=== PATIENT | female | born 1985 | race Caucasian/White ===

== ENCOUNTER 2025-02-08 11:19 | Inpatient (IN) | payer OTHER, SELFPAY ==
--- NOTE | ~2025-02-08 | CT_ITS ---
EXAMINATION: CT ABDOMEN PELVIS WITH IV CONTRAST HISTORY: abdominal pain, nausea, vomiting COMPARISON: There are no prior studies for available comparison. TECHNIQUE: CT scan of the abdomen and pelvis was performed following administration of 85 mL Omnipaque 350 using standard departmental protocol. Coronal and sagittal reformatted images were generated and reviewed. Oral contrast material was not administered at the request of the referring physician. This CT exam was performed with one or more of the following dose reduction techniques: automated exposure control, adjustment of the mA and/or kV according to patient size, use of iterative reconstruction technique. DLP: 421 mGy-cm FINDINGS: LOWER CHEST: The visualized lung bases are clear. There is no pleural effusion. CARDIOVASCULATURE: The heart is normal in size. There is no pericardial effusion. LIVER: The liver is normal in size and contour. Numerous hepatic cysts are noted measuring up to 1.6 cm. The hepatic and portal veins are patent. GALLBLADDER / BILE DUCTS: The gallbladder is surgically absent. There is no intra or extrahepatic biliary ductal dilatation. SPLEEN: The spleen is normal in size. No focal splenic lesion is identified. PANCREAS: The pancreas is unremarkable in appearance. ADRENAL GLANDS: Within normal limits. KIDNEYS/RETROPERITONEUM: No renal calculi are identified. There is no hydronephrosis. Innumerable bilateral renal cysts are noted consistent with polycystic kidney disease. LYMPH NODES: No abdominal or pelvic lymphadenopathy. VASCULATURE: The abdominal aorta is normal in caliber. MESENTERY/PERITONEUM: There is trace free fluid in the cul-de-sac. No masses. There is no free intraperitoneal gas. STOMACH: There is wall thickening of the distal esophagus versus a small hiatal hernia. The remainder of the stomach is collapsed. SMALL BOWEL: The small bowel is normal in caliber. COLON: There is a large amount of stool throughout the colon. APPENDIX: The appendix is not seen, however no inflammatory changes are seen adjacent to the cecum. URINARY BLADDER/PELVIC ORGANS: The urinary bladder is collapsed, limiting evaluation. The uterus is unremarkable. There are multiple bilateral ovarian follicles. BONES / SOFT TISSUES: No suspicious bony or soft tissue abnormalities. CT/CT abdomen pelvis w IV con IMPRESSION: 1. Polycystic kidney disease. 2. Wall thickening of the distal esophagus versus a small hiatal hernia. This could be further evaluated with upper endoscopy or barium swallow. 3. Large amount of stool throughout the colon. Electronically signed by: Trevon Lee MD 02/08/2025 12:55 PM EDT RP
[2025-02-08 11:22] VITALS: BP 124/68; PULSE 109; RESP 26; TEMP 36.8; O2SAT 100; BMI 27.4
--- NOTE | 2025-02-08 11:22 | ED.GENADULT ---
HPI - General Adult General Chief complaint: Nausea/Vomiting/Diarrhea Stated complaint: Vomiting, SB, Chills, cant feel extremitys Time Seen by Provider: 02/08/25 11:47 Source: patient Mode of arrival: ambulatory Limitations: no limitations History of Present Illness ED Provider: Neeru Haro PA-C HPI narrative: Patient is a 39 year old assigned female at with a history of chronic nausea / vomiting and polycystic kidneys presenting to the emergency department today with nausea, vomiting, and epigastric pain. Patient states that she has been non stop vomiting since 02/05/2025. Patient states that she does not have her appendix. Patient states that she does not smoke or use marijuana. Patient denies any dizziness, lightheadedness, fever, chills, blurry vision, double vision, loss of vision, chest pain, difficulty breathing, shortness of breath, back pain, night sweats, pain with urination, increased urinary frequency, increased urinary urgency, blood in her urine or stool, syncope or a near syncopal episode, recent trauma or falls, bowel incontinence, bladder incontinence, or any other complaints at this time. Relieving factors: none Exacerbating factors: none Associated symptoms: nausea/vomiting Treatments prior to arrival: none Related Data Home Medications ?Medication ?Instructions ?Recorded ?Confirmed calcium carbonate (Tums) 300 mg PO TID PRN Indigestion 02/08/25 02/08/25 diphenhydramine 25 1 tab PO BEDTIME PRN Insomnia 02/08/25 02/08/25 mg-acetaminophen 500 mg tablet (Tylenol PM Extra Strength) Allergies Allergy/AdvReac Type Severity Reaction Status Date / Time No Known Allergies (No Known Allergy Verified 02/08/25 11:23 Allergies*) Review of Systems Constitutional: Constitutional: Reports no additional constitutional complaints, Denies chills, Denies fever(s) and Denies night sweats Eyes: Eyes: Reports no additional eye complaints, Denies blurry vision, Denies change in vision, Denies diplopia, Denies eye discharge, Denies loss of vision and Denies eye pain ENT: Denies dizziness Cardiovascular: Cardiovascular: Reports no additional cardiovascular complaints, Denies chest pain, Denies lightheadedness, Denies Loss of Consciousness and Denies dyspnea Respiratory: Respiratory: Reports no additional respiratory complaints and Denies dyspnea Gastrointestinal: Gastrointestinal: Reports no additional gastrointestinal complaints, Reports abdominal pain, Denies melena, Denies hematochezia, Denies change in bowel habits, Denies change in stool character, Reports nausea and Reports vomiting Genitourinary: Genitourinary: Denies hematuria, Denies urinary frequency, Denies dysuria, Denies urinary incontinence, Denies urinary hesitancy and Denies urinary urgency Musculoskeletal: Musculoskeletal: Reports no additional musculoskeletal complaints, Denies numbness and Denies tingling Neurologic: Denies dizziness, Denies loss of vision, Denies numbness and Denies tingling Psychiatric: Psychiatric: Reports no additional psychiatric complaints Endocrine: Endocrine: Reports no additional endocrine complaints Hematologic/Lymphatic: Hematologic/Lymphatic: Reports no additional hematologic/lymphatic complaints Allergic/Immunologic: Allergic/Immunologic: Reports no additional allergic/immunologic complaints PMFSH Past Medical History Attestation statement: The following information was validated with the patient. Source: old records reviewed and nursing notes reviewed Social History Social History Smoked in Last 30 Days: Yes Use of substances other than those prescribed or required for medical reasons: No Advance Directives: No Advance Directives Information Provided: Yes Do you have a plan to hurt others: No Plan Physical Exam ED Vital Signs: Vital Signs - 24 hr 02/08/25 11:22 02/08/25 12:52 Temperature 98.3 F 98.9 F Pulse Rate 109 H 74 Respiratory Rate 26 H 22 H Blood Pressure 124/68 159/94 H Pulse Oximetry 100 100 Oxygen Delivery Method Room Air Room Air BMI result Body Mass Index 27.4 Const General: cooperative, no acute distress, alert and awake Nutritional Appearance: well nourished Orientation/consciousness: patient oriented x3 HENMT Head: Yes normal to inspection and Yes atraumatic Ears: hearing grossly normal bilaterally and external ears normal General nose exam: Normal external nose present, no nasal discharge noted and no epistaxis Face and sinus: Yes normal facial exam, No abrasion and No laceration Mouth: Normal oral and palatal mucosa present, no drooling and no muffled voice Eyes General: appearance normal, both eyes and all related structures Periorbital: periorbital findings normal Eyelids: Yes eyelids normal Conjunctivae: conjunctivae normal Pupils: Equal, round and reactive pupils present EOM: EOMs intact bilaterally Neck Neck: Yes normal visual inspection, Yes full ROM and Yes no lymphadenopathy Resp Effort & Inspection: normal respiratory effort and able to speak in complete sentences Neuro General: patient oriented x3, moves all extremities and CN's II-XI intact bilaterally Cranial nerves: Yes Equal, round and reactive pupils present Cognition (Neuro): normal cognition Extrem General: Yes normal to inspection, Yes full ROM and Yes capillary refill normal Psych Appearance: grossly normal Mental Status: mental status grossly normal Affect: normal affect Attitude: cooperative Thought process: Normal thought process present Thought content: Normal thought content present Insight: Good insight present (Psych) Course Course Course Narrative: This is a rapid medical exam performed by Mely Li NP: Additional HPI, ROS, PE not included below will be deferred to primary provider. Patient is a 39-year-old female presenting to the ED with complaint of nausea, vomiting, chills since 3am Thursday. Complaining of tingling to bilateral forearms, hyperventilating in triage. Plan: viral panel, labs Medications Administered Generic Name Dose Route Start Last Admin Trade Name Freq PRN Reason Stop Dose Admin Lactated Ringer's 1,000 mls @ 150 mls/hr 02/08/25 14:15 02/08/25 14:22 Lr IVCONT 150 mls/hr .Q6H40M MARII Administration Discontinued Medications Generic Name Dose Route Start Last Admin Trade Name Freq PRN Reason Stop Dose Admin Al Hydroxide/Mg Hydroxide 15 ml 02/08/25 13:08 02/08/25 13:21 Magnesium Hydrox/Alum Hydrox 30 Ml Oral.Susp PO 02/08/25 13:09 15 ml ONCE ONE Administration Diazepam 2.5 mg 02/08/25 14:02 02/08/25 14:22 Diazepam 10 Mg/2 Ml Cartridge IVPUSH 02/08/25 14:03 2.5 mg STAT STA Administration Sodium Chloride 1,000 mls @ 999 mls/hr 02/08/25 12:00 02/08/25 14:05 Ns IV 02/08/25 13:00 Infused .Q1H1M MARII Infusion Magnesium Sulfate/Dextrose 1 gm in 100 mls @ 100 mls/hr 02/08/25 12:28 02/08/25 14:00 Magnesium Sulfate/D5w IV 02/08/25 13:27 Infused ONCE ONE Infusion Potassium Chloride 10 meq in 100 mls @ 100 mls/hr 02/08/25 12:30 02/08/25 14:25 Potassium Chloride/H20 IV 02/08/25 14:29 100 mls/hr Q1H MARII Administration Iohexol 85 ml 02/08/25 12:41 02/08/25 12:43 Iohexol 350 Mg/Ml 100 Ml Infus..Btl IV 02/08/25 12:42 85 ml ONCE ONE Administration Morphine Sulfate 4 mg 02/08/25 11:55 02/08/25 12:31 Morphine Sulfate 4 Mg/Ml Cartridge IVPUSH 02/08/25 11:56 4 mg ONCE ONE Administration Protocol Ondansetron HCl 4 mg 02/08/25 11:53 02/08/25 12:31 Ondansetron Hcl 4 Mg/2 Ml Vial IVPUSH 02/08/25 11:54 4 mg ONCE ONE Administration Ondansetron HCl 4 mg 02/08/25 11:55 02/08/25 12:37 Ondansetron Hcl 4 Mg/2 Ml Vial IVPUSH 02/08/25 11:56 Not Given ONCE ONE Pantoprazole Sodium 40 mg 02/08/25 13:08 02/08/25 13:21 Pantoprazole Sodium 40 Mg/10 Ml Vial IVPUSH 02/08/25 13:09 40 mg ONCE ONE Administration Medical Decision Making Medical Decision Making [facility] Narrative: Patient is a 39 year old assigned female at with a history of chronic nausea / vomiting and polycystic kidneys presenting to the emergency department today with nausea, vomiting, and epigastric pain. Patient's physical exam was as noted in the physical exam portion of this note. Patient's blood work showed WBC 20.8, potassium 3.1, anion gap 25, BUN 33, CR of 1.59, calcium 12.6, mag of 1.4, and lipase of 101. Patient's urine showed no acute process. Patient's CT abd/pelvis showed no acute process. Patient was given IV fluids, zofran, and morphine which she stated helped her symptoms some but did not resolve them. Patient still unable to tolerate PO. Patient was given magnesium and potassium. Patient's clinical presentation is not consistent with sepsis (@1400). I spoke with the hospitalist team who agreed to admission for continued electrolyte management and fluid hydration. I explained my physical exam findings as well as all test results to the patient. I answered all questions asked by the patient. Patient verbalized agreement and understanding with this treatment plan and admission. Differential Diagnosis Differential Diagnoses: The differential diagnosis associated with the presentation includes Epigastric pain Pancreatitis Gastritis Nausea and vomiting Intractable nausea and vomiting Hypomagnesemia Hypokalemia Admission/Observation Consideration of admission/observation: Escalation of care including admission/observation considered Patient admitted as noted in the MDM Rationale portion of this note. Consult Healthcare Provider Management of the patient was discussed with: Hospitalist (agreed to admission as noted in the MDM Rationale portion of this note. ) Lab Data [facility] Lab Attestation statement: I reviewed the patient's lab results. My interpretation of these results are in the MDM Rationale portion of this note. 02/08/25 11:55 02/08/25 11:55 Labs: Lab Results 02/08/25 02/08/25 Range/Units 11:51 11:55 WBC 20.8 H (4.8-10.8) X10*3/uL RBC 5.11 (4.20-5.50) X10*6/uL Hgb 16.8 H (12.0-16.0) g/dl Hct 47.1 H (37.0-47.0) % MCV 92.2 (80.0-98.0) fL MCH 32.9 (27.0-33.0) pg MCHC 35.7 H (31.0-35.0) g/dl RDW 12.0 (11.0-16.0) % Plt Count 360 (160-400) X10*3/uL MPV 9.9 (9.4-12.3) fL Immature Gran % (Auto) 0.5 H (0.0-0.4) % Neut % (Auto) 85.2 H (45-73) % Lymph % (Auto) 10.5 L (20-40) % Fisher % (Auto) 3.6 (2-11) % Eos % (Auto) 0.0 (0-4) % Baso % (Auto) 0.2 (0-2) % Lymph # (Auto) 2.2 (1.2-4.9) X10*3/uL Fisher # (Auto) 0.8 (0.1-1.2) X10*3/uL Eos # (Auto) 0.0 (0.0-0.4) X10*3/uL Baso # (Auto) 0.1 (0.0-0.2) X10*3/uL Abs Immat Gran (auto) 0.10 H (0.00-0.03) X10*3/uL Absolute Neuts (auto) 17.7 H (2.0-8.3) x10*3/uL Absolute Nucleated RBC 0.000 (0.0-0.012) X10*3/uL Nucleated RBC % (auto) 0.0 (0.0-0.2) /100WBC Sodium 137 (135-145) mmol/L Potassium 3.1 L (3.3-5.1) mmol/L Chloride 94 L (96-108) mmol/L Carbon Dioxide 21 L (22-29) mmol/L Anion Gap 25 H (12-20) BUN 33 H (9-16) mg/dL Creatinine 1.59 H (0.5-1.4) mg/dL Estim Creat Clear Calc 43.4 Estimated GFR 36 Random Glucose 110 (60-115) mg/dL Calcium 12.6 H* (8.4-10.2) mg/dL Phosphorus 1.6 L (2.7-4.5) mg/dL Magnesium 1.4 L* (1.6-2.6) mg/dL Total Bilirubin 1.3 H (0.0-1.0) mg/dL AST 30 (5-31) U/L ALT 14 (0-31) U/L Alkaline Phosphatase 92 (39-117) U/L Total Protein 7.7 (6.5-8.0) g/dL Albumin 5.0 (3.5-5.0) g/dL Lipase 101 H (8-78) U/L TSH 0.75 (0.32-4.0) uIU/mL Beta HCG, Quant < 2 mIU/mL Urine Color Yellow Urine Appearance Clear Urine pH 7.5 (5.0-9.0) Ur Specific [place] 1.020 (1.005-1.025) Urine Protein 30 (1+) H (Neg-Trace) mg/dL Urine Glucose (UA) Negative (Negative) mg/dL Urine Ketones >=160 (Negative) mg/dL Urine Blood Trace H (Negative) Urine Nitrite Negative (Negative) Ur Leukocyte Esterase Small (1+) H (Negative) Urine RBC 0-2 (0-2) /HPF Urine WBC 0-5 (0-5) /HPF Ur Squamous Epith Cells 3-5 (0-2) /HPF Urine Bacteria None Seen (None Seen) Hyaline Casts 0-2 (0-2) /LPF Influenza Type A (PCR) NEGATIVE (Negative) Influenza Type B (PCR) NEGATIVE (Negative) RSV RNA Qual (PCR) NEGATIVE (Negative) SARS-CoV-2 RNA (RT-PCR) NEGATIVE (Negative) Independent Interpretation I performed an independent interpretation of an: CT Scan Interpretation: My interpretation is in agreement with the radiologist's impression of this imaging study. Report Number: [id number]: Total DLP = 0.00 mGy-cm EXAMINATION: CT ABDOMEN PELVIS WITH IV CONTRAST HISTORY: abdominal pain, nausea, vomiting COMPARISON: There are no prior studies for available comparison. TECHNIQUE: CT scan of the abdomen and pelvis was performed following administration of 85 mL Omnipaque 350 using standard departmental protocol. Coronal and sagittal reformatted images were generated and reviewed. Oral contrast material was not administered at the request of the referring physician. This CT exam was performed with one or more of the following dose reduction techniques: automated exposure control, adjustment of the mA and/or kV according to patient size, use of iterative reconstruction technique. DLP: 421 mGy-cm FINDINGS: LOWER CHEST: The visualized lung bases are clear. There is no pleural effusion. CARDIOVASCULATURE: The heart is normal in size. There is no pericardial effusion. LIVER: The liver is normal in size and contour. Numerous hepatic cysts are noted measuring up to 1.6 cm. The hepatic and portal veins are patent. GALLBLADDER / BILE DUCTS: The gallbladder is surgically absent. There is no intra or extrahepatic biliary ductal dilatation. SPLEEN: The spleen is normal in size. No focal splenic lesion is identified. PANCREAS: The pancreas is unremarkable in appearance. ADRENAL GLANDS: Within normal limits. KIDNEYS/RETROPERITONEUM: No renal calculi are identified. There is no hydronephrosis. Innumerable bilateral renal cysts are noted consistent with polycystic kidney disease. LYMPH NODES: No abdominal or pelvic lymphadenopathy. VASCULATURE: The abdominal aorta is normal in caliber. MESENTERY/PERITONEUM: There is trace free fluid in the cul-de-sac. No masses. There is no free intraperitoneal gas. STOMACH: There is wall thickening of the distal esophagus versus a small hiatal hernia. The remainder of the stomach is collapsed. SMALL BOWEL: The small bowel is normal in caliber. COLON: There is a large amount of stool throughout the colon. APPENDIX: The appendix is not seen, however no inflammatory changes are seen adjacent to the cecum. URINARY BLADDER/PELVIC ORGANS: The urinary bladder is collapsed, limiting evaluation. The uterus is unremarkable. There are multiple bilateral ovarian follicles. BONES / SOFT TISSUES: No suspicious bony or soft tissue abnormalities. CT/CT abdomen pelvis w IV con IMPRESSION: 1. Polycystic kidney disease. 2. Wall thickening of the distal esophagus versus a small hiatal hernia. This could be further evaluated with upper endoscopy or barium swallow. 3. Large amount of stool throughout the colon. Electronically signed by: Trevon Lee MD 02/08/2025 12:55 PM EDT RP Dictated By: Trevon Lee MD Signed By: Electronically signed by Trevon Lee MD 02/08/25 1255 Radiology Impression Discussion of test interpretation with radiology: I have reviewed the radiologist's reading. Critical Care Time Critical Care Time Critical Care Time: Yes Total Critical Care Time: 37 Attestation: I spent 37 minutes of Critical Care Time with this patient. This does not include time spent on separately reported billable procedures. Discharge Plan Discharge Clinical Impression: Nausea & vomiting, Acute hypokalemia, Hypomagnesemia Patient Disposition: Admitted As Inpatient
[2025-02-08 12:01] LABS: MANUAL DIFF FLAG NO
[2025-02-08 12:02] LABS: Hematocrit 47.1 % (37.0-47.0); Hemoglobin 16.8 g/dl (12.0-16.0); Imm Gran Abs Auto 0.10 X10*3/uL (0.00-0.03); Imm Gran Pct Auto 0.5 % (0.0-0.4); Lymphocytes Absolute Auto 2.2 X10*3/uL (1.2-4.9); Mean Corpuscular HGB Conc 35.7 g/dl (31.0-35.0); Mean Corpuscular Hemoglobin 32.9 pg (27.0-33.0); Mean Corpuscular Volume 92.2 fL (80.0-98.0); NRBC Abs Auto 0.000 X10*3/uL (0.0-0.012); NRBC Pct Auto 0.0 /100WBC (0.0-0.2); Platelet Count 360 X10*3/uL (160-400); Red Blood Count 5.11 X10*6/uL (4.20-5.50); White Blood Count 20.8 X10*3/uL (4.8-10.8)
[2025-02-08 12:04] LABS: Appearance Urine Clear; Glucose Urine UA Negative (Negative); PH 7.5 (5.0-9.0); Specific Gravity - Urine 1.020 (1.005-1.025); UMIC TRIGGER UACC YES
[2025-02-08 12:11] LABS: UACC Culture Trigger YES
[2025-02-08 12:26] LABS: Alanine Aminotransferase 14 U/L (0-31); Albumin Level 5.0 g/dL (3.5-5.0); Alkaline Phosphatase 92 U/L (39-117); Anion Gap 25 (12-20); Aspartate Amino Transferase 30 U/L (5-31); Blood Urea Nitrogen 33 mg/dL (9-16); Calcium 12.6 mg/dL (8.4-10.2); Carbon Dioxide 21 mmol/L (22-29); Chloride 94 mmol/L (96-108); Creatinine Clr Calc Pharmacy 43.4; Estimated Glomerular Filt Rate 36; Lipase 101 U/L (8-78); Magnesium 1.4 mg/dL (1.6-2.6); Potassium 3.1 mmol/L (3.3-5.1); Sodium 137 mmol/L (135-145); Total Protein 7.7 g/dL (6.5-8.0)
--- OUTSIDE RECORDS SUMMARY | 2025-02-08 12:35 | XMS_ITS | Clinical Summary ---
Author Organization [facility], Address [address] [place] [address] [place] [address] Phone Care Team Providers Care Helpdesk Technician Name Role Phone Lucas Oliveira MD Primary Care Provider [phone] Allergies No known active allergies Medications topiramate (TOPAMAX) 25 MG tablet Take 25 mg by mouth 2 (two) times a day Active traZODone (DESYREL) 50 MG tablet Take 1 tablet (50 mg total) by mouth at bed time 30 tablet 5 01/28/2023 Active FLUoxetine (PROzac) 10 MG capsule Take 1 capsule (10 mg total) by mouth 1 (one) time each day 90 capsule 3 01/28/2023 Active topiramate (TOPAMAX) 50 MG tablet TAKE 1 TABLET BY MOUTH EVERY MORNING, AT NOON AND IN THE EVENING 90 tablet 5 07/27/2023 Active lisinopril-hydr oCHLOROthiazide (PRINZIDE,ZESTO RETIC) 10-12.5 MG per tablet Take 1 tablet by mouth 1 (one) time each day 90 tablet 3 08/31/2023 Active Active Problems Problem Noted Date Diagnosed Date Essential hypertension 01/15/2022 H/O: kidney disease 01/15/2022 Adult type polycystic kidney disease type 1 01/18 Social History Tobacco Use Types Packs/Day Years Used Date Smoking Tobacco: Every Day Cigarettes Smokeless Tobacco: Never Comments Unknown Sex and Gender Information Value Date Recorded Sex Assigned at Not on file Legal Sex Female 2:57 PM EDT Gender Identity Not on file Sexual Orientation Not on file Last Filed Vital Signs Vital Sign Reading Time Taken Comments Blood Pressure 132/74 01/21/2022 10:12 AM EDT Pulse - - Temperature - - Respiratory Rate - - Oxygen Saturation - - Inhaled Oxygen Concentration - - Weight - - Height - - Body Mass Index - - Plan of Treatment Health Maintenance Due Date Last Done Comments Hepatitis B Vaccine (1 of 3 - 19+ 3-dose series) 12/15 Pneumococcal Vaccine: Peds ( 0 to 5 Years) and At-Risk Patients (6 to 49 Years) (1 of 2 - PCV) 2005 Influenza Vaccine (#1) 2025 Insurance [facility] [employer] Care Teams Helpdesk Technician Relationship Specialty Start Date End Date Lucas Oliveira MD [address] [place] [address] PCP - General Family Medicine 01/29/21
--- OUTSIDE RECORDS SUMMARY | 2025-02-08 12:35 | XMS_ITS | Clinical Summary ---
Author Organization [facility] Address [address] [place] [address] Care Team Providers Care Eligibility Specialist Name Role Phone Unavailable Primary Care Provider Unavailabl e Social History Tobacco Use Types Packs/Day Years Used Date Smoking Tobacco: Never Assessed Sex and Gender Information Value Date Recorded Sex Assigned at Female 07/28/2020 10:39 AM EST Gender Identity Female 07/29/2020 1:46 PM EST Sexual Orientation Not on file Plan of Treatment Health Maintenance Due Date Last Done Comments Hepatitis B Vaccines (1 of 3 - 3-dose series) 1986 Hepatitis C Screening 1986 COVID-19 Vaccine (#1) 06/17/1987 Depression Screening 1998 Preventative Health Evaluation 2004 DTap / Tdap / Td (1 - Tdap) 2005 Cervical Cancer Screening (P ap Smear) 12/16/2007 Influenza Vaccine (#1) 2025 Pneumococcal Vaccine Aged Out No long er eligible based on patient's age to complete this topic RSV Ped < 20 months Aged Out No longe r eligible based on patient's age to complete this topic
--- OUTSIDE RECORDS SUMMARY | 2025-02-08 12:35 | XMS_ITS | Clinical Summary ---
Author Organization [facility] it Address [address] [place] [address] Care Team Providers Care Laboratory Tester Name Role Phone Ray Martinez MD Primary Care Provider Unava ilable Surgical History Surgery Date Site/Laterality Comments APPENDECTOMY 2002 PROCEDURE: HISTORICAL APPENDECTOMY SECTION 2005 PROCEDURE: HISTORICAL DELIVERY CHOLECYSTECTOMY PROCEDURE: HISTORICAL CHOLECYSTECTOMY Medical History Medical History Date Comments Anxiety DX:Anxiety Family History Medical History Relation Name Comments Crohn's disease Brother 1 Other: hypoplastic left heart Daughter 1 Other cancer Maternal Grandmother Liver c ancer, Thyroid Disease Other: Crohn's disease Mother Other: polycystic kidney disease Mother Relation Name Status Comments Brother 1 Brother 2 Alive Daughter 1 Daughter 2 Father Alive Maternal Grandmother Mother Alive polycystic kidn ey disease, crohns Sister 1 Alive crohns Sister 2 Alive poltcystic ovar y Sister 3 Alive Sister 4 Alive Social History Tobacco Use Types Packs/Day Years Used Date Smoking Tobacco: Every Day Cigarettes Smokeless Tobacco: Never Alcohol Use Standard Drinks/Week Comments No 0 (1 standard drink = 0.6 oz pur e alcohol) Comments Unknown Sex and Gender Information Value Date Recorded Sex Assigned at Not on file Legal Sex Female 6:04 PM EST Gender Identity Not on file Sexual Orientation Not on file Obstetrics History Plan of Treatment Health Maintenance Due Date Last Done Comments DTaP,Tdap,and Td Vaccines (1 - Tdap) 2005 Hepatitis B Vaccines (1 of 3 - 19+ 3-dose series) 2005 Cervical Cancer Screening: P ap Smear 12/16/2007 COVID-19 Vaccine (2023-2 5 season) 2024 Depression Screening 07/20/2024 Influenza Vaccine (#1) 2025 HIB Vaccines Aged Out No longer eligi ble based on patient's age to complete this topic HPV Vaccines Aged Out No longer eligi ble based on patient's age to complete this topic Hepatitis A Vaccines Aged Out No long er eligible based on patient's age to complete this topic IPV Vaccines Aged Out No longer eligi ble based on patient's age to complete this topic MMR Vaccines Aged Out No longer eligi ble based on patient's age to complete this topic Meningococcal ACWY Vaccine Aged Out N o longer eligible based on patient's age to complete this topic Meningococcal B Vaccine Aged Out No l onger eligible based on patient's age to complete this topic Pneumococcal Vaccine: Pediat rics (0 to 5 Years) and At-Risk Patients (6 to 49 Years) Aged Out No longer eligible b ased on patient's age to complete this topic RSV Immunization Patients Un michael 20 months Aged Out No longer eligible b ased on patient's age to complete this topic Varicella Vaccines Aged Out No longer eligible based on patient's age to complete this topic Care Teams Laboratory Tester Relationship Specialty Start Date End Date Ray Martinez MD PCP - General Internal Medicine 10/24/15
[2025-02-08] MEDS: iohexoL 350 MG/ML 100 ML INFUS..BTL 85 ML IV (12:43)
[2025-02-08 12:44] LABS: Resp Syncy Virus RNA Qual PCR NEGATIVE (Negative); SARS COV2 PCR INHOUSE NEGATIVE (Negative)
[2025-02-08 12:52] VITALS: BP 159/94; PULSE 74; RESP 22; TEMP 37.2; O2SAT 100
[2025-02-08] MEDS: Potassium Chloride/H20 10 MEQ/100 ML PIGGYBACK 100 MEQ IV ×2 (12:54→14:25)
[2025-02-08] MEDS: Magnesium Hydrox/Alum Hydrox 30 ML ORAL.SUSP 15 ML PO (13:21)
--- NOTE | 2025-02-08 14:18 | PHA.MEDREC ---
Pharmacy Consult ? Medication Reconciliation Pharmacy has completed the medication reconciliation. Spoke to patient at bedside, she says she only takes tums and tylenol pm as needed. She took both last night before bed.
[2025-02-08] MEDS: Lactated Ringers 1,000 ML 150 ML IVCONT (14:22)
[2025-02-08] MEDS: diazePAM 10 MG/2 ML CARTRIDGE 2.5 MG IVPUSH (14:22)
[2025-02-08 14:25] LABS: Thyroid Stimulating Hormone 0.75 uIU/mL (0.32-4.0)
--- NOTE | 2025-02-08 16:14 | P.HPHOSP_ITS ---
History of Present Illness Date of Service: 02/08/25 Attending physician on admission: Vince Neely Chief Complaint: Nausea and vomiting Deneen Hirsch is a 39 years old woman with past medical history significant for polycystic kidney disease presents to the emergency department complaining of multiple events of nausea nonbloody vomiting and generalized abdominal discomfort. Her symptoms started on Thursday morning. Denied diarrhea fever. She mentioned that she has been the same symptoms in the past and that has been experiencing heartburn for which she takes a lot of Tums tablets (she said sometimes 10 tablets daily). She also takes Tylenol PM at night as needed for insomnia. She has not sick for medical attention for these symptoms until today. She did not report any acute cardiopulmonary symptoms. She denied tobacco smoking, alcohol abuse or illicit drug use. Patient does not remember what is her creatinine at baseline but thinks that her GFR is between 30 and 40. In the ED, patient was found to have mild degree of tachycardia and tachypnea. There is no hypotension. Oxygen saturation is normal on room air. Blood workup was remarkable for leukocytosis of 20.8, elevated hemoglobin of 16.9. There are multiple electrolyte imbalances including hypokalemia, hypomagnesemia and hypercalcemia. BUN is 33 and creatinine 1.59. LFTs are normal. Lipase 101. Urinalysis not consistent with UTI. Viral testing is negative for COVID-19, RSV and influenza. Abdominal pelvis CT scan with IV contrast showed polycystic kidney disease, wall thickening of the distal esophagus versus small hiatal hernia and large amounts of stool throughout the colon. ED tx: NS 1 L bolus, Zofran 8 mg IV total, morphine 4 mg IV, Maalox 15 mg p.o., Protonix 40 mg IV, magnesium sulfate 1 g IV, KCl AP Review of Systems 2 Review of Systems: All 12 systems were reviewed and normal except as noted in HPI. [facility] Medical History (Updated 02/08/25 @ 16:48 by Vince Neely MD) Polycystic kidney disease Social History Smoked in Last 30 Days: Yes Use of substances other than those prescribed or required for medical reasons: No Advance Directives: No Advance Directives Information Provided: Yes Do you have a plan to hurt others: No Plan Meds Allergies Allergy/AdvReac Type Severity Reaction Status Date / Time No Known Allergies (No Known Allergy Verified 02/08/25 11:23 Allergies*) Active Medications: Current Medications Acetaminophen (Acetaminophen 325 Mg Tablet) 975 mg PO Q6H PRN PRN Reason: Pain, Mild 1-3,fever,headache Calcium Carbonate (Calcium Carbonate 750 Mg Tab.Chew) 750 mg PO Q4H PRN PRN Reason: Heartburn Heparin Sodium (Porcine) (Heparin Sodium,Porcine 5,000 Unit/Ml Vial) 5,000 unit SUBCUT Q12H [facility] Lactated Ringer's (Lr) 1,000 mls @ 150 mls/hr IVCONT .Q6H40M [facility] Last Admin: 02/08/25 14:22 Dose: 150 mls/hr Magnesium Hydroxide (Milk Of Magnesia 30 Ml Oral.Susp) 30 ml PO DAILY PRN PRN Reason: Constipation Melatonin (Melatonin 3 Mg Tablet) 6 mg PO BEDTIME PRN PRN Reason: Insomnia Pantoprazole Sodium (Pantoprazole Sodium 40 Mg/10 Ml Vial) 40 mg IVPUSH DAILY@0630 [facility] Sodium Chloride (0.9 % Sodium Chloride Flush 3 Ml Syringe) 3 ml IVFLUSH QSHIFT [facility] Last Admin: 02/08/25 16:04 Dose: Not Given Home Medications ?Medication ?Instructions ?Recorded ?Confirmed ?Last Taken ?Type calcium carbonate (Tums) 300 mg PO TID PRN Indigestio n 02/08/25 02/08/25 02/07/25 History diphenhydramine 25 1 tab PO BEDTIME PRN Insomni a 02/08/25 02/08/25 02/07/25 History mg-acetaminophen 500 mg tablet (Tylenol PM Extra Strength) Physical Exam 2 Vital Signs and Narrative: Vital Signs: Last Vital Signs Temp 98.9 F 02/08/25 12:52 Pulse 74 02/08/25 12:52 Resp 22 H 02/08/25 12:52 BP 159/94 H 02/08/25 12:52 Pulse Ox 100 02/08/25 12:52 O2 Del Method Room Air 02/08/25 12:52 BMI result Body Mass Index 27.4 Constitutional - Awake and Alert. She looks very anxious. HEENT - PER, EOMI. Normal sclerae. Dry mucosa. Heart - RRR, No murmurs Lungs - Normal lung expansion, Normal respiratory effort, No respiratory distress, CTA bilaterally Abdomen - Nondistended, diffuse tenderness to palpation. No guarding or rebound. Increased bowel sounds. Extremities - no calf tenderness bilaterally, no swelling Musculoskeletal - Normal inspection, normal ROM Skin - Warm/Dry Neurological - Alert & oriented x3. Moving all extremities spontaneously. Normal speech. Psychological - Appropriate affect Results Labs 02/08/25 11:55 02/08/25 11:55 Labs: Laboratory Results - last 24 hr 02/08/25 02/08/25 11:51 11:55 MCV 92.2 MCH 32.9 MCHC 35.7 H RDW 12.0 Plt Count 360 MPV 9.9 Immature Gran % (Auto) 0.5 H Neut % (Auto) 85.2 H Lymph % (Auto) 10.5 L [place] % (Auto) 3.6 Eos % (Auto) 0.0 Baso % (Auto) 0.2 Lymph # (Auto) 2.2 [place] # (Auto) 0.8 Eos # (Auto) 0.0 Baso # (Auto) 0.1 Abs Immat Gran (auto) 0.10 H Absolute Neuts (auto) 17.7 H Absolute Nucleated RBC 0.000 Nucleated RBC % (auto) 0.0 Anion Gap 25 H Estim Creat Clear Calc 43.4 Estimated GFR 36 Random Glucose 110 Calcium 12.6 H* Phosphorus 1.6 L Magnesium 1.4 L* Total Bilirubin 1.3 H AST 30 ALT 14 Alkaline Phosphatase 92 Total Protein 7.7 Albumin 5.0 Lipase 101 H TSH 0.75 Beta HCG, Quant < 2 Urine Color Yellow Urine Appearance Clear Urine pH 7.5 Ur Specific [place] 1.020 Urine Protein 30 (1+) H Urine Glucose (UA) Negative Urine Ketones >=160 Urine Blood Trace H Urine Nitrite Negative Ur Leukocyte Esterase Small (1+) H Urine RBC 0-2 Urine WBC 0-5 Ur Squamous Epith Cells 3-5 Urine Bacteria None Seen Hyaline Casts 0-2 Influenza Type A (PCR) NEGATIVE Influenza Type B (PCR) NEGATIVE RSV RNA Qual (PCR) NEGATIVE SARS-CoV-2 RNA (RT-PCR) NEGATIVE Imaging Radiologist's Impressions: Impressions Abdomen/Pelvis CT 02/08/25 11:35 IMPRESSION: 1. Polycystic kidney disease. 2. Wall thickening of the distal esophagus versus a small hiatal hernia. This could be further evaluated with upper endoscopy or barium swallow. 3. Large amount of stool throughout the colon. Electronically signed by: Trevon Lee MD 02/08/2025 12:55 PM EDT RP Assessment and Plan (1) Nausea & vomiting: Qualifiers: Vomiting type: unspecified Qualified Code(s): R11.2 - Nausea with vomiting, unspecified Status: Acute (2) Acute hypokalemia: Status: Acute (3) Hypomagnesemia: Status: Acute Plan Deneen Hirsch is a 39 y/o woman with a PMHx significant for polycystic kidney disease presents with: Nausea, vomiting and generalized abdominal pain. NPO except for meds and sips with water. Continue IV fluids. Symptomatic therapy with antiemetic and IV pain meds. GI consult - pt had has multiple events of GI symptoms. Hypercalcemia likely secondary to calcium tablets (Tums) -pt has been experiencing severe heartburn for a long time, abdomen and pelvis CT scan showed wall thickening of the distal esophagus versus small hiatal hernia. Discontinue Tums. ?Milk - Alkali syndrome - check pH, PTH, ionized calcium. pH and vitamin- D. Continue IV fluids. Continue to monitor calcium level. Hypomagnesemia, hypokalemia and hypophosphatemia. Telemetry. Likely secondary to above. Replete as needed. Continue to monitor. CKD, secondary to polycystic kidney disease, possible acute on chronic due to multiple events of vomiting. Per patient her GFR 30-40. Continue IV fluids. Avoid nephrotoxic agents. Continue to monitor renal function. Large amount of stool throughout the colon/constipation, likely secondary to Tums. Senokot and Dulcolax DVT prophylaxis: Heparin Code status: Full Patient will need hospitalization for at least 2 midnights for ongoing GI symptoms, renal insufficiency and multiple electrolyte imbalances treatment with IV fluids, antiemetic therapy and and electrolyte repletion as needed. Quality Stroke Does the patient have a stroke diagnosis?: No VTE Prior VTE?: No VTE Risk Level:: Medical - moderate - high VTE Device Contraindication: Treatment Not Indicated VTE Drug Contraindication: N/A - Med Ordered
[2025-02-08 16:19] VITALS: BP 170/86; PULSE 62; RESP 19; TEMP 37.4; O2SAT 100
[2025-02-08] MEDS: Lactated Ringers 1,000 ML 125 ML IVCONT (17:34)
[2025-02-08 18:18] VITALS: BP 144/81; PULSE 60; RESP 18; TEMP 37.3; O2SAT 100
[2025-02-08 19:04] LABS: MANUAL DIFF FLAG NO
[2025-02-08 19:08] LABS: Hematocrit 41.8 % (37.0-47.0); Hemoglobin 15.0 g/dl (12.0-16.0); Imm Gran Abs Auto 0.06 X10*3/uL (0.00-0.03); Imm Gran Pct Auto 0.4 % (0.0-0.4); Lymphocytes Absolute Auto 1.6 X10*3/uL (1.2-4.9); Mean Corpuscular HGB Conc 35.9 g/dl (31.0-35.0); Mean Corpuscular Hemoglobin 33.3 pg (27.0-33.0); Mean Corpuscular Volume 92.9 fL (80.0-98.0); NRBC Abs Auto 0.000 X10*3/uL (0.0-0.012); NRBC Pct Auto 0.0 /100WBC (0.0-0.2); Platelet Count 285 X10*3/uL (160-400); Red Blood Count 4.50 X10*6/uL (4.20-5.50); White Blood Count 14.7 X10*3/uL (4.8-10.8)
[2025-02-08 19:09] LABS: VBG HCO3 28 mmol/L (22-26); VBG O2 % Saturation 78.0 %
[2025-02-08 19:10] LABS: Venous Blood Gas Refer to POC result
[2025-02-08 19:24] LABS: Anion Gap 16 (12-20); Blood Urea Nitrogen 31 mg/dL (9-16); Calcium 11.0 mg/dL (8.4-10.2); Carbon Dioxide 25 mmol/L (22-29); Chloride 100 mmol/L (96-108); Creatinine Clr Calc Pharmacy 50.7; Estimated Glomerular Filt Rate 44; Magnesium 1.6 mg/dL (1.6-2.6); Potassium 3.5 mmol/L (3.3-5.1); Sodium 137 mmol/L (135-145)
[2025-02-08 19:35] LABS: Parathyroid Hormone Intact < 4.0 pg/mL (8.7-77.1)
[2025-02-08 20:31] VITALS: BP 156/86; PULSE 58; RESP 18; TEMP 36.9; O2SAT 96
[2025-02-08 21:37] VITALS: BMI 29.8
[2025-02-08 23:51] VITALS: BP 138/80; PULSE 57; RESP 16; TEMP 37.1; O2SAT 97
[2025-02-09] MEDS: Magnesium Hydrox/Alum Hydrox 30 ML ORAL.SUSP PO (01:31)
[2025-02-09] MEDS: 0.9 % Sodium Chloride Flush 3 ML SYRINGE IVFLUSH ×4 (01:31→20:49)
[2025-02-09 04:00] VITALS: BP 140/83; PULSE 55; RESP 16; TEMP 36.2; O2SAT 98
[2025-02-09 06:27] LABS: MANUAL DIFF FLAG NO
[2025-02-09 06:34] LABS: Hematocrit 43.2 % (37.0-47.0); Hemoglobin 15.5 g/dl (12.0-16.0); Imm Gran Abs Auto 0.06 X10*3/uL (0.00-0.03); Imm Gran Pct Auto 0.4 % (0.0-0.4); Lymphocytes Absolute Auto 2.0 X10*3/uL (1.2-4.9); Mean Corpuscular HGB Conc 35.9 g/dl (31.0-35.0); Mean Corpuscular Hemoglobin 33.4 pg (27.0-33.0); Mean Corpuscular Volume 93.1 fL (80.0-98.0); NRBC Abs Auto 0.000 X10*3/uL (0.0-0.012); NRBC Pct Auto 0.0 /100WBC (0.0-0.2); Platelet Count 291 X10*3/uL (160-400); Red Blood Count 4.64 X10*6/uL (4.20-5.50); White Blood Count 15.0 X10*3/uL (4.8-10.8)
[2025-02-09 06:50] LABS: Anion Gap 17 (12-20); Blood Urea Nitrogen 30 mg/dL (9-16); Calcium 9.7 mg/dL (8.4-10.2); Carbon Dioxide 25 mmol/L (22-29); Chloride 99 mmol/L (96-108); Creatinine Clr Calc Pharmacy 50.9; Estimated Glomerular Filt Rate 42; Magnesium 1.9 mg/dL (1.6-2.6); Potassium 3.4 mmol/L (3.3-5.1); Sodium 138 mmol/L (135-145)
[2025-02-09 07:12] VITALS: BP 144/84; PULSE 67; RESP 18; TEMP 37.2; O2SAT 95
--- NOTE | 2025-02-09 08:31 | MHC.CM.PN ---
CM met with Patient at bedside. 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 Home/self care is the goal and CM has initiated and will follow for dc planning. Patient has no PCP, PCP pamphlet to be provided.Patient's will transport to home at time of dc.
--- NOTE | 2025-02-09 09:21 | CONS_ITS ---
DATE OF SERVICE: 02/09/2025 REFERRING PHYSICIAN: Dr. Real Neely REASON FOR CONSULTATION: Nausea, vomiting, and abdominal pain. HISTORY OF PRESENT ILLNESS: The patient is a pleasant 39-year-old woman who was admitted to the hospital after presenting to the emergency room with complaints of nausea, vomiting, and abdominal discomfort. This started 3 days prior to admission. There was no hematemesis or melena. She has a history of gastroesophageal reflux disease and uses approximately 10 calcium carbonate tablets on a daily basis. She denies tobacco, alcohol, or drug use. She does have a history of polycystic kidney disease and is followed by Dr. Porter. Since admission, she has been treated with supportive medications including antiemetics and a proton pump inhibitor with some improvement in her symptoms. She last vomited this morning at 6 o'clock. She also reports some change in her bowel movements with the stools, which were nonbloody, but small in volume with some associated lower abdominal discomfort. She has never undergone endoscopy or colonoscopy. As part of her evaluation, she underwent imaging with CT scanning, which is reviewed. This is interpreted as showing wall thickening of distal esophagus versus a small hiatal hernia, for which further evaluation with upper endoscopy was suggested. There was a large amount of stool throughout the colon. Her mother does have a history of Crohn disease, polycystic kidney disease was also noted, we reviewed this today. Laboratory studies showed elevation of her white blood cell count at 20.8. Chemistries were remarkable for elevations of her BUN and creatinine and hypercalcemia consistent with milk-alkali syndrome. PAST MEDICAL HISTORY: Polycystic kidney disease. She denies other medical illnesses. PAST SURGICAL HISTORY: Includes cholecystectomy, appendectomy, and section. CURRENT MEDICATIONS: She has been on lisinopril in the past, but is not currently taking this. Tums are used excessively as above. ALLERGIES: THERE ARE NONE REPORTED. FAMILY HISTORY: This is reviewed with the patient and is positive for Crohn disease in her mother. SOCIAL HISTORY: She formally smoked, but does not currently. She denies drug and alcohol use. REVIEW OF SYSTEMS: SKIN: No pruritus. HEENT: Negative. CARDIOPULMONARY: No shortness of breath or chest pain. GASTROINTESTINAL: As above. GENITOURINARY: Negative. NEUROPSYCHIATRIC: Negative. PHYSICAL EXAMINATION: GENERAL: Shows a pleasant female, lying comfortably in bed. VITAL SIGNS: Reviewed in the electronic medical record and are stable. SKIN: Anicteric. HEENT: Shows no scleral icterus. NECK: Without lymphadenopathy or thyromegaly. LUNGS: Clear. HEART: Shows regular rate and rhythm. S1, S2. No murmur. ABDOMEN: Soft without focal masses or tenderness. Bowel sounds are present. There is some mild discomfort to palpation over the lower abdomen. EXTREMITIES: Without edema. LABORATORY DATA AND IMAGING STUDIES: Reviewed. IMPRESSION: 1. Nausea and vomiting. 2. Abdominal pain. 3. Change in bowel movements. I have recommended that she undergo further evaluation with upper endoscopy and colonoscopy because of her upper and lower GI symptoms and this can be arranged as an outpatient after her current hospitalization for her symptoms as she would not tolerate a bowel prep at this time. I agree with treating her symptomatically with IV fluids, antiemetics, and proton pump inhibitor. She was aware of risks and benefits of endoscopy and colonoscopy and agrees to proceed after her discharge. She will be contacted to schedule those. Thanks for asking me to see her. I will follow her in the hospital with you. MD EMILY Moeller/DEVEN / [phone]
[2025-02-09 10:59] VITALS: BP 130/72; PULSE 59; RESP 20; TEMP 36.8; O2SAT 97
--- NOTE | 2025-02-09 11:01 | P.CONNP_ITS ---
History of Present Illness Reason for Consult Consult date: 02/09/25 Chief Complaint Chief complaint: Hypomagnesemia, hypercalcemia History of Present Illness Narrative: 39 y/o female with a history of polycystic kidney disease- states her kidney doctor is Dr Porter. Presented 02/08 with nausea, vomiting and generalized abdominal discomfort x4 days. Had previous episode like this after heartburn and taking up to 10 tablets of tums daily. Nephrology consulted for multiple electrolyte abnormalities and low PTH 02/08 K 3.1, serum bicarb 21, AG 25, VBG pH 7.49, cacium 12.6, magnesium 1.4, phosphorous 1.6, PTH <4.0. Creatinine 1.59 on 02.08, 02/09 is 1.41. Patient is unsure what her baseline is, though per hospitalists notes, she had thought GFR between 30-40 which it is currently. She denies alcohol/drug use. States she takes a lot of tums and was doing so prior to hospitalization. Her electrolytes have since normalized today holding calcium supplements. CT scan showed polycystic kidney disease, wall thickening of the esophagus vs small hiatal hernia, large stool burden in colon. - imaging with IV contrast. Pt states she continues to have nausea and abdominal pain, otherwise no concerns. Review of Systems Review of Systems Yes all other systems are reviewed and are negative PMFSH Past Medical History Medical History (Updated 02/09/25 @ 11:15 by Alice Gamble, UNIQUE, COATER OPERATOR-) Polycystic kidney disease Social History Social History Household Members: Spouse Housing: House Patient Tobacco Use Status: Current someday Tobacco user Cigarettes Per Day: 10 service: No Meds Allergies Allergy/AdvReac Type Severity Reaction Status Date / Time No Known Allergies (No Known Allergy Verified 02/08/25 11:23 Allergies*) Active Medications: Current Medications Acetaminophen (Acetaminophen 325 Mg Tablet) 975 mg PO Q6H PRN PRN Reason: Pain, Mild 1-3,fever,headache Last Admin: 02/09/25 00:27 Dose: 975 mg Bisacodyl (Bisacodyl 5 Mg Tablet.) 10 mg PO BEDTIME MARII Last Admin: 02/08/25 22:09 Dose: 10 mg Heparin Sodium (Porcine) (Heparin Sodium,Porcine 5,000 Unit/Ml Vial) 5,000 unit SUBCUT Q12H [facility] Last Admin: 02/09/25 08:25 Dose: 5,000 unit Hydromorphone HCl (Hydromorphone Hcl 0.5 Mg/0.5 Ml Syringe) 0.5 mg IVPUSH Q4H PRN; Protocol PRN Reason: Pain, Severe (Pain Scale 7-10) Last Admin: 02/09/25 08:26 Dose: 0.5 mg Magnesium Hydroxide (Milk Of Magnesia 30 Ml Oral.Susp) 30 ml PO DAILY PRN PRN Reason: Constipation Melatonin (Melatonin 3 Mg Tablet) 6 mg PO BEDTIME PRN PRN Reason: Insomnia Last Admin: 02/08/25 22:09 Dose: 6 mg Ondansetron HCl (Ondansetron Hcl 4 Mg/2 Ml Vial) 4 mg IVPUSH Q6H PRN PRN Reason: Nausea and Vomiting Last Admin: 02/09/25 08:26 Dose: 4 mg Pantoprazole Sodium (Pantoprazole Sodium 40 Mg/10 Ml Vial) 40 mg IVPUSH DAILY@0630 [facility] Last Admin: 02/09/25 05:50 Dose: 40 mg Senna (Sennosides 8.6 Mg Tablet) 8.6 mg PO BEDTIME PRN PRN Reason: Constipation Sodium Chloride (0.9 % Sodium Chloride Flush 3 Ml Syringe) 3 ml IVFLUSH QSHIFT [facility] Last Admin: 02/09/25 08:26 Dose: 3 ml Home Medications ?Medication ?Instructions ?Recorded ?Confirmed ?Last Taken ?Type calcium carbonate (Tums) 300 mg PO TID PRN Indigestio n 02/08/25 02/08/25 02/07/25 History diphenhydramine 25 1 tab PO BEDTIME PRN Insomni a 02/08/25 02/08/25 02/07/25 History mg-acetaminophen 500 mg tablet (Tylenol PM Extra Strength) Physical Exam Vital Signs: Last Vital Signs Temp 98.2 F 02/09/25 10:59 Pulse 59 02/09/25 10:59 Resp 20 02/09/25 10:59 BP 130/72 02/09/25 10:59 Pulse Ox 97 02/09/25 10:59 O2 Del Method Room Air 02/09/25 10:59 BMI result Body Mass Index 29.8 Const General: no acute distress, alert and awake Resp Effort & Inspection: normal respiratory effort and able to speak in complete sentences Auscultation: clear to auscultation bilaterally Cardio Rate: regular rate Rhythm: regular rhythm Heart sounds: S1 normal heart sound present and S2 normal heart sound present GI Palpation (GI): Soft to palpation and Tenderness to palpation present (GI) General: Yes no CVA tenderness Back/Spine/Pelvis Back: no CVA tenderness Skin Rashes: no rashes Extrem General: No edema Results Lab Results 02/09/25 06:19 02/09/25 06:19 Lab results: Chemistry 02/08/25 02/08/25 02/09/25 11:55 18:57 06:19 Sodium 137 137 138 Potassium 3.1 L 3.5 3.4 Carbon Dioxide 21 L 25 25 BUN 33 H 31 H 30 H Creatinine 1.59 H 1.36 1.41 H Calcium 12.6 H* 11.0 H D 9.7 D Phosphorus 1.6 L Hematology 02/08/25 02/08/25 02/09/25 11:55 18:57 06:19 WBC 20.8 H 14.7 H 15.0 H Hgb 16.8 H 15.0 15.5 Plt Count 360 285 291 Urinalysis 02/08/25 11:51 Urine Color Yellow Urine Appearance Clear Urine pH 7.5 Ur Specific [place] 1.020 Urine Protein 30 (1+) H Urine Glucose (UA) Negative Urine Ketones >=160 Urine Blood Trace H Urine Nitrite Negative Ur Leukocyte Esterase Small (1+) H Urine RBC 0-2 Urine WBC 0-5 Ur Squamous Epith Cells 3-5 Hyaline Casts 0-2 Assessment and Plan (1) Polycystic kidney disease: Status: Acute (2) Acute hypokalemia: Status: Acute (3) Hypomagnesemia: Status: Acute (4) Hypercalcemia: Status: Acute Plan Multiple electrolyte abnormalities and alkalosis have resolved with discontinuation of calcium supplementation. high serum calcium levels from high tums intake suppressing PTH levels. Hypokalemia likely secondary to metabolic alkalosis- resolved. recommend avoiding calcium supplementation in the future. recommend she continue to follow up with her kidney doctor for ongoing monitoring and management of PCKD. Procedures Date of Service Date of Service: 02/09/25
--- NOTE | 2025-02-09 14:53 | P.PNIM_ITS ---
Subjective Subjective Date of Service: 02/09/25 Interval History: Electrolytic Abnormalities Review of Systems Nausea and vomiting somewhat improving ,has some abdominal soreness Review of Systems: Yes all other systems are reviewed and are negative Physical Exam 2 Exam: Exam: Appearance: Alert.? Oriented X3. cvs: [id number], [id number] . res: clear to auscultation ,no rhonchii or wheezing abd: no rebound or guarding , mild abd soarness , bs present. ext pulses present , no cyanosis . neuro: axo3 , nonfocal. Vital Signs: Vital Signs: Last Vital Signs Temp 98.2 F 02/09/25 10:59 Pulse 59 02/09/25 10:59 Resp 20 02/09/25 10:59 BP 130/72 02/09/25 10:59 Pulse Ox 97 02/09/25 10:59 O2 Del Method Room Air 02/09/25 10:59 BMI result Body Mass Index 29.8 Objective Data Active Medications Acetaminophen (Acetaminophen 325 Mg Tablet) 975 mg PO Q6H PRN PRN Reason: Pain, Mild 1-3,fever,headache Last Admin: 02/09/25 00:27 Dose: 975 mg Documented By: BEBO Bisacodyl (Bisacodyl 5 Mg Tablet.Dr) 10 mg PO BEDTIME MARII Last Admin: 02/08/25 22:09 Dose: 10 mg Documented By: BEBO Heparin Sodium (Porcine) (Heparin Sodium,Porcine 5,000 Unit/Ml Vial) 5,000 unit SUBCUT Q12H [facility] Last Admin: 02/09/25 08:25 Dose: 5,000 unit Documented By: RONALD Hydromorphone HCl (Hydromorphone Hcl 0.5 Mg/0.5 Ml Syringe) 0.5 mg IVPUSH Q4H PRN; Protocol PRN Reason: Pain, Severe (Pain Scale 7-10) Last Admin: 02/09/25 13:56 Dose: 0.5 mg Documented By: RONALD Magnesium Hydroxide (Milk Of Magnesia 30 Ml Oral.Susp) 30 ml PO DAILY PRN PRN Reason: Constipation Melatonin (Melatonin 3 Mg Tablet) 6 mg PO BEDTIME PRN PRN Reason: Insomnia Last Admin: 02/08/25 22:09 Dose: 6 mg Documented By: BEBO Ondansetron HCl (Ondansetron Hcl 4 Mg/2 Ml Vial) 4 mg IVPUSH Q6H PRN PRN Reason: Nausea and Vomiting Last Admin: 02/09/25 08:26 Dose: 4 mg Documented By: RONALD Pantoprazole Sodium (Pantoprazole Sodium 40 Mg/10 Ml Vial) 40 mg IVPUSH DAILY@0630 [facility] Last Admin: 02/09/25 05:50 Dose: 40 mg Documented By: BEBO Senna (Sennosides 8.6 Mg Tablet) 8.6 mg PO BEDTIME PRN PRN Reason: Constipation Sodium Chloride (0.9 % Sodium Chloride Flush 3 Ml Syringe) 3 ml IVFLUSH QSHIFT [facility] Last Admin: 02/09/25 08:26 Dose: 3 ml Documented By: RONALD Labs 02/09/25 06:19 02/09/25 06:19 Labs: Laboratory Results - last 24 hr 02/08/25 02/08/25 02/09/25 18:57 19:05 06:19 MCV 92.9 93.1 MCH 33.3 H 33.4 H MCHC 35.9 H 35.9 H RDW 12.0 12.0 Plt Count 285 291 MPV 9.9 10.1 Immature Gran % (Auto) 0.4 0.4 Neut % (Auto) 83.8 H 80.5 H Lymph % (Auto) 10.7 L 13.5 L [place] % (Auto) 5.0 5.5 Eos % (Auto) 0.0 0.0 Baso % (Auto) 0.1 0.1 Lymph # (Auto) 1.6 2.0 [place] # (Auto) 0.7 0.8 Eos # (Auto) 0.0 0.0 Baso # (Auto) 0.0 0.0 Abs Immat Gran (auto) 0.06 H 0.06 H Absolute Neuts (auto) 12.3 H 12.1 H Absolute Nucleated RBC 0.000 0.000 Nucleated RBC % (auto) 0.0 0.0 VBG pH 7.49 H VBG pCO2 37 VBG pO2 48 VBG HCO3 28 H VBG O2 Saturation 78.0 VBG Base Excess 5.1 Anion Gap 16 17 Estim Creat Clear Calc 50.7 50.9 Estimated GFR 44 42 Random Glucose 91 87 Calcium 11.0 H D 9.7 D Magnesium 1.6 1.9 25-OH Vitamin D Total 47.4 PTH Intact < 4.0 L Microbiology Microbiology Results: Microbiology 02/08/25 Unknown Urine Culture - Final Urine clean catch - Clean Catch Midstream No growth. Assessment and Plan (1) Nausea & vomiting: Status: Acute Assessment and Plan: 39 y/o woman with a PMHx significant for polycystic kidney disease presents with: Nausea, vomiting and generalized abdominal pain. NPO except for meds and sips with water. Continue IV fluids. Symptomatic therapy with antiemetic and IV pain meds. GI seen patient -IV fluids, antiemetics, and proton pump inhibitor, outpatient egd/colo. Hypercalcemia likely secondary to calcium tablets (Tums) -pt has been experiencing severe heartburn for a long time, abdomen and pelvis CT scan showed wall thickening of the distal esophagus versus small hiatal hernia. Discontinue Tums: ph mild elevated , PTHlow , ionized calcium and vitamin-D leevls pending ,calcium levels improving. Continue IV fluids. nephro evalnoted: Multiple electrolytic abnormality resolved with discontinue his calcium supplement hypokalemia secondary to metabolic alkalosis resolving. Avoid calcium supplement for future.recommend she continue to follow up with her kidney doctor for ongoing monitoring and management of PCKD. Hypomagnesemia, hypokalemia and hypophosphatemia. Telemetry. Likely secondary to above. Replete as needed. Continue to monitor. CKD, secondary to polycystic kidney disease, possible acute on chronic due to multiple events of vomiting. Per patient her GFR 30-40. Continue IV fluids. Avoid nephrotoxic agents. Continue to monitor renal function. Large amount of stool throughout the colon/constipation, likely secondary to Tums. Senokot and Dulcolax DVT prophylaxis: Heparin Code status: Full ongoing need for ongoing GI symptoms, renal insufficiency and multiple electrolyte imbalances treatment with IV fluids, antiemetic therapy and and electrolyte repletion as needed. Quality Stroke Does the patient have a stroke diagnosis?: No VTE Prior VTE?: No VTE Risk Level:: Medical - moderate - high VTE Device Contraindication: Treatment Not Indicated VTE Drug Contraindication: N/A - Med Ordered
[2025-02-09 15:41] VITALS: BP 137/77; PULSE 63; RESP 18; TEMP 36.6; O2SAT 96
[2025-02-09 20:00] VITALS: BP 121/76; PULSE 63; RESP 20; TEMP 36.5; O2SAT 97
[2025-02-10] VITALS (7 sets, daily range): BP systolic 104–183; BP diastolic 67–93; PULSE 56–68; RESP 16–20; TEMP 36.1–37; O2SAT 95–98
[2025-02-10] MEDS: 0.9 % Sodium Chloride Flush 3 ML SYRINGE IVFLUSH ×2 (07:56→19:59)
[2025-02-10 09:27] LABS: Anion Gap 14 (12-20); Blood Urea Nitrogen 28 mg/dL (9-16); Calcium 9.1 mg/dL (8.4-10.2); Carbon Dioxide 23 mmol/L (22-29); Chloride 102 mmol/L (96-108); Creatinine Clr Calc Pharmacy 60.4; Estimated Glomerular Filt Rate 51; Magnesium 2.0 mg/dL (1.6-2.6); Potassium 3.3 mmol/L (3.3-5.1); Sodium 136 mmol/L (135-145)
[2025-02-10] MEDS: Milk of Magnesia 30 ML ORAL.SUSP PO (12:02)
--- NOTE | 2025-02-10 12:45 | MHC.CM.PN ---
PT MEDICALLY CLEARED FOR DC HOME SELF-CARE W/FAMILY FOR TRANSPORT
--- NOTE | 2025-02-10 13:34 | PM.DS ---
DS: Providers Provider Date of Service: 02/10/25 Date of admission: 02/08/25 13:21 Date of discharge: 02/10/25 Primary care physician: None Physician Consults: 02/08/25 16:16 Consult to Gastroenterology Routine Consulting Provider: Jonas Caldera Reason for consultation: Multiple events of N/V + abdominal pain Has provider been notified: No 02/09/25 08:17 Consult to Nephrology Routine Consulting Provider: [facility] Reason for consultation: multiple electrolytic abnoramlities ,low pth Has provider been notified: No Attending physician on discharge: Jeffrey Hi Discharging clinician: Jeffrey Hi DS: Diagnosis Discharge Diagnosis (1) Nausea & vomiting: Status: Acute DS: Summary Hospital Course Hospital Course: HPI:39 years old woman with past medical history significant for polycystic kidney disease presents to the emergency department complaining of multiple events of nausea nonbloody vomiting and generalized abdominal discomfort. Her symptoms started on Thursday morning. Denied diarrhea fever. She mentioned that she has been the same symptoms in the past and that has been experiencing heartburn for which she takes a lot of Tums tablets (she said sometimes 10 tablets daily). She also takes Tylenol PM at night as needed for insomnia. She has not sick for medical attention for these symptoms until today. She did not report any acute cardiopulmonary symptoms. She denied tobacco smoking, alcohol abuse or illicit drug use. Patient does not remember what is her creatinine at baseline but thinks that her GFR is between 30 and 40. In the ED, patient was found to have mild degree of tachycardia and tachypnea. There is no hypotension. Oxygen saturation is normal on room air. Blood workup was remarkable for leukocytosis of 20.8, elevated hemoglobin of 16.9. There are multiple electrolyte imbalances including hypokalemia, hypomagnesemia and hypercalcemia. BUN is 33 and creatinine 1.59. LFTs are normal. Lipase 101. Urinalysis not consistent with UTI. Viral testing is negative for COVID-19, RSV and influenza. Abdominal pelvis CT scan with IV contrast showed polycystic kidney disease, wall thickening of the distal esophagus versus small hiatal hernia and large amounts of stool throughout the colon. ED tx: NS 1 L bolus, Zofran 8 mg IV total, morphine 4 mg IV, Maalox 15 mg p.o., Protonix 40 mg IV, magnesium sulfate 1 g IV, KCl AP. Hospital course: 39 y/o woman with a PMHx significant for polycystic kidney disease presents with: Patient admitted for nausea vomiting and abdominal pain: Given hydration, antiemetic and PPI: CT abdomen showed atrial hernia and distal esophageal thickening: Seen by GI-with the above supportive care patient seems to be improved. Will send patient home with p.o. PPI, encouraged for hydration, added laxative for constipation. Electrolytic abnormalities including hypokalemia, hypercalcemia, hypophosphatemia: Seem improved with the hydration and stopping calcium supplements. ckd :moniter renal function/electrolytes. Leukocytosis seems reactive patient is asymptomatic currently-denies any urinary or abdominal or respiratory complaints. Constipation: Patient is passing bowels, added p.o. laxatives. plan: Multiple electrolyte abnormalities and alkalosis have resolved with discontinuation of calcium supplementation. high serum calcium levels from high tums intake suppressing PTH levels. Hypercalcemia resolved. Hypokalemia likely secondary to metabolic alkalosis- resolved. recommend avoiding calcium supplementation in the future. recommend she continue to follow up with her kidney doctor for ongoing monitoring and management of PCKD. Patient in addition is to follow up with GI for EGD and colonoscopy outpatient. Limited K-Phos supplement given. moniter cbc and bmp outpatient. Above management discussed with the patient in detail length she understand and in agreement with the above plan, time spent 40 minute, all question answered. Staff was present during conversation. Time Attestation Total time managing care of this patient today: 40 mintues. Discharge Coordination Time (in mins): 40 min Quality: Safe Use of Opioids Does Pt have an Active Cancer Diagnosis on the Problem List?: No Quality: Stroke Does the patient have a stroke diagnosis?: No Physical Exam Exam: Exam: Appearance: Alert.? Oriented X3. cvs: rrr, [id number] . res: clear to auscultation ,no rhonchii or wheezing abd: no rebound or guarding , mild abd soarness , bs present. ext pulses present , no cyanosis . neuro: axo3 , nonfocal. Vital Signs: Vital Signs: Last Vital Signs Temp 97.6 F 02/10/25 11:12 Pulse 63 02/10/25 11:12 Resp 18 02/10/25 11:12 BP 133/85 02/10/25 11:12 Pulse Ox 98 02/10/25 11:12 O2 Del Method Room Air 02/10/25 11:12 BMI result Body Mass Index 29.8 DS: Data Data Completed and Pending Labs on day of discharge: Laboratory Results - last 24 hr 02/10/25 08:45 Sodium 136 Potassium 3.3 Chloride 102 Carbon Dioxide 23 Anion Gap 14 BUN 28 H Creatinine 1.19 Estim Creat Clear Calc 60.4 Estimated GFR 51 Random Glucose 69 Calcium 9.1 D Phosphorus 2.2 L Magnesium 2.0 Imaging Chest x-ray: Radiologist's impression: ITS Impressions Abdomen/Pelvis CT 02/08/25 11:35 IMPRESSION: 1. Polycystic kidney disease. 2. Wall thickening of the distal esophagus versus a small hiatal hernia. This could be further evaluated with upper endoscopy or barium swallow. 3. Large amount of stool throughout the colon. Discharge Plan Discharge Anticipated Discharge Date/Time: 02/10/25 11:46 Patient Disposition: Home, Self-Care Discharge Diagnosis: milk alkali ,constipation ,esophagitis/gasrtitis Referrals: Physician,None [Primary Care Provider, Medical] - 1 Week Discharge Medications: New potassium, sodium phosphates [Phos-NaK] 280-160-250 mg powder in packet 1 packet PO QID Qty: 12 0RF omeprazole 20 mg capsule,delayed release(DR/EC) 20 mg PO DAILY Qty: 30 0RF sennosides [Senna Lax] 8.6 mg Tablet 8.6 mg PO BEDTIME PRN (Reason: Constipation) Qty: 60 0RF docusate sodium [Colace] 100 mg capsule 100 mg PO DAILY PRN (Reason: constipation) Qty: 30 0RF Continued diphenhydramine-acetaminophen [Tylenol PM Extra Strength] 25-500 mg Tablet 1 tab PO BEDTIME PRN (Reason: Insomnia) Discontinued Tums 300 mg (750 mg) Tablet,Chewable 300 mg PO TID PRN (Reason: Indigestion) Discharge Orders: Discharge Order (Routine); Ordered 02/10/25 Ordered By: Jeffrey Hi Diet: Advance to usual diet Activity on Discharge: As tolerated Stand Alone Forms: Patient Portal Discharge page Print Language: Eritrean Care Plan Goals: as below. Health Concerns: continue po ppi. moniter bmp,phos levels outpatient,cbc outpatient. stop calcium supplements. follow up with Dr. Porter office. follow up with pcp. Plan of Treatment: as above. Assessment: as above.
--- NOTE | 2025-02-10 14:10 | P.CDIM_ITS ---
PROVIDER RESPONSE TEXT: To clarify, the appropriate diagnosis supported by the clinical indicators: Other (explain): simone on ckd QUERY TEXT: PHYSICIAN'S DOCUMENTATION REQUEST Date of Query: 02/10/2025 10:10 AM EDT Patient Name: Deneen Hirsch Admit Date: 02/08/2025 Dear Jeffrey Hi MD, A review of the medical record indicates additional documentation may be needed. Please review below and update the documentation accordingly. Clinical Indicators: CKD noted in progress note 02/09/25 vomiting GFR 30-40 IVF Please clarify which of the following accurately represents the patient's renal status: Acute renal failure Acute renal failure with suspected ATN Acute renal failure with other pathology (medullary, papillary, or cortical necrosis) Acute renal failure (with type, appropriate) on Chronic Kidney Disease (CKD), please specify stage Acute kidney injury (non-traumatic) CKD, please provide stage ESRD - CKD V now requiring permanent dialysis and/or transplant Other (explain) Clinically unable to determine (explain) Thank you, Carole Boudreaux RN Use of terms such as suspected, likely, concern for, or probable (associated with a specific diagnosis that is being evaluated, monitored, or treated as if it exists) are acceptable and can be coded in the inpatient setting, when documented at the time of discharge. Please use your independent medical judgment in providing your response. THIS QUERY IS PART OF THE PERMANENT MEDICAL RECORD
[2025-02-10 15:38] LABS: Calcium, Ionized 5.9 mg/dL (4.7-5.5)
[2025-02-10 16:33] LABS: Anion Gap 16 (12-20); Blood Urea Nitrogen 28 mg/dL (9-16); Calcium 8.8 mg/dL (8.4-10.2); Carbon Dioxide 24 mmol/L (22-29); Chloride 99 mmol/L (96-108); Creatinine Clr Calc Pharmacy 64.7; Estimated Glomerular Filt Rate 55; Potassium 3.2 mmol/L (3.3-5.1); Sodium 136 mmol/L (135-145)
--- NOTE | 2025-02-10 17:36 | P.PNIM_ITS ---
Subjective Subjective Date of Service: 02/10/25 Interval History: Patient was feeling better this morning but then she is still started having nausea vomiting Also feels somewhat tired Review of Systems As above. Review of Systems: Yes all other systems are reviewed and are negative Physical Exam 2 Exam: Exam: Appearance: Alert.? Oriented X3. cvs: [id number], [id number] . res: clear to auscultation ,no rhonchii or wheezing abd: no rebound or guarding , mild abd soarness , bs present. ext pulses present , no cyanosis . neuro: axo3 , nonfocal. Vital Signs: Vital Signs: Last Vital Signs Temp 98.0 F 02/10/25 16:00 Pulse 56 02/10/25 16:00 Resp 18 02/10/25 16:00 BP 150/84 H 02/10/25 16:00 Pulse Ox 98 02/10/25 16:00 O2 Del Method Room Air 02/10/25 16:00 BMI result Body Mass Index 29.8 Objective Data Active Medications Acetaminophen (Acetaminophen 325 Mg Tablet) 975 mg PO Q6H PRN PRN Reason: Pain, Mild 1-3,fever,headache Last Admin: 02/09/25 20:59 Dose: 975 mg Documented By: BEBO Bisacodyl (Bisacodyl 5 Mg Tablet.) 10 mg PO BEDTIME [facility] Last Admin: 02/09/25 20:49 Dose: 10 mg Documented By: BEBO Heparin Sodium (Porcine) (Heparin Sodium,Porcine 5,000 Unit/Ml Vial) 5,000 unit SUBCUT Q12H [facility] Last Admin: 02/10/25 07:55 Dose: 5,000 unit Documented By: JAYLYN Hydromorphone HCl (Hydromorphone Hcl 0.5 Mg/0.5 Ml Syringe) 0.5 mg IVPUSH Q4H PRN; Protocol PRN Reason: Pain, Severe (Pain Scale 7-10) Last Admin: 02/10/25 07:56 Dose: 0.5 mg Documented By: JAYLYN Magnesium Hydroxide (Milk Of Magnesia 30 Ml Oral.Susp) 30 ml PO DAILY PRN PRN Reason: Constipation Last Admin: 02/10/25 12:02 Dose: 30 ml Documented By: JAYLYN Melatonin (Melatonin 3 Mg Tablet) 6 mg PO BEDTIME PRN PRN Reason: Insomnia Last Admin: 02/08/25 22:09 Dose: 6 mg Documented By: BEBO Ondansetron HCl (Ondansetron Hcl 4 Mg/2 Ml Vial) 4 mg IVPUSH Q6H PRN PRN Reason: Nausea and Vomiting Last Admin: 02/10/25 15:02 Dose: 4 mg Documented By: JAYLYN Pantoprazole Sodium (Pantoprazole Sodium 40 Mg/10 Ml Vial) 40 mg IVPUSH DAILY@0630 [facility] Last Admin: 02/10/25 06:07 Dose: 40 mg Documented By: BEBO Senna (Sennosides 8.6 Mg Tablet) 8.6 mg PO BEDTIME PRN PRN Reason: Constipation Sodium Chloride (0.9 % Sodium Chloride Flush 3 Ml Syringe) 3 ml IVFLUSH QSHIFT [facility] Last Admin: 02/10/25 15:58 Dose: Not Given Documented By: JAYLYN Non-Admin Reason: Previously Administered Zolpidem Tartrate (Zolpidem Tartrate 5 Mg Tablet) 5 mg PO BEDTIME PRN PRN Reason: Insomnia Last Admin: 02/09/25 23:01 Dose: 5 mg Documented By: SHTYBAI Labs 02/09/25 06:19 02/10/25 16:16 Labs: Laboratory Results - last 24 hr 02/08/25 02/10/25 02/10/25 18:57 08:45 16:16 Anion Gap 14 16 Estim Creat Clear Calc 60.4 64.7 Estimated GFR 51 55 Random Glucose 69 80 Calcium 9.1 D 8.8 Ionized Calcium 5.9 H Phosphorus 2.2 L Magnesium 2.0 Assessment and Plan (1) Nausea & vomiting: Status: Acute Assessment and Plan: 39 y/o woman with a PMHx significant for polycystic kidney disease presents with: Nausea, vomiting and generalized abdominal pain. NPO except for meds and sips with water. Continue IV fluids. Symptomatic therapy with antiemetic and IV pain meds. GI seen patient -continue antiemetics, and proton pump inhibitor, outpatient egd/colo. Hypercalcemia likely secondary to calcium tablets (Tums) -pt has been experiencing severe heartburn for a long time, abdomen and pelvis CT scan showed wall thickening of the distal esophagus versus small hiatal hernia. Discontinue Tums: ph mild elevated , PTHlow , ionized calcium and vitamin-D leevls pending ,calcium levels improving. Continue IV fluids. nephro evalnoted: Multiple electrolytic abnormality resolved with discontinue his calcium supplement hypokalemia secondary to metabolic alkalosis resolving. Avoid calcium supplement for future.recommend she continue to follow up with her kidney doctor for ongoing monitoring and management of PCKD. Hypomagnesemia, hypokalemia and hypophosphatemia. Telemetry. Likely secondary to above. Replete as needed. Continue to monitor. CKD, secondary to polycystic kidney disease, possible acute on chronic due to multiple events of vomiting. Per patient her GFR 30-40. Continue IV fluids. Avoid nephrotoxic agents. Continue to monitor renal function. Large amount of stool throughout the colon/constipation, likely secondary to Tums. Senokot and Dulcolax DVT prophylaxis: Heparin Code status: Full ongoing need for ongoing GI symptoms, renal insufficiency and multiple electrolyte imbalances treatment with IV fluids, antiemetic therapy and and electrolyte repletion as needed. Quality Stroke Does the patient have a stroke diagnosis?: No VTE Prior VTE?: No VTE Risk Level:: Medical - moderate - high VTE Device Contraindication: Treatment Not Indicated VTE Drug Contraindication: N/A - Med Ordered
[2025-02-10] MEDS: Potassium Chloride ER 20 MEQ TAB.ER.PRT 40 MEQ PO (18:01)
[2025-02-10] MEDS: Lidocaine HCl Viscous 2 % 15 ML SOLUTION MUCOUS MEM (22:19)
[2025-02-10] MEDS: Magnesium Hydrox/Alum Hydrox 30 ML ORAL.SUSP PO (22:19)
[2025-02-11 03:43] VITALS: BP 121/76; PULSE 71; RESP 16; TEMP 36.7; O2SAT 98
[2025-02-11 07:28] VITALS: BP 111/70; PULSE 61; RESP 16; TEMP 36.3; O2SAT 97
[2025-02-11 07:58] LABS: Blood Urea Nitrogen 23 mg/dL (9-16); Calcium 8.6 mg/dL (8.4-10.2); Creatinine Clr Calc Pharmacy 61.4; Estimated Glomerular Filt Rate 52
[2025-02-11 09:15] LABS: Anion Gap 16 (12-20); Carbon Dioxide 21 mmol/L (22-29); Chloride 103 mmol/L (96-108); Potassium 3.9 mmol/L (3.3-5.1); Sodium 136 mmol/L (135-145)
[2025-02-11] MEDS: 0.9 % Sodium Chloride Flush 3 ML SYRINGE IVFLUSH (09:34)
[2025-02-11 11:39] VITALS: BP 106/68; PULSE 65; RESP 16; TEMP 36.2; O2SAT 96
--- NOTE | 2025-02-11 14:10 | HO.PM.IMPN ---
Subjective Subjective Date of Service: 02/11/25 Interval History: still feels nauseated ,po intake not adequate . Review of Systems Review of Systems: Yes all other systems are reviewed and are negative Physical Exam Exam: Exam: Appearance: Alert.? Oriented X3. cvs: rrr, [id number] . res: clear to auscultation ,no rhonchii or wheezing abd: no rebound or guarding , mild abd soarness , bs present. ext pulses present , no cyanosis . neuro: axo3 , nonfocal. Vital Signs: Vital Signs: Last Vital Signs Temp 97.1 F 02/11/25 11:39 Pulse 65 02/11/25 11:39 Resp 16 02/11/25 11:39 BP 106/68 02/11/25 11:39 Pulse Ox 96 02/11/25 11:39 O2 Del Method Room Air 02/11/25 11:39 BMI result Body Mass Index 29.8 Objective Data Active Medications Acetaminophen (Acetaminophen 325 Mg Tablet) 975 mg PO Q6H PRN PRN Reason: Pain, Mild 1-3,fever,headache Last Admin: 02/09/25 20:59 Dose: 975 mg Documented By: BEBO Bisacodyl (Bisacodyl 5 Mg Tablet.) 10 mg PO BEDTIME MARII Last Admin: 02/10/25 19:56 Dose: 10 mg Documented By: SHELLEY Heparin Sodium (Porcine) (Heparin Sodium,Porcine 5,000 Unit/Ml Vial) 5,000 unit SUBCUT Q12H [facility] Last Admin: 02/11/25 09:35 Dose: 5,000 unit Documented By: JAYLYN Hydromorphone HCl (Hydromorphone Hcl 0.5 Mg/0.5 Ml Syringe) 0.5 mg IVPUSH Q4H PRN; Protocol PRN Reason: Pain, Severe (Pain Scale 7-10) Last Admin: 02/11/25 09:34 Dose: 0.5 mg Documented By: JAYLYN Magnesium Hydroxide (Milk Of Magnesia 30 Ml Oral.Susp) 30 ml PO DAILY PRN PRN Reason: Constipation Last Admin: 02/10/25 12:02 Dose: 30 ml Documented By: JAYLYN Melatonin (Melatonin 3 Mg Tablet) 6 mg PO BEDTIME PRN PRN Reason: Insomnia Last Admin: 02/08/25 22:09 Dose: 6 mg Documented By: BEBO Ondansetron HCl (Ondansetron Hcl 4 Mg/2 Ml Vial) 4 mg IVPUSH Q6H PRN PRN Reason: Nausea and Vomiting Last Admin: 02/11/25 05:17 Dose: 4 mg Documented By: SHELLEY Pantoprazole Sodium (Pantoprazole Sodium 40 Mg/10 Ml Vial) 40 mg IVPUSH DAILY@0630 [facility] Last Admin: 02/11/25 05:17 Dose: 40 mg Documented By: SHELLEY Senna (Sennosides 8.6 Mg Tablet) 8.6 mg PO BEDTIME PRN PRN Reason: Constipation Sodium Chloride (0.9 % Sodium Chloride Flush 3 Ml Syringe) 3 ml IVFLUSH QSHIFT [facility] Last Admin: 02/11/25 09:34 Dose: 3 ml Documented By: FIGDIDORITA Zolpidem Tartrate (Zolpidem Tartrate 5 Mg Tablet) 5 mg PO BEDTIME PRN PRN Reason: Insomnia Last Admin: 02/10/25 22:21 Dose: 5 mg Documented By: SHELLEY Labs 02/09/25 06:19 02/11/25 06:50 Labs: Laboratory Results - last 24 hr 02/08/25 02/10/25 02/11/25 18:57 16:16 06:50 Hold Purple Top SEE NOTE Anion Gap 16 16 Estim Creat Clear Calc 64.7 61.4 Estimated GFR 55 52 Random Glucose 80 79 Calcium 8.8 8.6 Ionized Calcium 5.9 H Assessment and Plan (1) Nausea & vomiting: Status: Acute Assessment and Plan: 39 y/o woman with a PMHx significant for polycystic kidney disease presents with: Nausea, vomiting and generalized abdominal pain. no vomiting ,abd pain improving still very nauseated /dec po intake. Symptomatic therapy with antiemetic and IV pain meds. GI seen patient -continue antiemetics, and proton pump inhibitor, outpatient egd/colo. Hypercalcemia likely secondary to calcium tablets (Tums) -pt has been experiencing severe heartburn for a long time, abdomen and pelvis CT scan showed wall thickening of the distal esophagus versus small hiatal hernia. Discontinue Tums: ph mild elevated , PTHlow , ionized calcium and vitamin-D leevls pending ,calcium levels improving. Continue IV fluids. nephro evalnoted: Multiple electrolytic abnormality resolved with discontinue his calcium supplement hypokalemia secondary to metabolic alkalosis resolving. Avoid calcium supplement for future.recommend she continue to follow up with her kidney doctor for ongoing monitoring and management of PCKD. Hypomagnesemia, hypokalemia and hypophosphatemia. Telemetry. Likely secondary to above. Replete as needed. Continue to monitor. CKD, secondary to polycystic kidney disease, possible acute on chronic due to multiple events of vomiting. Per patient her GFR 30-40. Continue IV fluids. Avoid nephrotoxic agents. Continue to monitor renal function. Large amount of stool throughout the colon/constipation, likely secondary to Tums. Senokot and Dulcolax DVT prophylaxis: Heparin Code status: Full ongoing need for ongoing GI symptoms, renal insufficiency and multiple electrolyte imbalances treatment with IV fluids, antiemetic therapy and and electrolyte repletion as needed. Quality Stroke Does the patient have a stroke diagnosis?: No VTE Prior VTE?: No VTE Risk Level:: Medical - moderate - high VTE Device Contraindication: Treatment Not Indicated VTE Drug Contraindication: N/A - Med Ordered
[2025-02-11 14:57] VITALS: BP 125/85; PULSE 64; RESP 18; TEMP 36.6; O2SAT 99
== END 2025-02-11 16:00 | disposition home or self-care (01) | DRG 641 ==
LOC: HO.ED 13:13 → HO.EDOVER 13:36 → HO.IMC 19:13
PROVIDERS: Registered Nurse Emergency; Admitting Provider Internal Medicine; Emergency Provider Emergency Medicine; Visit Provider Internal Medicine
DX: E83.52 Hypercalcemia (principal); Q61.3 Polycystic kidney, unspecified; E87.3 Alkalosis; N17.9 Acute kidney failure, unspecified; N18.9 Chronic kidney disease, unspecified; F17.210 Nicotine dependence, cigarettes, uncomplicated; Z71.6 Tobacco abuse counseling; T47.1X5A Adverse effect of other antacids and anti-gastric-secretion drugs, initial encounter; K29.70 Gastritis, unspecified, without bleeding; K20.90 Esophagitis, unspecified without bleeding; E83.39 Other disorders of phosphorus metabolism; E87.6 Hypokalemia; E83.42 Hypomagnesemia; K59.03 Drug induced constipation; Z20.822 Contact with and (suspected) exposure to COVID-19; Z79.899 Other long term (current) drug therapy
CPT/HCPCS: 36415; 74177; 80048; 80053; 81001; 81003; 82306; 82330; 82803; 83690; 83735; 83970; 84100; 84443; 84702; 85025; 87086; 87637; 99285; J1171; J1644; J2270; J2405; J2470; J2765; J3360; J3475; J3480; J7120; Q9967

== ENCOUNTER → 2025-02-08 11:55 | Outpatient (BNV) | payer OTHER, SELFPAY | PROVIDERS: Visit Provider Radiology Diagnostic Radiology | DX: R11.10 Vomiting, unspecified (principal) | CPT/HCPCS: 74177 ==

== ENCOUNTER → 2025-02-08 13:21 | Outpatient (BNV) | payer OTHER, SELFPAY | PROVIDERS: Admitting Provider Internal Medicine; Emergency Provider Emergency Medicine; Visit Provider Internal Medicine | DX: R11.2 Nausea with vomiting, unspecified (principal); E87.6 Hypokalemia; E83.42 Hypomagnesemia | CPT/HCPCS: 99223; 99231; 99239 ==

== ENCOUNTER → 2025-02-08 13:21 | Outpatient (BNV) | payer OTHER, SELFPAY | PROVIDERS: Admitting Provider Internal Medicine; Emergency Provider Emergency Medicine; Visit Provider Nurse Practitioner Family | DX: Q61.3 Polycystic kidney, unspecified (principal); E87.6 Hypokalemia; E83.42 Hypomagnesemia; E83.52 Hypercalcemia | CPT/HCPCS: 99222 ==

== ENCOUNTER 2025-02-23 10:11 | Outpatient (REF) | payer OTHER, SELFPAY ==
--- OUTSIDE RECORDS SUMMARY | 2025-02-23 10:40 | XMS_ITS | Clinical Summary ---
Author Organization [facility] Address [address] [place] [address] Care Team Providers Care Medical Malpractice Paralegal Name Role Phone Unavailable Primary Care Provider [...]
--- OUTSIDE RECORDS SUMMARY | 2025-02-23 10:40 | XMS_ITS | Clinical Summary ---
Author Organization [facility], Address [address] [place] [address] Phone Care Team Providers Care Process Mold Technician Name Role Phone Unavailable Primary Care Provider Unavailabl e Allergies No known active allergies Medications topiramate [...] type polycystic kidney disease type 1 01/18 Encounters Date Type Department Care Team Description 02/22/2025 Documentation Only [facility] [address] [address] [place] Pleitez [place] 02/21/2025 3:00 PM EDT Office Visit [facility] [address] [place] [address] Fidencio Porter MD Adult type polycystic kidney disease type 1 (Primary Dx) from Last 3 Months Social History Tobacco Use Types Packs/Day Years [...] Office Visit [facility] [address] [place] [phone] Fidencio Porter MD [address] [place] [address] [place] [phone] 05/30/2025 3:20 PM EST Office [facility] [address] [place] [phone] Fidencio Porter MD [address] [place] [address] [place] [phone] Health Maintenance Due Date Last Done Comments Hepatitis B Vaccine (1 of 3 - 19+ 3-dose series) 12/15 Pneumococcal Vaccine: Peds ( 0 to 5 Years) and At-Risk Patients (6 to 49 Years) (1 of 2 - PCV) 2005 Influenza Vaccine (#1) 2025 Insurance [employer]
--- OUTSIDE RECORDS SUMMARY | 2025-02-23 10:41 | XMS_ITS | Clinical Summary ---
Author Organization [facility] it Address [address] [place] [address] Care Team Providers Care Barrel Raiser Name Role Phone Ray Martinez MD Primary [...] age to complete this topic Care Teams Barrel Raiser Relationship Specialty Start Date End Date Ray Martinez MD PCP - General Internal Medicine 10/24/15
[2025-02-23 11:31] LABS: Anion Gap 12 (12-20); Blood Urea Nitrogen 15 mg/dL (9-16); Calcium 9.3 mg/dL (8.4-10.2); Carbon Dioxide 25 mmol/L (22-29); Chloride 106 mmol/L (96-108); Estimated Glomerular Filt Rate 48; Potassium 4.7 mmol/L (3.3-5.1); Sodium 138 mmol/L (135-145)
[2025-02-23 12:13] LABS: Microalbum/Creatinine Ratio Ur 12.4 ug/mg cr (<30)
== END 2025-02-23 10:12 | disposition home or self-care (01) ==
LOC: HO.LAB 10:11
PROVIDERS: Visit Provider Internal Medicine Nephrology
DX: Q61.2 Polycystic kidney, adult type (principal)
CPT/HCPCS: 36415; 80048; 82043; 82570

== ENCOUNTER 2025-02-28 10:30 | Day surgery (SDC) | payer OTHER, SELFPAY ==
--- OUTSIDE RECORDS SUMMARY | 2025-02-16 11:09 | XMS_ITS | Clinical Summary ---
Author Organization [facility], Address [address] [place] [address] [place] [address] Phone Care Team Providers Care Rotational Moulding Operator Name Role Phone Lucas Oliveira MD Primary Care Provider [phone] Allergies No known active allergies Medications topiramate [...] Mass Index - - Plan of Treatment Upcoming Encounters Date Type Department Care Team (Late st Contact Info) Description 03/02/2025 10:40 AM EDT Office Visit [facility] [address] [place] [phone] Fidencio Porter MD [address] [place] [address] Health Maintenance Due Date Last Done Comments Hepatitis B Vaccine (1 of 3 - 19+ 3-dose series) 12/15 Pneumococcal Vaccine: Peds ( 0 to 5 Years) and At-Risk Patients (6 to 49 Years) (1 of 2 - PCV) 2005 Influenza Vaccine (#1) [address] [place] [address] [employer] Care Teams Rotational Moulding Operator Relationship Specialty Start Date End Date Lucas Oliveira MD [address] [place] [address] PCP - General Family Medicine 01/29/21
--- OUTSIDE RECORDS SUMMARY | 2025-02-16 11:09 | XMS_ITS | Clinical Summary ---
Author Organization [facility] Address [address] [place] [address] Care Team Providers Care Electrotherapist Name Role Phone Unavailable Primary Care Provider [...]
--- OUTSIDE RECORDS SUMMARY | 2025-02-16 11:09 | XMS_ITS | Clinical Summary ---
Author Organization [facility] it Address [address] [place] [address] Care Team Providers Care Wastewater Design Engineer Name Role Phone Ray Martinez MD Primary [...] age to complete this topic Care Teams Wastewater Design Engineer Relationship Specialty Start Date End Date Ray Martinez MD PCP - General Internal Medicine 10/24/15
[2025-02-24 14:25] VITALS: BMI 27.4
--- NOTE | 2025-02-27 13:08 | P.CONAN_ITS ---
Documented by User: Candis Moncada NP 02/27/25 13:09 HPI - Anesthesia Eval Consult details Narrative: 39yo F for Upper Endoscopy and Colonoscopy PMFSH Active Problems Active Problems: All Active Problems Hypercalcemia (Acute) Milk-alkali syndrome (Acute) Hypomagnesemia (Acute) Acute hypokalemia (Acute) Nausea & vomiting (Acute) Polycystic kidney disease (Acute) Past Medical History Medical History Abdominal pain Hx of nausea and vomiting Polycystic kidney disease Surgical History Surgical History History of reversal of tubal ligation Hx of tubal ligation History of Hx of appendectomy Hx of cholecystectomy Social History Social History Household Members: Spouse Housing: House Are you a primary infant childcare provider to a significant other at home: No Do you presently have visiting nurse or other home services: No Patient Tobacco Use Status: Current everyday Tobacco user Tobacco use type: Cigarette Cigarettes Per Day: 6 Smoked in Last 30 Days: Yes Use of substances other than those prescribed or required for medical reasons: No Have you been hit, kicked, punched, or otherwise hurt by someone within the past year? If so, by whom?: No Are you DNR?: No Advance Directives: No Advance Directives Information Provided: Yes Advance Directives on File: No Patient : No FDLMP: 01/12/2025 : No Poor oral hygiene: No service: No Meds Allergies Allergy/AdvReac Type Severity Reaction Status Date / Time No Known Allergies (No Known Allergy Verified 02/28/25 10:41 Allergies*) Home Medications ?Medication ?Instructions ?Recorded ?Confirmed ?Last Taken ?Type diphenhydramine 25 1 tab PO BEDTIME PRN Insomni a 02/08/25 02/24/25 02/07/25 History mg-acetaminophen 500 mg tablet (Tylenol PM Extra Strength) Exam Height,Weight and Vital Signs: Height 5 ft 2 in Weight 68.039 kg Pertinent Lab Results Pertinent Lab Results: Laboratory Tests 02/09/25 02/23/25 06:19 10:32 WBC 15.0 H Hgb 15.5 Hct 43.2 Plt Count 291 Sodium 138 Potassium 4.7 D Chloride 106 Carbon Dioxide 25 BUN 15 Creatinine 1.26 Assessment and Plan Assessment Anesthesia Assessment: Chart Reviewed Documented by User: Dayana Pearson MD 02/28/25 11:17 [facility] Past Medical History Medical History Abdominal pain Hx of nausea and vomiting Polycystic kidney disease Family History Family history of problems with anesthesia: No Surgical History Surgical History History of reversal of tubal ligation Hx of tubal ligation History of Hx of appendectomy Hx of cholecystectomy History of Problems with Anesthesia: No Social History Social History Household Members: Spouse Housing: House Are you a primary infant childcare provider to a significant other at home: No Do you presently have visiting nurse or other home services: No Patient Tobacco Use Status: Current everyday Tobacco user Tobacco use type: Cigarette Cigarettes Per Day: 6 Smoked in Last 30 Days: Yes Use of substances other than those prescribed or required for medical reasons: No Have you been hit, kicked, punched, or otherwise hurt by someone within the past year? If so, by whom?: No Are you DNR?: No Advance Directives: No Advance Directives Information Provided: Yes Advance Directives on File: No Patient : No FDLMP: 01/12/2025 : No Poor oral hygiene: No service: No Meds Allergies Allergy/AdvReac Type Severity Reaction Status Date / Time No Known Allergies (No Known Allergy Verified 02/28/25 10:41 Allergies*) Home Medications ?Medication ?Instructions ?Recorded ?Confirmed ?Last Taken ?Type diphenhydramine 25 1 tab PO BEDTIME PRN Insomni a 02/08/25 02/24/25 02/07/25 History mg-acetaminophen 500 mg tablet (Tylenol PM Extra Strength) Exam Airway Mallampati Class: II TM Dist: >3cm Neck ROM: Full Heart: rrr Lungs: cta Assessment and Plan Assessment Anesthesia Assessment: Anesthesia Plan Discussed Final Anesthetic Review Family History of Problems with Anesthesia: No History of Problems with Anesthesia: No NPO: Yes ASA Class: II Final Preanesthetic Review: No Changes in Pt Med Stat, Meds/Allgs Chart Reviewed, Consent Obtained/Reviewed and Anes Risks/Benef Reviewed Patient Risk: Low Procedure Risk: Low Anesthetic Plan Anesthetic Plan: MAC: and Agree w/ Assess. and Plan Disposition: Standard PACU
[2025-02-28 10:49] LABS: UPreg QC Valid YES
[2025-02-28 10:54] VITALS: BP 131/86; PULSE 57; RESP 15; TEMP 36.9; O2SAT 97
[2025-02-28] MEDS: Lactated Ringers 1,000 ML 100 ML IVCONT (11:10)
[2025-02-28 11:11] VITALS: BMI 28.1
--- NOTE | 2025-02-28 11:37 | MHC.SHP ---
Pre-Procedural Eval Section A - 24 Hr Update-Section A only Date of Service: 02/28/25 Section B - Complete if H&P > 30 days Chief Complaint: Generalized abdominal pain,nausea and vomiting Details of Present Illness: see H&P no changes Relevant Family History (Specify if Yes): No Relevant Social History: None Present Medications: see Short Stay Collaborative assessment History of Previous Operations: No relevant previous surgery Allergies: Allergies Allergy/AdvReac Type Severity Reaction Status Date / Time No Known Allergies (No Known Allergy Verified 02/28/25 10:41 Allergies*) Review of Systems Sugical H&P ROS: Negative: Constitution, Cardiovascular, Respiratory, Neurological, Psychiatric, Hem-Onc, Allergic/Immunologic, Gastrointestinal, Genitourinary, Musculoskeletal, Integumentary, Endocrine and Eyes/Ears/Nose/Throat Exam Surgical H&P Exam: Normal: HEENT, Normal: Heart, Normal: Lungs, Normal: Extremities, Normal: Abdomen, Normal: Skin and Normal: Neurological Plan Diagnosis/Plan: Unchanged I have reviewed the history and physical and performed a pertinent physical examination on my patient. No changes have occurred unless specified. Time Spent With Patient Time: Total time managing care of this patient today ____ minutes.
[2025-02-28 12:00] VITALS: BP 113/72; PULSE 86; RESP 20; TEMP 36.1; O2SAT 93
[2025-02-28 12:12] VITALS: BP 124/83; PULSE 68; RESP 12; TEMP 36.6; O2SAT 98
--- NOTE | 2025-02-28 21:55 | OP_ITS ---
DATE OF SERVICE: 02/28/2025 SURGEON: Jonas Caldera MD INDICATIONS: Abdominal pain and nausea and vomiting. PREOPERATIVE DIAGNOSIS: POSTOPERATIVE DIAGNOSIS: PROCEDURE PERFORMED: Upper endoscopy with biopsy. ESTIMATED BLOOD LOSS: COMPLICATIONS: ANESTHESIA: Monitored anesthesia care. ASSISTANTS: SPECIMENS: DESCRIPTION OF PROCEDURE: A history and physical was performed. The risks and benefits of the procedure were explained to the patient. Informed consent was obtained. The patient was placed in the left lateral decubitus position. The Olympus video gastroscope was introduced into the esophagus, stomach, and duodenum. Examination was performed. The scope was removed. She tolerated the procedure well and was returned to the recovery area in stable condition. FINDINGS: Esophagus: The esophagus showed an irregular EG junction. There was a small hiatal hernia. Biopsies were obtained from the EG junction. There was no esophagitis. Stomach: The stomach showed no evidence of masses, ulcers, or polyps. Antral biopsies were obtained. Duodenum: The bulb and 2nd portion were normal. Biopsies were obtained from the 2nd portion. IMPRESSION: Hiatal hernia. RECOMMENDATION: Follow up the biopsy results. MD EMILY Moeller/DEVEN / [id number]
== END 2025-02-28 12:42 | disposition home or self-care (01) ==
PROVIDERS: Nurse Practitioner; Visit Provider Internal Medicine Gastroenterology
PROC: (CPT 43239; principal; 2025-02-28 12:00)
DX: R11.2 Nausea with vomiting, unspecified (principal); K22.9 Disease of esophagus, unspecified; K44.9 Diaphragmatic hernia without obstruction or gangrene; K31.89 Other diseases of stomach and duodenum; K21.9 Gastro-esophageal reflux disease without esophagitis; R10.84 Generalized abdominal pain; Z90.49 Acquired absence of other specified parts of digestive tract
CPT/HCPCS: 43239; 81025; 88305; 88342; J2003; J2704

== ENCOUNTER 2025-04-14 17:25 | Inpatient (IN) | payer OTHER, SELFPAY ==
--- OUTSIDE RECORDS SUMMARY | 2025-02-28 08:00 | XMS_ITS ---
Author Organization [facility] Address [address] [facility] [address] [place] [phone] Care Team Providers Care Prep Cook Name Role Phone NONE, NONE Primary Care Provider Juan C Caldera JrJonas Unavailable [phone] REASON FOR VISIT abdominal pain,nausea,vomiting, change in bowel movements Encounters Encounter Location Date Provider Diagnosis [facility] [address] [place] [phone] 02/28/2025 Jonas Caldera Jr Plan Of Treatment Next Appt Details Provider Name:Jonas escalante Jr, 03/08/2026 03:15:00 PM, [address] [facility], [address] [facility], [place], [address], Progress Notes * CHADWICK RAMOSDOB: [birth year] (39 yo F)Acc No.[id number]:02/28/2025 EGD and COL/MAC Patient: HARRIET SOECCA Provider: Talib Caldera MD :1985 A ge:39 Y S ex:Female Date:02/28/2025 Address:[address] [place], [place] [id number] Subjective: * Chief Complaints: * 1 . Abdominal pain,nausea,vomiting, change in bowel movements. * Medical History: Objective: * Vitals: Assessment: Plan: * Treatment: * * The named appointment provid er may or may not be the originator of this progress note, and it is not deemed complete until electronically signed by the appointment provider. Sign off status: Pending * Provider: Talib Caldera MD Date: 02/28/2025 Generated for Printi ng/Faxing/eTransmitting on: 04/14/2025 06:19 PM EDT
--- NOTE | ~2025-04-14 | CT_ITS ---
CLINICAL HISTORY: left flank pain CT abdomen and pelvis without contrast Comparison: CT/SR - CT ABDOMEN PELVIS WITH IV CONTRAST - 02/08/25 12:35 EDT Findings: There is new ill-defined consolidation of the left lung base, nonspecific. Polycystic kidneys again noted. 6 mm right renal calcification noted. Reference coronal images 47-59, there is new asymmetric perinephric stranding on the left. No obstructive uropathy bilaterally. Several hepatic cysts are also noted. Several low-density lesions are too small to characterize. The gallbladder is absent. The adrenal glands, spleen and pancreas appear unremarkable. Fecal retention throughout the colon. No small bowel obstruction, free air or abscess. The cervix appears mildly edematous and surrounded by gas, nonspecific. No acute osseous finding. The bladder is unremarkable. Impression: There is new mild stranding about the left kidney, nonspecific given absence of hydronephrosis or definite calculus. Questioned edema about the cervix with surrounding gas, nonspecific. Correlation with discomfort in this region. Fecal retention throughout the colon. New faint left basilar consolidation, possibly atelectatic. Early infiltrate not excluded. This document has been electronically signed by: Gustavo Salmno MD on 04/15/2025 09:23:13
[2025-04-14 17:34] VITALS: BP 128/79; PULSE 103; RESP 18; TEMP 38.3; O2SAT 94; BMI 29.1
--- NOTE | 2025-04-14 17:34 | ED.GENADULT ---
HPI - General Adult General Chief complaint: Abdominal Pain Stated complaint: Flank pain Time Seen by Provider: 04/14/25 20:35 Source: patient Mode of arrival: ambulatory Limitations: no limitations History of Present Illness ED Provider: Dr. Doreen Allison HPI narrative: Patient comes to the emergency room complaining of left-sided flank pain for more than 24 hours. Patient denies hematuria or dysuria, complaining of fever and chills. Patient denies vomiting or diarrhea, complaining of nausea. Denies URI symptoms or chest pain Related Data Home Medications ?Medication ?Instructions ?Recorded ?Confirmed diphenhydramine 25 1 tab PO BEDTIME PRN Insomnia 02/08/25 02/24/25 mg-acetaminophen 500 mg tablet (Tylenol PM Extra Strength) Previous Rx's ?Medication ?Instructions ?Recorded docusate sodium 100 mg capsule 100 mg PO DAILY PRN constipation 02/10/25 (Colace) #30 caps omeprazole 20 mg capsule,delayed 20 mg PO DAILY #30 caps 02/10/25 release potassium, sodium phosphates 280 1 packet PO QID #12 ea 02/10/25 mg-160 mg-250 mg oral powder packet (Phos-NaK) sennosides 8.6 mg tablet (Senna 8.6 mg PO BEDTIME PRN Constipation 02/10/25 Lax) #60 tabs Allergies Allergy/AdvReac Type Severity Reaction Status Date / Time No Known Allergies (No Known Allergy Verified 04/14/25 17:36 Allergies*) Review of Systems Review of Systems: Constitutional : No Weight loss, No Fever, No Chills, No Night Sweats, No Fatigue, No Malaise ENT/Mouth : No Hearing loss, No Ear Pain, No Nasal Congestion, No Sinus Pain, No Hoarseness, No sore throat, No Rhinorrhea, No Swallowing Difficulty Eyes: No Eye Pain, No Swelling, No Redness, No Foreign Body, No Discharge, No Vision Changes Cardiovascular : No Chest Pain, No SOB, No Dyspnea on Exertion, No Orthopnea, No Edema, No Palpitations Respiratory : No Cough, No Sputum, No Wheezing, No Smoke Exposure, No Dyspnea Gastrointestinal : No Nausea, No Vomiting, No Diarrhea, No Constipation, No abdominal Pain, No Hematochezia, No Melena Genitourinary : Denies dysuria No Urinary Frequency, No Hematuria, No Urinary Incontinence, No Urgency, complaining of left-sided Flank Pain, No Urinary Flow Changes, No Hesitancy Musculoskeletal : No joint pain, No Myalgias, No Joint Swelling Skin : No Skin Lesions, No rash Neuro : No Weakness, No Numbness, No Paresthesias, No Loss of Consciousness, No Dizziness, No Headache Psych : No Anxiety/Panic, No Depression, No SI/HI/AH/VH, No Social Issues, Heme/Lymph: No Bruising, No Bleeding,No Lymphadenopathy Endocrine : No Polyuria, No Polydipsia, No Temperature Intolerance PMFSH Past Medical History Medical History Abdominal pain Hx of nausea and vomiting Polycystic kidney disease Surgical History History of reversal of tubal ligation Hx of tubal ligation History of Hx of appendectomy Hx of cholecystectomy Social History Social History Household Members: Spouse Housing: House Are you a primary resident care manager rn to a significant other at home: No Do you presently have visiting nurse or other home services: No Alcohol intake: former Patient Tobacco Use Status: Current everyday Tobacco user Tobacco use type: Cigarette Cigarettes Per Day: 6 Smoked in Last 30 Days: Yes Use of substances other than those prescribed or required for medical reasons: No Advance Directives: No Advance Directives Information Provided: No Patient : No service: No Physical Exam ED Exam Exam: Appearance: Alert. Oriented X3. Looks uncomfortable Eyes: Pupils equal, round and reactive to light. ENT: Pharynx normal. Neck: Normal inspection. Neck supple. No lymph nodes noted. No crepitus CVS: Normal heart rate and rhythm. Pulses normal. Normal S1 and S2 Respiratory: No respiratory distress. Breath sounds normal. No Wheezing. No rales Abdomen: Soft and nontender. No rigidity. No distention. Positive CVA tenderness in the left Skin: Warm to touch and dry. Normal skin color. Normal skin turgor. Extremities: No lower extremity edema. No Lacerations. No Rash Neuro: Oriented X 3. No motor deficit. No sensory deficit. Moving all extremities. No slurred speech. CN 2 through 12 grossly intact Psych: calm, cooperative, normal affect Vital Signs: Vital Signs - 24 hr 04/14/25 17:34 04/14/25 18:55 04/14/25 19:32 Temperature 100.9 F H 102.1 F H 102.1 F H Pulse Rate 103 H 93 Respiratory Rate 18 16 Blood Pressure 128/79 113/69 Pulse Oximetry 94 96 Oxygen Delivery Method Room Air Room Air 04/14/25 20:54 Temperature 99.5 F Pulse Rate 81 Respiratory Rate 12 Blood Pressure 111/72 Pulse Oximetry 95 Oxygen Delivery Method Room Air BMI result Body Mass Index 29.1 Course Course Course Narrative: RME, this is a rapid medical exam performed by Juan Caballero please refer to primary provider for complete H&P- 39 year old female presents for evaluation of flank pain. She reports left flank pain for the last 24 hours. She reports a history of polycystic kidney disease. Plan for labs, urinalysis and a test. Medications Administered Discontinued Medications Generic Name Dose Route Start Last Admin Trade Name Freq PRN Reason Stop Dose Admin Acetaminophen 975 mg 04/14/25 17:38 04/14/25 18:26 Acetaminophen 325 Mg Tablet PO 04/14/25 17:39 975 mg ONCE ONE Administration Medical Decision Making Medical Decision Making [facility] Narrative: My interpretation of labs: Patient's white blood cell count 22.2, lactic acid 1.0, chemistry does not show any significant acute abnormality, LFTs normal, hCG negative. Urinalysis positive for UTI Patient's blood pressure is stable, no tachycardia at this time, patient already received p.o. meds for fever of 102.1 Patient has pyelonephritis. Initially we attempted to order do ofloxacin. However, due to a national shortage, system would not allow us to order levofloxacin. Go ahead and start ceftriaxone. I discussed the above-mentioned with Dr. Arevalo from the Medicine team, patient being admitted Differential Diagnosis Differential Diagnoses: The differential diagnosis associated with the presentation includes (UTI, pyelonephritis, kidney stones) Admission/Observation Consideration of admission/observation: Escalation of care including admission/observation considered Consult Healthcare Provider Management of the patient was discussed with: Hospitalist Lab Data [facility] Lab Attestation statement: I reviewed the patient's lab results. 04/14/25 18:08 04/14/25 18:08 Labs: Lab Results 04/14/25 04/14/25 Range/Units 18:07 18:08 WBC 22.2 H (4.8-10.8) X10*3/uL RBC 4.33 (4.20-5.50) X10*6/uL Hgb 14.2 (12.0-16.0) g/dl Hct 41.1 (37.0-47.0) % MCV 94.9 (80.0-98.0) fL MCH 32.8 (27.0-33.0) pg MCHC 34.5 (31.0-35.0) g/dl RDW 12.1 (11.0-16.0) % Plt Count 298 (160-400) X10*3/uL MPV 9.6 (9.4-12.3) fL Immature Gran % (Auto) 0.8 H (0.0-0.4) % Neut % (Auto) 88.2 H (45-73) % Lymph % (Auto) 4.5 L (20-40) % [place] % (Auto) 6.3 (2-11) % Eos % (Auto) 0.0 (0-4) % Baso % (Auto) 0.2 (0-2) % Lymph # (Auto) 1.0 L (1.2-4.9) X10*3/uL [place] # (Auto) 1.4 H (0.1-1.2) X10*3/uL Eos # (Auto) 0.0 (0.0-0.4) X10*3/uL Baso # (Auto) 0.0 (0.0-0.2) X10*3/uL Abs Immat Gran (auto) 0.17 H (0.00-0.03) X10*3/uL Absolute Neuts (auto) 19.6 H (2.0-8.3) x10*3/uL Absolute Nucleated RBC 0.000 (0.0-0.012) X10*3/uL Nucleated RBC % (auto) 0.0 (0.0-0.2) /100WBC Sodium 133 L (135-145) mmol/L Potassium 4.0 (3.3-5.1) mmol/L Chloride 101 (96-108) mmol/L Carbon Dioxide 24 (22-29) mmol/L Anion Gap 12 (12-20) BUN 17 H (9-16) mg/dL Creatinine 1.20 (0.5-1.4) mg/dL Estim Creat Clear Calc 59.1 Estimated GFR 50 Random Glucose 142 H (60-115) mg/dL Lactic Acid 1.0 (0.5-2.0) mmol/L Calcium 9.9 D (8.4-10.2) mg/dL Total Bilirubin 0.7 (0.0-1.0) mg/dL Direct Bilirubin 0.3 (0.0-0.5) mg/dL AST 18 (5-31) U/L ALT 14 (0-31) U/L Alkaline Phosphatase 119 H (39-117) U/L Total Protein 7.1 (6.5-8.0) g/dL Albumin 4.4 (3.5-5.0) g/dL Beta HCG, Quant < 2 mIU/mL Urine Color Yellow Urine Appearance Cloudy Urine pH 7.5 (5.0-9.0) Ur Specific [place] 1.015 (1.005-1.025) Urine Protein 100 (2+) H (Neg-Trace) mg/dL Urine Glucose (UA) Negative (Negative) mg/dL Urine Ketones 15 (Negative) mg/dL Urine Blood Small (1+) H (Negative) Urine Nitrite Negative (Negative) Ur Leukocyte Esterase Small (1+) H (Negative) Urine RBC 0-2 (0-2) /HPF Urine WBC 21-50 H (0-5) /HPF Ur Squamous Epith Cells >20 (0-2) /HPF Urine Bacteria 4+ (None Seen) Hyaline Casts 0-2 (0-2) /LPF Independent Historian Clinical information obtained from an independent historian. History obtained from or confirmed by: Spouse External Record Review External record reviewed: Inpatient record Discharged in January from the Medicine floor for nausea, vomiting and hypokalemia Tests considered The following testing was considered but not selected: Considered a CT scan. However, there is 1 of the abdomen/pelvis from January 2025, no history or suspicion for kidney stones at this time Prescription Management I considered prescription management with: Other (Morphine, but feeling better with Tylenol and ketorolac) Chronic Conditions Patient?s care impacted by: Other (Polycystic kidney disease) Critical Care Time Critical Care Time Critical Care Time: Yes Total Critical Care Time: 60 Attestation: I have personally provided critical care time. Time includes review of lab data, radiology results, discussion with consultants, and monitoring for potential decompensation. Intervention performed as documented. Discharge Plan Discharge Clinical Impression: Pyelonephritis Patient Disposition: Admitted As Inpatient Print Language: Polish
[2025-04-14 18:14] LABS: MANUAL DIFF FLAG NO
[2025-04-14 18:17] LABS: Appearance Urine Cloudy; Glucose Urine UA Negative (Negative); PH 7.5 (5.0-9.0); Specific Gravity - Urine 1.015 (1.005-1.025); UMIC TRIGGER UACC YES
--- OUTSIDE RECORDS SUMMARY | 2025-04-14 18:19 | XMS_ITS | Clinical Summary ---
Author Organization [facility] it Address [address] [place] [address] Care Team Providers Care Care Asst Name Role Phone Ray Martinez MD Primary [...] Cervical Cancer Screening: P ap Smear 12/16/2007 Depression Screening 07/20/2024 COVID-19 Vaccine ( - 2023-2 5 season) 2025 Influenza Vaccine (#1) 2025 HIB Vaccines Aged [...] age to complete this topic Care Teams Care Asst Relationship Specialty Start Date End Date Ray Martinez MD PCP - General Internal Medicine 10/24/15
--- OUTSIDE RECORDS SUMMARY | 2025-04-14 18:19 | XMS_ITS | Clinical Summary ---
Author Organization [facility] Address [address] [place] [address] Care Team Providers Care Daub Color Mixer Name Role Phone Unavailable Primary Care Provider [...]
--- OUTSIDE RECORDS SUMMARY | 2025-04-14 18:19 | XMS_ITS | Patient Health Record ---
Author Organization [facility] Address [address] [facility] [address] [place] [id number] Care Team Providers Care Software Reverse Engineer Name Role Phone NONE, NONE Primary Care Provider Juan C Caldera JrJonas Unavailable Results Component Value Reference Range Notes Ur Preg Test Reviewed date:02/28/2025 04:13:10 PM Interpretation: Performing Lab:[facility], [address] [place] [phone] Notes/Report: Urine NEGATIVE NEGATIVE This test was developed to detect early . False negative results may occur after the 5th - 7th week of when using this test method. If clinically indicated, consider a serum hCG. Pathology Reviewed date:03/08/2025 08:05:40 AM Interpretation: Performing Lab:[facility], [address] [place] [phone] Notes/Report: Reason For Referral No Information Encounters Encounter Location Date Provider Diagnosis [facility] [facility] [address] [place] [id number] 02/28/2025 Jonas Caldera Jr [facility] [address] [place] [address] [place] [phone] 02/15/2025 Jonas Caldera Jr [facility] [address] [facility] [address] [place] [phone] 03/08/2025 Jonas Caldera Jr Plan Of Treatment Next Appt Details Provider Name:Jonas escalante Jr, 03/08/2026 03:15:00 PM, [address] [facility], [address], [place], [address], Insurance Providers Payer Name Payer Address Payer Phone Subscriber Number Group Number Insured Name Patient Relationship to Insured Coverage Start Date Coverage End Date [employer] [address] [place] [id number] CHADWICK RAMOS Self - patient is the insured
[2025-04-14 18:24] LABS: Hematocrit 41.1 % (37.0-47.0); Hemoglobin 14.2 g/dl (12.0-16.0); Imm Gran Abs Auto 0.17 X10*3/uL (0.00-0.03); Imm Gran Pct Auto 0.8 % (0.0-0.4); Lymphocytes Absolute Auto 1.0 X10*3/uL (1.2-4.9); Mean Corpuscular HGB Conc 34.5 g/dl (31.0-35.0); Mean Corpuscular Hemoglobin 32.8 pg (27.0-33.0); Mean Corpuscular Volume 94.9 fL (80.0-98.0); NRBC Abs Auto 0.000 X10*3/uL (0.0-0.012); NRBC Pct Auto 0.0 /100WBC (0.0-0.2); Platelet Count 298 X10*3/uL (160-400); Red Blood Count 4.33 X10*6/uL (4.20-5.50); White Blood Count 22.2 X10*3/uL (4.8-10.8)
[2025-04-14 18:36] LABS: Alanine Aminotransferase 14 U/L (0-31); Albumin Level 4.4 g/dL (3.5-5.0); Alkaline Phosphatase 119 U/L (39-117); Anion Gap 12 (12-20); Aspartate Amino Transferase 18 U/L (5-31); Blood Urea Nitrogen 17 mg/dL (9-16); Calcium 9.9 mg/dL (8.4-10.2); Carbon Dioxide 24 mmol/L (22-29); Chloride 101 mmol/L (96-108); Creatinine Clr Calc Pharmacy 59.1; Estimated Glomerular Filt Rate 50; Potassium 4.0 mmol/L (3.3-5.1); Sodium 133 mmol/L (135-145); Total Protein 7.1 g/dL (6.5-8.0)
[2025-04-14 18:36] LABS: UACC Culture Trigger YES
[2025-04-14 18:55] VITALS: BP 113/69; PULSE 93; RESP 16; TEMP 38.9; O2SAT 96
[2025-04-14 19:32] VITALS: TEMP 38.9
--- NOTE | 2025-04-14 20:52 | PC.NURSE ---
Assume care of pt,present with left side flank pain x1 day, states that the pain radiates down her back into her legs, 04/28 pain [id number]
[2025-04-14 20:54] VITALS: BP 111/72; PULSE 81; RESP 12; TEMP 37.5; O2SAT 95
[2025-04-14] MEDS: 0.9 % Sodium Chloride 2,500 ML 999 ML IVCONT (21:25)
--- NOTE | 2025-04-14 21:29 | P.HPHOSP_ITS ---
History of Present Illness Date of Service: 04/14/25 Chief Complaint: flANK PAIN 39-year-old female with a past medical history of polycystic kidney disease presented to the hospital with a chief complaint of left flank pain. Patient mentions since yesterday she has been having left flank pain today she had associated nausea and vomiting and also fevers; denies any dysuria or hematuria. Presented to the ER for further evaluation. Patient denies any chest pain or palpitations. Reports he still feels swollen her left leg. Reports he has a history of polycystic kidney disease. Denies any prior history of kidney stones. Denies any toxic habits. Review of all other systems is negative except mentioned above ER course: Per ER team, patient had developed flank tenderness; urinalysis abnormal consistent with UTI. Lactate was within normal limits. Patient was febrile to 102 F; noted have left CVA tenderness concerning for pyelonephritis. CT scan showed polycystic kidney disease. Also noted to have small hiatal hernia.. [facility] Medical History Abdominal pain Hx of nausea and vomiting Polycystic kidney disease Surgical History History of reversal of tubal ligation Hx of tubal ligation History of Hx of appendectomy Hx of cholecystectomy Social History Household Members: Spouse Housing: House Are you a primary healthcare economics consultant to a significant other at home: No Do you presently have visiting nurse or other home services: No Alcohol intake: former Patient Tobacco Use Status: Current everyday Tobacco user Tobacco use type: Cigarette Cigarettes Per Day: 6 Smoked in Last 30 Days: Yes Use of substances other than those prescribed or required for medical reasons: No Advance Directives: No Advance Directives Information Provided: No Patient : No service: No Meds Allergies Allergy/AdvReac Type Severity Reaction Status Date / Time No Known Allergies (No Known Allergy Verified 04/14/25 17:36 Allergies*) Active Medications: Current Medications Acetaminophen (Acetaminophen 325 Mg Tablet) 650 mg PO Q6H PRN PRN Reason: Pain, Mild 1-3,fever,headache Calcium Carbonate (Calcium Carbonate 750 Mg Tab.Chew) 750 mg PO Q4H PRN PRN Reason: Heartburn Enoxaparin Sodium (Enoxaparin Sodium 40 Mg/0.4 Ml Syringe) 40 mg SUBCUT Q24H [facility] Hydromorphone HCl (Hydromorphone Hcl 0.5 Mg/0.5 Ml Syringe) 0.5 mg IVPUSH Q4H PRN; Protocol PRN Reason: Pain, Severe (Pain Scale 7-10) Sodium Chloride (Ns) 2,500 mls @ 999 mls/hr IVCONT .Q2H31M ONE Stop: 04/14/25 23:37 Last Admin: 04/14/25 21:25 Dose: 999 mls/hr Lactated Ringer's (Lr) 1,000 mls @ 100 mls/hr IVCONT .Q10H [facility] Piperacillin Sod/Tazobactam (Sod 3.375 gm/ Sodium Chloride) 50 mls @ 100 mls/hr IV Q6H [facility] Magnesium Hydroxide (Milk Of Magnesia 30 Ml Oral.Susp) 30 ml PO DAILY PRN PRN Reason: Constipation Melatonin (Melatonin 3 Mg Tablet) 6 mg PO BEDTIME PRN PRN Reason: Insomnia Senna (Sennosides 8.6 Mg Tablet) 17.2 mg PO BEDTIME [facility] Sodium Chloride (0.9 % Sodium Chloride Flush 3 Ml Syringe) 3 ml IVFLUSH QSHIFT [facility] Home Medications ?Medication ?Instructions ?Recorded ?Confirmed ?Last Taken ?Type diphenhydramine 25 1 tab PO BEDTIME PRN Insomni a 02/08/25 02/24/25 02/07/25 History mg-acetaminophen 500 mg tablet (Tylenol PM Extra Strength) Physical Exam 2 Vital Signs and Narrative: Vital Signs: Last Vital Signs Temp 99.5 F 04/14/25 20:54 Pulse 81 04/14/25 20:54 Resp 12 04/14/25 20:54 BP 111/72 04/14/25 20:54 Pulse Ox 95 04/14/25 20:54 O2 Del Method Room Air 04/14/25 20:54 BMI result Body Mass Index 29.1 Gen: Appears be in no acute distress HEENT: NCAT, Moist mucosa. Pulmonary: Vesicular breath sounds, fair air entry CVS: Normal S1-S2 Abdomen: BS+, Soft, tender in the left flank; left CVA tenderness positive. Extremities: Warm well perfused Neuro: Alert and awake. Results Labs 04/14/25 18:08 04/14/25 18:08 Labs: Laboratory Results - last 24 hr 04/14/25 04/14/25 18:07 18:08 MCV 94.9 MCH 32.8 MCHC 34.5 RDW 12.1 Plt Count 298 MPV 9.6 Immature Gran % (Auto) 0.8 H Neut % (Auto) 88.2 H Lymph % (Auto) 4.5 L [place] % (Auto) 6.3 Eos % (Auto) 0.0 Baso % (Auto) 0.2 Lymph # (Auto) 1.0 L [place] # (Auto) 1.4 H Eos # (Auto) 0.0 Baso # (Auto) 0.0 Abs Immat Gran (auto) 0.17 H Absolute Neuts (auto) 19.6 H Absolute Nucleated RBC 0.000 Nucleated RBC % (auto) 0.0 Anion Gap 12 Estim Creat Clear Calc 59.1 Estimated GFR 50 Random Glucose 142 H Lactic Acid 1.0 Calcium 9.9 D Total Bilirubin 0.7 Direct Bilirubin 0.3 AST 18 ALT 14 Alkaline Phosphatase 119 H Total Protein 7.1 Albumin 4.4 Beta HCG, Quant < 2 Urine Color Yellow Urine Appearance Cloudy Urine pH 7.5 Ur Specific [place] 1.015 Urine Protein 100 (2+) H Urine Glucose (UA) Negative Urine Ketones 15 Urine Blood Small (1+) H Urine Nitrite Negative Ur Leukocyte Esterase Small (1+) H Urine RBC 0-2 Urine WBC 21-50 H Ur Squamous Epith Cells >20 Urine Bacteria 4+ Hyaline Casts 0-2 Assessment and Plan (1) Pyelonephritis: Status: Acute Plan 39-year-old female with a past medical history of polycystic kidney disease presented to the hospital with a chief complaint of left flank pain. Admitted for following Acute pyelonephritis: Continue Zosyn Follow-up cultures Pain control Gentle IV fluids Hiatal hernia: Patient denies any dysphagia or odynophagia. I recommended GI follow-up. PPI. DVT prophylaxis: Lovenox Code status: Full code Quality Stroke Does the patient have a stroke diagnosis?: No VTE Prior VTE?: No VTE Risk Level:: Medical - moderate - high VTE Device Contraindication: Treatment Not Indicated VTE Drug Contraindication: N/A - Med Ordered
--- NOTE | 2025-04-14 21:43 | PHA.MEDREC ---
Addendum entered by Carolee Kasper RPh 04/14/25 21:49: MED REC REVIEWED BY [facility] Original Note: Pharmacy Consult ? Medication Reconciliation Pharmacy has completed the medication reconciliation. Spoke with pt and she confirmed her medications. Pt taking OTC medications only at this time.
[2025-04-14] MEDS: Lactated Ringers 1,000 ML 100 ML IVCONT (22:15)
[2025-04-14 22:57] VITALS: BP 114/65; PULSE 82; RESP 11; O2SAT 96
[2025-04-15] VITALS (14 sets, daily range): BP systolic 100–118; BP diastolic 52–71; PULSE 72–84; RESP 14–22; TEMP 37.1–38.9; O2SAT 92–98
[2025-04-15 02:30] LABS: Hematocrit 33.5 % (37.0-47.0); Hemoglobin 11.6 g/dl (12.0-16.0); Imm Gran Abs Auto 0.16 X10*3/uL (0.00-0.03); Imm Gran Pct Auto 0.8 % (0.0-0.4); Lymphocytes Absolute Auto 1.1 X10*3/uL (1.2-4.9); Mean Corpuscular HGB Conc 34.6 g/dl (31.0-35.0); Mean Corpuscular Hemoglobin 32.9 pg (27.0-33.0); Mean Corpuscular Volume 94.9 fL (80.0-98.0); NRBC Abs Auto 0.000 X10*3/uL (0.0-0.012); NRBC Pct Auto 0.0 /100WBC (0.0-0.2); Platelet Count 198 X10*3/uL (160-400); Red Blood Count 3.53 X10*6/uL (4.20-5.50); SCAN SMEAR FLAG 1; White Blood Count 19.1 X10*3/uL (4.8-10.8)
[2025-04-15 02:34] LABS: MANUAL DIFF FLAG SCAN
[2025-04-15 02:58] LABS: Alanine Aminotransferase 8 U/L (0-31); Albumin Level 3.4 g/dL (3.5-5.0); Alkaline Phosphatase 90 U/L (39-117); Anion Gap 12 (12-20); Aspartate Amino Transferase 15 U/L (5-31); Blood Urea Nitrogen 15 mg/dL (9-16); Calcium 8.4 mg/dL (8.4-10.2); Carbon Dioxide 23 mmol/L (22-29); Chloride 107 mmol/L (96-108); Creatinine Clr Calc Pharmacy 60.6; Estimated Glomerular Filt Rate 52; Potassium 3.5 mmol/L (3.3-5.1); Sodium 138 mmol/L (135-145); Total Protein 5.5 g/dL (6.5-8.0)
[2025-04-15] MEDS: Lactated Ringers 1,000 ML 100 ML IVCONT ×2 (07:12→19:28)
[2025-04-15] MEDS: oxyCODONE HCl Immed Release 5 MG TABLET 10 MG PO (09:40)
--- NOTE | 2025-04-15 10:12 | HO.NURTONUR ---
Arrivel to ED yesterday with severe left flank pain, Hx polycystic Kidneys. (Has renal f/u in April). Temp 102. WBC was 22 down this am to 19. Lactic has been <2 consistently. Pain was diff to control overnight. New PRN meds (morphine and oxy) are effective. Pt is ambulatory, axox3. independent ADLs. CT unremarkable. NPO for now. Abx hanging currently and LR.
--- NOTE | 2025-04-15 14:30 | P.PNIM_ITS ---
Subjective Subjective Date of Service: 04/15/25 Interval History: No acute issues overnight. Pain control now adequate Review of Systems Denies chest pain Denies shortness of breath Denies nausea vomiting diarrhea Denies fever chills Physical Exam 2 Vital Signs: Vital Signs: Last Vital Signs Temp 99.2 F 04/15/25 09:40 Pulse 83 04/15/25 09:40 Resp 18 04/15/25 09:40 BP 108/64 04/15/25 09:40 Pulse Ox 96 04/15/25 08:57 O2 Del Method Room Air 04/15/25 08:57 BMI result Body Mass Index 29.1 Const: Other: Awake alert no acute distress Resp: Other: Clear to auscultation bilaterally no rales rhonchi or wheezes Cardio: Other: No S4; positive S1-S2; no S3 murmurs rubs or gallops GI: Other: Soft nontender nondistended normoactive bowel sounds Back/Spine/Pelvis: Other: Left CVA tenderness Extrem: Other: No acute issues overall Objective Data Active Medications Acetaminophen (Acetaminophen 325 Mg Tablet) 650 mg PO Q6H PRN PRN Reason: Pain, Mild 1-3,fever,headache Last Admin: 04/15/25 07:12 Dose: 650 mg Documented By: MEDARDO Calcium Carbonate (Calcium Carbonate 750 Mg Tab.Chew) 750 mg PO Q4H PRN PRN Reason: Heartburn Last Admin: 04/15/25 02:42 Dose: 750 mg Documented By: KENDALL Enoxaparin Sodium (Enoxaparin Sodium 40 Mg/0.4 Ml Syringe) 40 mg SUBCUT Q24H [facility] Last Admin: 04/14/25 22:11 Dose: 40 mg Documented By: KENDALL Lactated Ringer's (Lr) 1,000 mls @ 100 mls/hr IVCONT .Q10H [facility] Last Admin: 04/15/25 07:12 Dose: 100 mls/hr Documented By: MEDARDO Piperacillin Sod/Tazobactam (Sod 3.375 gm/ Sodium Chloride) 50 mls @ 100 mls/hr IV Q6H [facility] Last Infusion: 04/15/25 10:50 Dose: Infused Documented By: CHECO Magnesium Hydroxide (Milk Of Magnesia 30 Ml Oral.Susp) 30 ml PO DAILY PRN PRN Reason: Constipation Melatonin (Melatonin 3 Mg Tablet) 6 mg PO BEDTIME PRN PRN Reason: Insomnia Morphine Sulfate (Morphine Sulfate 4 Mg/Ml Cartridge) 4 mg IVPUSH Q4H PRN; Protocol PRN Reason: Pain, Severe (Pain Scale 7-10) Last Admin: 04/15/25 08:57 Dose: 4 mg Documented By: MEDARDO Oxycodone HCl (Oxycodone Hcl Immed Release 5 Mg Tablet) 10 mg PO Q4H PRN PRN Reason: Pain, Moderate(Pain Scale 4-6) Last Admin: 04/15/25 09:40 Dose: 10 mg Documented By: MEDARDO Pantoprazole Sodium (Pantoprazole Sodium 40 Mg/10 Ml Vial) 40 mg IVPUSH DAILY@0630 [facility] Last Admin: 04/15/25 06:47 Dose: 40 mg Documented By: BRANDON-MATTE Senna (Sennosides 8.6 Mg Tablet) 17.2 mg PO BEDTIME [facility] Sodium Chloride (0.9 % Sodium Chloride Flush 3 Ml Syringe) 3 ml IVFLUSH QSHIFT [facility] Last Admin: 04/15/25 07:13 Dose: Not Given Documented By: MEDARDO Non-Admin Reason: IV Running Labs 04/15/25 02:25 04/15/25 02:25 Labs: Laboratory Results - last 24 hr 04/14/25 04/14/25 04/15/25 18:07 18:08 02:25 MCV 94.9 94.9 MCH 32.8 32.9 MCHC 34.5 34.6 RDW 12.1 12.3 Plt Count 298 198 D MPV 9.6 9.3 L Immature Gran % (Auto) 0.8 H 0.8 H Neut % (Auto) 88.2 H 84.5 H Lymph % (Auto) 4.5 L 5.5 L [place] % (Auto) 6.3 8.9 Eos % (Auto) 0.0 0.1 Baso % (Auto) 0.2 0.2 Lymph # (Auto) 1.0 L 1.1 L [place] # (Auto) 1.4 H 1.7 H Eos # (Auto) 0.0 0.0 Baso # (Auto) 0.0 0.0 Abs Immat Gran (auto) 0.17 H 0.16 H Absolute Neuts (auto) 19.6 H 16.2 H Absolute Nucleated RBC 0.000 0.000 Nucleated RBC % (auto) 0.0 0.0 Smear Tech's Comments VERIFIED Anion Gap 12 12 Estim Creat Clear Calc 59.1 60.6 Estimated GFR 50 52 Random Glucose 142 H 146 H Lactic Acid 1.0 Calcium 9.9 D 8.4 D Total Bilirubin 0.7 0.4 Direct Bilirubin 0.3 AST 18 15 ALT 14 8 Alkaline Phosphatase 119 H 90 Total Protein 7.1 5.5 L Albumin 4.4 3.4 L Beta HCG, Quant < 2 Urine Color Yellow Urine Appearance Cloudy Urine pH 7.5 Ur Specific [place] 1.015 Urine Protein 100 (2+) H Urine Glucose (UA) Negative Urine Ketones 15 Urine Blood Small (1+) H Urine Nitrite Negative Ur Leukocyte Esterase Small (1+) H Urine RBC 0-2 Urine WBC 21-50 H Ur Squamous Epith Cells >20 Urine Bacteria 4+ Hyaline Casts 0-2 Microbiology Microbiology Results: Microbiology 04/14/25 Unknown Urine Culture - Preliminary Urine clean catch - Clean Catch Midstream Culture in progress. Assessment and Plan (1) Pyelonephritis: Status: Acute Plan 39-year-old female with a past medical history of polycystic kidney disease presented to the hospital with a chief complaint of left flank pain. Admitted for following 1.Acute pyelonephritis(confirmed by CTA) -Zosyn(2) -cultures pending -Pain control/Gentle IV fluids Lovenox Full code Quality Stroke Does the patient have a stroke diagnosis?: No VTE Prior VTE?: No VTE Risk Level:: Medical - moderate - high VTE Device Contraindication: Treatment Not Indicated VTE Drug Contraindication: N/A - Med Ordered
--- NOTE | 2025-04-15 15:53 | MHC.CM.PN ---
CM ATTEMPTED TO MEET WITH PT, SPECIAL SERVICE OFFICER IN PROGRESS. CM TO RETURN
[2025-04-15] MEDS: 0.9 % Sodium Chloride Flush 3 ML SYRINGE IVFLUSH (16:36)
[2025-04-16] MEDS: oxyCODONE HCl Immed Release 5 MG TABLET 10 MG PO ×3 (00:20→16:10)
[2025-04-16 03:25] VITALS: BP 124/68; PULSE 84; RESP 20; TEMP 36.8; O2SAT 96
[2025-04-16] MEDS: Lactated Ringers 1,000 ML 100 ML IVCONT (05:36)
[2025-04-16 07:45] VITALS: BP 115/67; PULSE 77; RESP 16; TEMP 36.9; O2SAT 96
[2025-04-16 08:45] LABS: Hematocrit 35.3 % (37.0-47.0); Hemoglobin 11.8 g/dl (12.0-16.0); Imm Gran Abs Auto 0.27 X10*3/uL (0.00-0.03); Imm Gran Pct Auto 1.3 % (0.0-0.4); Lymphocytes Absolute Auto 1.5 X10*3/uL (1.2-4.9); MANUAL DIFF FLAG SCAN; Mean Corpuscular HGB Conc 33.4 g/dl (31.0-35.0); Mean Corpuscular Hemoglobin 32.3 pg (27.0-33.0); Mean Corpuscular Volume 96.7 fL (80.0-98.0); NRBC Abs Auto 0.000 X10*3/uL (0.0-0.012); NRBC Pct Auto 0.0 /100WBC (0.0-0.2); Platelet Count 191 X10*3/uL (160-400); Red Blood Count 3.65 X10*6/uL (4.20-5.50); SCAN SMEAR FLAG 1; White Blood Count 20.8 X10*3/uL (4.8-10.8)
--- NOTE | 2025-04-16 12:04 | HO.PM.IMPN ---
Subjective Subjective Date of Service: 04/16/25 Interval History: T-max remains elevated at 102. States feels no different than admission Review of Systems Denies chest pain Denies shortness of breath Denies nausea vomiting diarrhea Admits fever chills Physical Exam Vital Signs: Vital Signs: Last Vital Signs Temp 98.4 F 04/16/25 07:45 Pulse 77 04/16/25 07:45 Resp 16 04/16/25 07:45 BP 115/67 04/16/25 07:45 Pulse Ox 96 04/16/25 07:45 O2 Del Method Room Air 04/16/25 07:45 BMI result Body Mass Index 30.0 Const: Other: Awake alert ill-appearing Resp: Other: Clear to auscultation bilaterally no rales rhonchi or wheezes Cardio: Other: No S4; positive S1-S2; no S3 murmurs rubs or gallops GI: Other: Soft nontender nondistended normoactive bowel sounds Back/Spine/Pelvis: Other: Left CVA tenderness Extrem: Other: No acute issues overall Objective Data Active Medications Acetaminophen (Acetaminophen 325 Mg Tablet) 650 mg PO Q6H PRN PRN Reason: Pain, Mild 1-3,fever,headache Last Admin: 04/15/25 17:40 Dose: 325 mg Documented By: MARIANO Calcium Carbonate (Calcium Carbonate 750 Mg Tab.Chew) 750 mg PO Q4H PRN PRN Reason: Heartburn Last Admin: 04/16/25 00:20 Dose: 750 mg Documented By: MIKE Enoxaparin Sodium (Enoxaparin Sodium 40 Mg/0.4 Ml Syringe) 40 mg SUBCUT Q24H [facility] Last Admin: 04/15/25 21:46 Dose: 40 mg Documented By: MIKE Lactated Ringer's (Lr) 1,000 mls @ 100 mls/hr IVCONT .Q10H [facility] Last Infusion: 04/16/25 11:34 Dose: 0 mls/hr Documented By: GERALD Piperacillin Sod/Tazobactam (Sod 3.375 gm/ Sodium Chloride) 50 mls @ 100 mls/hr IV Q6H [facility] Last Infusion: 04/16/25 10:25 Dose: Infused Documented By: GERALD Magnesium Hydroxide (Milk Of Magnesia 30 Ml Oral.Susp) 30 ml PO DAILY PRN PRN Reason: Constipation Melatonin (Melatonin 3 Mg Tablet) 6 mg PO BEDTIME PRN PRN Reason: Insomnia Morphine Sulfate (Morphine Sulfate 4 Mg/Ml Cartridge) 4 mg IVPUSH Q4H PRN; Protocol PRN Reason: Pain, Severe (Pain Scale 7-10) Last Admin: 04/16/25 09:47 Dose: 4 mg Documented By: GERALD Oxycodone HCl (Oxycodone Hcl Immed Release 5 Mg Tablet) 10 mg PO Q4H PRN PRN Reason: Pain, Moderate(Pain Scale 4-6) Last Admin: 04/16/25 10:28 Dose: 10 mg Documented By: GERALD Pantoprazole Sodium (Pantoprazole Sodium 40 Mg/10 Ml Vial) 40 mg IVPUSH DAILY@0630 [facility] Last Admin: 04/16/25 05:32 Dose: 40 mg Documented By: MIKE Senna (Sennosides 8.6 Mg Tablet) 17.2 mg PO BEDTIME [facility] Last Admin: 04/15/25 21:45 Dose: 17.2 mg Documented By: MIKE Sodium Chloride (0.9 % Sodium Chloride Flush 3 Ml Syringe) 3 ml IVFLUSH QSHIFT [facility] Last Admin: 04/16/25 07:33 Dose: Not Given Documented By: GERALD Non-Admin Reason: IV Running Labs 04/16/25 08:27 04/15/25 02:25 Labs: Laboratory Results - last 24 hr 04/16/25 08:27 MCV 96.7 MCH 32.3 MCHC 33.4 RDW 12.3 Plt Count 191 MPV 10.2 Immature Gran % (Auto) 1.3 H Neut % (Auto) 83.3 H Lymph % (Auto) 7.3 L [place] % (Auto) 7.8 Eos % (Auto) 0.1 Baso % (Auto) 0.2 Lymph # (Auto) 1.5 [place] # (Auto) 1.6 H Eos # (Auto) 0.0 Baso # (Auto) 0.1 Abs Immat Gran (auto) 0.27 H Absolute Neuts (auto) 17.3 H Absolute Nucleated RBC 0.000 Nucleated RBC % (auto) 0.0 Smear Tech's Comments VERIFIED Microbiology Microbiology Results: Microbiology 04/14/25 Unknown Urine Culture - Preliminary Urine clean catch - Clean Catch Midstream Gram negative sam 04/14/25 19:01 Blood Culture - Preliminary Blood - Venous No growth after 24 hours. 04/14/25 18:08 Blood Culture - Preliminary Blood - Venous No growth after 24 hours. Assessment and Plan (1) Pyelonephritis: Status: Acute Plan 39-year-old female with a past medical history of polycystic kidney disease presented to the hospital with a chief complaint of left flank pain. Admitted for following 1.Acute pyelonephritis(confirmed by CT) -Zosyn(3) -cultures pending ... Preliminary urine Gram-negative rods. Await formal ID -Pain control/Gentle IV fluids Lovenox Full code Quality Stroke Does the patient have a stroke diagnosis?: No VTE Prior VTE?: No VTE Risk Level:: Medical - moderate - high VTE Device Contraindication: Treatment Not Indicated VTE Drug Contraindication: N/A - Med Ordered
[2025-04-16 14:52] VITALS: BP 124/78; PULSE 72; RESP 16; TEMP 36.8; O2SAT 95
--- NOTE | 2025-04-16 16:20 | MHC.CM.PN ---
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
--- NOTE | 2025-04-16 16:40 | PM.DS ---
DS: Providers Provider Date of Service: 04/16/25 Date of admission: 04/14/25 21:27 Date of discharge: 04/16/25 Primary care physician: None Physician DS: Diagnosis Discharge Diagnosis (1) Pyelonephritis: Status: Acute DS: Summary Hospital Course Hospital Course: 31-year-old female with a past medical history of polycystic kidney disease presents with a chief complaint of fevers and left flank pain. She states left flank pain has been worsening over several days prior to admission and day of admission was accompanied by nausea and vomiting. In the emergency room she was found to have a fever while CTA demonstrated changes with acute pyelonephritis. She was started on Zosyn. T-max over the next 48 hours was 102. Initial urine culture Gram-negative sam blood cultures negative times 24 hours. Called to patient's room; patient states due to work commitments she wanted to sign out AMA. Spent greater than 30 minutes discussing risks of signing out AMA including severe sepsis which could result in ; also explained that she has been using morphine every 4 hours and Oxy every 4 hours; essentially was taking pain meds every 2 hours. She goes home this will only be oral and will only be every 4 hours. She is able to repeat to me the risks up to and including sepsis fever and . Despite these warning she still wishes to sign out AMA. She will give be given a script for Oxy 10 mg number and Augmentin 875 b.i.d. for 10 days. She is strongly advised to come back for any fevers shaking chills persistent vomiting. She is again adamant about leaving despite warnings. She will sign AMA Time Attestation Discharge Coordination Time (in mins): 35 Quality: Safe Use of Opioids Does Pt have an Active Cancer Diagnosis on the Problem List?: No Quality: Stroke Does the patient have a stroke diagnosis?: No Physical Exam Vital Signs: Vital Signs: Last Vital Signs Temp 98.3 F 04/16/25 14:52 Pulse 72 04/16/25 14:52 Resp 16 04/16/25 14:52 BP 124/78 04/16/25 14:52 Pulse Ox 95 04/16/25 14:52 O2 Del Method Room Air 04/16/25 14:52 BMI result Body Mass Index 30.0 DS: Data Data Completed and Pending Labs on day of discharge: Laboratory Results - last 24 hr 04/16/25 08:27 WBC 20.8 H RBC 3.65 L Hgb 11.8 L Hct 35.3 L MCV 96.7 MCH 32.3 MCHC 33.4 RDW 12.3 Plt Count 191 MPV 10.2 Immature Gran % (Auto) 1.3 H Neut % (Auto) 83.3 H Lymph % (Auto) 7.3 L [place] % (Auto) 7.8 Eos % (Auto) 0.1 Baso % (Auto) 0.2 Lymph # (Auto) 1.5 [place] # (Auto) 1.6 H Eos # (Auto) 0.0 Baso # (Auto) 0.1 Abs Immat Gran (auto) 0.27 H Absolute Neuts (auto) 17.3 H Absolute Nucleated RBC 0.000 Nucleated RBC % (auto) 0.0 Smear Tech's Comments VERIFIED Preliminary micro results at discharge 04/14/25 Unknown Urine Culture - Preliminary Urine clean catch - Clean Catch Midstream Gram negative sam 04/14/25 19:01 Blood Culture - Preliminary Blood - Venous No growth after 24 hours. 04/14/25 18:08 Blood Culture - Preliminary Blood - Venous No growth after 24 hours. Discharge Plan Discharge Anticipated Discharge Date/Time: 04/16/25 16:33 Patient Disposition: Left Against Medical Advice Discharge Diagnosis: Pyelonephritis Referrals: Physician,None [Primary Care Provider, Medical] - 1 Week Discharge Medications: New oxycodone 10 mg tablet 10 mg PO Q4H PRN (Reason: pain) Qty: 20 0RF Rx Instructions: Partial Fill upon patient request. amoxicillin-pot clavulanate 875-125 mg tablet 1 tab PO BID Qty: 20 0RF Continued diphenhydramine-acetaminophen [Tylenol PM Extra Strength] 25-500 mg Tablet 1 tab PO BEDTIME PRN (Reason: Insomnia) sennosides [Senna Lax] 8.6 mg Tablet 8.6 mg PO BEDTIME PRN (Reason: Constipation) Qty: 60 0RF docusate sodium [Colace] 100 mg capsule 100 mg PO DAILY PRN (Reason: constipation) Qty: 30 0RF ibuprofen 200 mg Tablet 400 mg PO Q6H PRN (Reason: Pain/Sleep) omeprazole 20 mg capsule,delayed release(DR/EC) 20 mg PO DAILY@0630 Discharge Orders: Discharge Order (Routine); Ordered 04/16/25 Ordered By: Nguyễn Haley Diet: Advance to usual diet Activity on Discharge: As tolerated Print Language: [place] Care Plan Goals: AMA Health Concerns: AMA Plan of Treatment: AMA Assessment: AMA
== END 2025-04-16 16:55 | disposition left against medical advice (07) | DRG 463 ==
LOC: HO.ED 21:21 → HO.EDOVER 21:34 → HO.IMC 04-15 10:04 → HO.EDOVER 04-15 10:20 → HO.S3 04-15 14:17
PROVIDERS: Physician Assistant; Admitting Provider Hospitalist; Emergency Provider Emergency Medicine; Visit Provider Hospitalist
DX: N10 Acute pyelonephritis (principal); F17.210 Nicotine dependence, cigarettes, uncomplicated; Q61.3 Polycystic kidney, unspecified; Z71.6 Tobacco abuse counseling; Z79.899 Other long term (current) drug therapy
CPT/HCPCS: 36415; 74176; 80048; 80053; 80076; 81001; 83605; 84702; 85025; 87040; 87086; 87088; 87186; 99285; J0696; J1171; J1308; J1650; J1885; J2270; J2470; J2543; J7120

== ENCOUNTER 2025-04-14 21:27 | Outpatient (BNV) | payer OTHER, SELFPAY | END 2025-04-15 08:35 | PROVIDERS: Admitting Provider Hospitalist; Emergency Provider Emergency Medicine; Visit Provider Radiology Vascular & Interventional Radiology | DX: R19.5 Other fecal abnormalities (principal); R91.8 Other nonspecific abnormal finding of lung field | CPT/HCPCS: 74176 ==

== ENCOUNTER → 2025-04-14 21:27 | Outpatient (BNV) | payer OTHER, SELFPAY | PROVIDERS: Admitting Provider Hospitalist; Emergency Provider Emergency Medicine; Visit Provider Hospitalist | DX: N12 Tubulo-interstitial nephritis, not specified as acute or chronic (principal) | CPT/HCPCS: 99223; 99232; 99239; 99499 ==

== ENCOUNTER 2025-04-18 20:19 | Inpatient (IN) | payer OTHER, SELFPAY ==
--- NOTE | ~2025-04-18 | XR_ITS ---
CLINICAL HISTORY: Left flank with deep insp,fever 1 view chest x-ray Comparison: None provided Findings: Mild bibasilar atelectasis and/or pneumonitis, left worse than right. No pneumothorax or pleural effusion in this one view study. Cardiac silhouette accentuated by AP magnification. Imaged osseous structures are unremarkable for technique. IMPRESSION: Mild bibasilar atelectasis/pneumonitis. Recommend attention on follow-up to ensure resolution. This document has been electronically signed by: Josef España MD on 04/19/2025 03:14:48
--- NOTE | ~2025-04-18 | CT_ITS ---
CLINICAL HISTORY: L pyelonepritis, ? L perinepric abscess CT abdomen and pelvis with contrast Comparison: CT of the abdomen from 04/15/2025. Findings: Small bilateral pleural effusions with partially imaged bibasilar atelectasis/consolidation, left worse than right. Multiple liver lesions are nonspecific by CT and likely within the spectrum of the polycystic kidney disease given appearance of both kidneys. Fluid and low-density noted of the upper pole of the left kidney. This can be seen with reported pyelonephritis. No definite drainable or well-defined abscess by CT. Infected cysts could be considered given stranding adjacent to upper pole of the left kidney. No hydronephrosis. Right upper cysts of the right kidney measures 4.7 cm. Cystic lesions of the kidneys are too numerous to accurately count. Adrenal glands are partly obscured and otherwise unremarkable. Gallbladder is surgically absent. Pancreas within normal limits for technique. Spleen approaches the upper limits of normal. Small mesenteric and periaortic lymph nodes are nonspecific and may be reactive. No small bowel obstruction. Severe stool burden present, including the cecum. The appendix is not definitively seen and likely surgically absent given procedure changes in the right lower quadrant. Uterus is retroverted and mildly retroflexed. No adnexal soft tissue mass by CT. Mild free fluid in the pelvis is nonspecific may be reactive. Findings of the ruptured ovarian cysts or manifestations of the pelvic inflammatory disease not excluded. Mild wall thickening of the urinary bladder is nonspecific by CT. Redemonstration of the mixed density of the cervix. This remains nonspecific by CT. Mild osteoarthritis of the hips include subchondral cystic changes. Schmorl's nodes are multifocal in the imaged spine. IMPRESSION: 1. Mixed density in the fluid of the upper pole of the left kidney is nonspecific and can be seen with reported pyelonephritis. 2. No definite well-defined drainable abscess by CT in the setting of the multiple renal cysts. Attention on follow-up may be informative, given the degree of the renal cysts. 3. Wall thickening of the urinary bladder. This document has been electronically signed by: Josef España MD on 04/19/2025 20:33:43
[2025-04-18 20:22] VITALS: BP 141/71; PULSE 106; RESP 16; TEMP 37.6; O2SAT 99; BMI 29.5
--- NOTE | 2025-04-18 20:36 | PC.NURSE ---
swiss machinist/MD Walden made aware of sepsis risk. per MD verbal order, blood cultures & lactic ordered in addition to other labs.
--- OUTSIDE RECORDS SUMMARY | 2025-04-18 20:56 | XMS_ITS | Clinical Summary ---
Author Organization [facility] Address [address] [place] [address] Care Team Providers Care Centrifugal Separator Name Role Phone Unavailable Primary Care Provider [...]
--- OUTSIDE RECORDS SUMMARY | 2025-04-18 20:56 | XMS_ITS | Clinical Summary ---
Author Organization [facility] it Address [address] [place] [address] Care Team Providers Care Pipe Stem Sawyer Name Role Phone Ray Martinez MD Primary [...] Cervical Cancer Screening: P ap Smear 12/16/2007 HPV Vaccines (1 - 3-dose SCD M series) 2013 Depression Screening 07/20/2024 COVID-19 Vaccine ( - 2023-2 5 season) 2025 Influenza Vaccine (#1) 2025 RSV Immunization Adult Patie nts (1 - 1-dose 75+ series) 2061 HIB Vaccines Aged Out No longer eligi [...] age to complete this topic Care Teams Pipe Stem Sawyer Relationship Specialty Start Date End Date Ray Martinez MD PCP - General Internal Medicine 10/24/15
[2025-04-18 21:16] LABS: MANUAL DIFF FLAG NO
[2025-04-18 21:28] LABS: Hematocrit 38.1 % (37.0-47.0); Hemoglobin 12.7 g/dl (12.0-16.0); Imm Gran Abs Auto 0.07 X10*3/uL (0.00-0.03); Imm Gran Pct Auto 0.5 % (0.0-0.4); Lymphocytes Absolute Auto 1.0 X10*3/uL (1.2-4.9); Mean Corpuscular HGB Conc 33.3 g/dl (31.0-35.0); Mean Corpuscular Hemoglobin 32.2 pg (27.0-33.0); Mean Corpuscular Volume 96.5 fL (80.0-98.0); NRBC Abs Auto 0.000 X10*3/uL (0.0-0.012); NRBC Pct Auto 0.0 /100WBC (0.0-0.2); Platelet Count 350 X10*3/uL (160-400); Red Blood Count 3.95 X10*6/uL (4.20-5.50); White Blood Count 13.4 X10*3/uL (4.8-10.8)
[2025-04-18 21:39] LABS: Alanine Aminotransferase 28 U/L (0-31); Albumin Level 3.9 g/dL (3.5-5.0); Alkaline Phosphatase 230 U/L (39-117); Anion Gap 14 (12-20); Aspartate Amino Transferase 36 U/L (5-31); Blood Urea Nitrogen 13 mg/dL (9-16); Calcium 9.8 mg/dL (8.4-10.2); Carbon Dioxide 23 mmol/L (22-29); Chloride 104 mmol/L (96-108); Creatinine Clr Calc Pharmacy 70.0; Estimated Glomerular Filt Rate > 60; Lipase 19 U/L (8-78); Magnesium 1.8 mg/dL (1.6-2.6); Potassium 4.0 mmol/L (3.3-5.1); Sodium 137 mmol/L (135-145); Total Protein 6.8 g/dL (6.5-8.0)
[2025-04-18 22:12] VITALS: TEMP 38.1
--- NOTE | 2025-04-18 22:14 | PC.NURSE ---
pt reports increased R sided back pain, she feels it is a larger surface then when she was here a few days ago. mild fever upon assessment (temp 100.6), pt last took Tylenol at 2 pm. confirms compliance with antibiotics, has not yet taken second dose today. family at bedside.
[2025-04-18 22:46] LABS: Appearance Urine Cloudy; Glucose Urine UA Negative (Negative); PH 8.0 (5.0-9.0); Specific Gravity - Urine 1.015 (1.005-1.025); UMIC TRIGGER UACC YES
[2025-04-18 23:09] VITALS: BP 133/73; PULSE 98; RESP 16; TEMP 39.3; O2SAT 98
--- NOTE | 2025-04-18 23:17 | PC.NURSE ---
pt temp went up to 102.7, documented, Dr Allison in the ED aware, verbal order for Acetaminophen entered per provider request. pt medicated per MAR
[2025-04-18 23:20] LABS: UACC Culture Trigger YES
[2025-04-19] VITALS (10 sets, daily range): BP systolic 96–128; BP diastolic 59–81; PULSE 61–99; RESP 13–24; TEMP 36.6–38.2; O2SAT 96–100; BMI 29.8
--- NOTE | 2025-04-19 00:38 | ED_ITS ---
HPI - General Adult General Chief complaint: Back Pain/Injury Stated complaint: Kidney infection not getting better, left AMA 04/16 Time Seen by Provider: 04/18/25 23:45 Source: patient, family, RN notes reviewed and old records reviewed Mode of arrival: ambulatory Limitations: no limitations History of Present Illness ED Provider: Federico HPI narrative: 39-year-old female with a past medical history significant for polycystic kidney disease presenting for evaluation of bilateral flank pain. The patient is admitted to this hospital on 04/14/2025 pain She left AMA 2 days later on 04/08/2025. She is admitted for pyelonephritis of the left flank after having a CT scan, urinalysis and labs. She met sepsis criteria and was treated as such. She was on Zosyn while in the hospital and ultimately left AMA. She was then transitioned to oral Augmentin. She has taken 2-1/2 days' worth of Augmentin reports her symptoms have worsened. She is now developing right flank pain On arrival to the ED she had a temperature of 99.7. Denies any vaginal bleeding or discharge. Denies any new complaints or concerns, no coughing or shortness of breath Related Data Home Medications ?Medication ?Instructions ?Recorded ?Confirmed diphenhydramine 25 1 tab PO BEDTIME PRN Insomni a 02/08/25 04/14/25 mg-acetaminophen 500 mg tablet (Tylenol PM Extra Strength) ibuprofen 200 mg tablet 400 mg PO Q6H PRN Pain/Sleep 04/14/25 04/14/25 omeprazole 20 mg capsule,delayed 20 mg PO DAILY@0630 0 04/14/25 04/14/25 release Previous Rx's ?Medication ?Instructions ?Recorded docusate sodium 100 mg capsule 100 mg PO DAILY PRN con stipation 02/10/25 (Colace) #30 caps sennosides 8.6 mg tablet (Senna 8.6 mg PO BEDTIME PRN Constipation 02/10/25 Lax) #60 tabs amoxicillin 875 mg-potassium 1 tab PO BID #20 tabs clavulanate 125 mg tablet oxycodone 10 mg tablet 10 mg PO Q4H PRN pain #20 ta bs 04/16/25 Allergies Allergy/AdvReac Type Severity Reaction Status Date / Time No Known Allergies (No Known Allergy Verified 04/18/25 20:26 Allergies*) Review of Systems 2 Constitutional: Constitutional: Reports body ache(s), Reports chills, Reports fatigue, Reports fever(s), Reports headache(s) and Reports malaise Eyes: Eyes: Denies blurry vision ENT: Denies vertigo, Denies dizziness and Reports headache(s) Cardiovascular: Cardiovascular: Denies chest pain and Denies dyspnea on exertion Respiratory: Respiratory: Denies cough and Denies dyspnea on exertion Gastrointestinal: Gastrointestinal: Reports abdominal pain, Reports nausea and Denies vomiting Genitourinary: Genitourinary: Reports dysuria and Reports flank pain Musculoskeletal: Musculoskeletal: Reports back pain Integumentary/Breasts: Skin/Breast: Denies rash Neurologic: Denies vertigo, Denies dizziness and Reports headache(s) Psychiatric: Psychiatric: Denies anxiety Endocrine: Endocrine: Reports fatigue PMFSH Past Medical History Medical History Abdominal pain Hx of nausea and vomiting Polycystic kidney disease Surgical History History of reversal of tubal ligation Hx of tubal ligation History of Hx of appendectomy Hx of cholecystectomy Social History Social History Household Members: Significant Other Housing: House Are you a primary patient care nursing assistant to a significant other at home: No Do you presently have visiting nurse or other home services: No Alcohol intake: former Patient Tobacco Use Status: Current everyday Tobacco user Tobacco use type: Cigarette Cigarettes Per Day: 6 Smoked in Last 30 Days: Yes Use of substances other than those prescribed or required for medical reasons: No Advance Directives: No Advance Directives Information Provided: No Do you have a plan to hurt others: No Plan Nutrition Risks: No Nutritional Risk Patient : No service: No Physical Exam ED Vital Signs: Vital Signs - 24 hr 04/18/25 20:22 04/18/25 22:12 04/18/25 23:09 Temperature 99.7 F 100.6 F H 102.7 F H Pulse Rate 106 H Respiratory Rate 16 Blood Pressure 141/71 H Pulse Oximetry 99 Oxygen Delivery Method Room Air 04/18/25 23:09 04/19/25 00:35 Temperature 102.7 F H 98.4 F Pulse Rate 98 Respiratory Rate 16 Blood Pressure 133/73 Pulse Oximetry 98 Oxygen Delivery Method Room Air BMI result Body Mass Index 29.5 Const General: healthy appearing, comfortable, no acute distress, alert and awake Nutritional Appearance: well nourished Orientation/consciousness: patient oriented x3 HENMT Head: Yes normocephalic and Yes atraumatic Eyes Eyelids: Yes eyelids normal Conjunctivae: conjunctivae normal Sclerae: sclerae normal Corneas: corneas normal Pupils: Equal, round and reactive pupils present EOM: EOMs intact bilaterally Neck Neck: Yes full ROM Resp Effort & Inspection: normal respiratory effort, able to speak in complete sentences and not labored GI Other: Tenderness in the left lower quadrant with positive CVA tenderness unless. Inspection: No distended Palpation (GI): Soft to palpation, not firm, nontender, no guarding and not rigid Skin General skin exam: elasticity normal Neuro General: patient oriented x3 Cranial nerves: Yes Equal, round and reactive pupils present and Yes Bilaterally intact EOM present Cognition (Neuro): normal cognition Extrem Other: Moving all extremities well without any obvious deformities Medications Administered Generic Name Dose Route Start Last Admin Trade Name Freq PRN Reason Stop Dose Admin Lactated Ringer's 1,000 mls @ 999 mls/hr 04/19/25 00:30 04/19/25 00:56 Lr IV 04/19/25 01:30 Infused .Q1H1M MARII Infusion Lactated Ringer's 1,000 mls @ 125 mls/hr 04/19/25 00:45 04/19/25 01:12 Lr IVCONT 04/19/25 08:44 125 mls/hr .Q8H MARII Administration Discontinued Medications Generic Name Dose Route Start Last Admin Trade Name Freq PRN Reason Stop Dose Admin Acetaminophen 650 mg 04/18/25 23:19 04/18/25 23:22 Acetaminophen 325 Mg Tablet PO 04/18/25 23:20 650 mg ONCE ONE Administration Ceftriaxone Sodium 1 gm 04/19/25 00:36 04/19/25 00:52 Ceftriaxone Sodium 1 Gm Vial IVPUSH 04/19/25 00:37 1 gm ONCE ONE Administration Ketorolac Tromethamine 30 mg 04/19/25 00:45 04/19/25 01:08 Ketorolac Tromethamine 30 Mg/Ml Vial IVPUSH 04/19/25 06:46 30 mg Q6H MARII Administration Morphine Sulfate 4 mg 04/19/25 00:27 04/19/25 00:36 Morphine Sulfate 4 Mg/Ml Cartridge IVPUSH 04/19/25 00:28 4 mg ONCE ONE Administration Protocol Ondansetron HCl 4 mg 04/19/25 00:27 04/19/25 00:36 Ondansetron Hcl 4 Mg/2 Ml Vial IVPUSH 04/19/25 00:28 4 mg ONCE ONE Administration Medical Decision Making Medical Decision Making [facility] Narrative: 39-year-old female with a history of polycystic kidney disease presents for evaluation of left flank pain, fevers. She was recently diagnosed with pyelonephritis and was treated with Zosyn. She has completed 2-1/2 days of Augmentin as well after leaving against medical advice. She reports feeling worse with continued flank pain now developing on the right and continued fevers. Time my evaluation her temperature was a 102.7?. She is going to acetaminophen. She still has a leukocytosis and a urinalysis consistent with a UTI. I do not see any indicate chin for repeat imaging at this time. I will order ceftriaxone as her last urine culture was pansensitive Differential Diagnosis Differential Diagnoses: The differential diagnosis associated with the presentation includes UTI Cystitis Pyelonephritis Flank pain Obstructive uropathy less likely Admission/Observation Consideration of admission/observation: Escalation of care including admission/observation considered Consult Healthcare Provider Management of the patient was discussed with: Hospitalist Lab Data [facility] Lab Attestation statement: I reviewed the patient's lab results. Leukocytosis to 13.4, no significant anemia. Normal platelet count. No electrolyte abnormalities warranting dimension. The patient is not 04/18/25 21:11 04/18/25 21:11 Labs: Lab Results 04/18/25 04/18/25 Range/Units 21:11 22:38 WBC 13.4 H (4.8-10.8) X10*3/uL RBC 3.95 L (4.20-5.50) X10*6/uL Hgb 12.7 (12.0-16.0) g/dl Hct 38.1 (37.0-47.0) % MCV 96.5 (80.0-98.0) fL MCH 32.2 (27.0-33.0) pg MCHC 33.3 (31.0-35.0) g/dl RDW 12.6 (11.0-16.0) % Plt Count 350 D (160-400) X10*3/uL MPV 9.8 (9.4-12.3) fL Immature Gran % (Auto) 0.5 H (0.0-0.4) % Neut % (Auto) 83.1 H (45-73) % Lymph % (Auto) 7.5 L (20-40) % [place] % (Auto) 8.2 (2-11) % Eos % (Auto) 0.3 (0-4) % Baso % (Auto) 0.4 (0-2) % Lymph # (Auto) 1.0 L (1.2-4.9) X10*3/uL [place] # (Auto) 1.1 (0.1-1.2) X10*3/uL Eos # (Auto) 0.0 (0.0-0.4) X10*3/uL Baso # (Auto) 0.1 (0.0-0.2) X10*3/uL Abs Immat Gran (auto) 0.07 H (0.00-0.03) X10*3/uL Absolute Neuts (auto) 11.1 H (2.0-8.3) x10*3/uL Absolute Nucleated RBC 0.000 (0.0-0.012) X10*3/uL Nucleated RBC % (auto) 0.0 (0.0-0.2) /100WBC Sodium 137 (135-145) mmol/L Potassium 4.0 (3.3-5.1) mmol/L Chloride 104 (96-108) mmol/L Carbon Dioxide 23 (22-29) mmol/L Anion Gap 14 (12-20) BUN 13 (9-16) mg/dL Creatinine 1.02 (0.5-1.4) mg/dL Estim Creat Clear Calc 70.0 Estimated GFR > 60 Random Glucose 102 (60-115) mg/dL Lactic Acid 1.1 (0.5-2.0) mmol/L Calcium 9.8 D (8.4-10.2) mg/dL Magnesium 1.8 (1.6-2.6) mg/dL Total Bilirubin 0.7 (0.0-1.0) mg/dL AST 36 H (5-31) U/L ALT 28 (0-31) U/L Alkaline Phosphatase 230 H (39-117) U/L Total Protein 6.8 (6.5-8.0) g/dL Albumin 3.9 (3.5-5.0) g/dL Lipase 19 (8-78) U/L Beta HCG, Quant < 2 mIU/mL Urine Color Dark Yellow Urine Appearance Cloudy Urine pH 8.0 (5.0-9.0) Ur Specific [place] 1.015 (1.005-1.025) Urine Protein 100 (2+) H (Neg-Trace) mg/dL Urine Glucose (UA) Negative (Negative) mg/dL Urine Ketones Negative (Negative) mg/dL Urine Blood Small (1+) H (Negative) Urine Nitrite Negative (Negative) Ur Leukocyte Esterase Trace H (Negative) Urine RBC 6-10 H (0-2) /HPF Urine WBC 6-10 (0-5) /HPF Ur Squamous Epith Cells >20 (0-2) /HPF Urine Bacteria None Seen (None Seen) Hyaline Casts 0-2 (0-2) /LPF Tests considered The following testing was considered but not selected: Consider CT scan of the abdomen pelvis, however the patient had this a few days ago. Deferred at this Discharge Plan Discharge Clinical Impression: Pyelonephritis Patient Disposition: Admitted As Inpatient Print Language: Upper Sorbian
[2025-04-19] MEDS: Lactated Ringers 1,000 ML 999 ML IV (00:40)
--- NOTE | 2025-04-19 00:42 | P.HPHOSP_ITS ---
History of Present Illness Date of Service: 04/19/25 Attending physician on admission: Vince Neely Chief Complaint: Left flank pain Deneen Hirsch is a 39 years old woman with a past medical history significant for polycystic kidney disease presents to the emergency department complaining of left flank pain that started tonight. Pain is sharp and severe radiating to the mid back and left lower quadrant. The pain increases with deep inspiration. It is associated with 100.1 and chills. She denied nausea, vomiting or pain with urination. She had an episode of hematuria/dark urine. Past medical history significant for x1, cholecystectomy, appendectomy, tubal ligation and tubal reversal surgery. The patient was recently hospitalized to the hospital with diagnosis of pyelonephritis treated with IV antibiotics (Zosyn) but decided to leave against medical advice on 04/16/2025. She was sent home with a course of Augmentin, and took 4 doses so far. She did not report any illicit drug use, tobacco smoking or alcohol abuse. Denies history of STD, active vaginal bleeding/menses or discharges. In the ED, she was found to have stable vital signs. Temperature was 102.7 degrees, most recent one is 98.4. Blood workup was remarkable for leukocytosis of 13.4, hemoglobin is 12.7 and platelets 350. The electrolyte imbalances. BUN is 13 and creatinine 1.02. LFTs are remarkable for AST of 36, alk-phos 230. AST, bilirubin and lipase are normal. test is negative. Urinalysis showed proteinuria, small blood, trace leukocyte steroids, RBCs 6-10 and WBC 6- 10 without bacteria. ED tx: Tylenol 650 mg p.o., morphine 4 mg IV, Zofran 4 mg IV, ceftriaxone 1 g IV Review of Systems 2 Review of Systems: All 12 systems were reviewed and normal except as noted in HPI. [facility] Medical History Abdominal pain Hx of nausea and vomiting Polycystic kidney disease Surgical History History of reversal of tubal ligation Hx of tubal ligation History of Hx of appendectomy Hx of cholecystectomy Social History Household Members: Significant Other Housing: House Are you a primary director of critical care to a significant other at home: No Do you presently have visiting nurse or other home services: No Alcohol intake: former Patient Tobacco Use Status: Current everyday Tobacco user Tobacco use type: Cigarette Cigarettes Per Day: 6 Smoked in Last 30 Days: Yes Use of substances other than those prescribed or required for medical reasons: No Advance Directives: No Advance Directives Information Provided: No Do you have a plan to hurt others: No Plan Nutrition Risks: No Nutritional Risk Patient : No service: No Meds Allergies Allergy/AdvReac Type Severity Reaction Status Date / Time No Known Allergies (No Known Allergy Verified 04/18/25 20:26 Allergies*) Active Medications: Current Medications Acetaminophen (Acetaminophen 325 Mg Tablet) 975 mg PO Q6H PRN PRN Reason: Pain, Mild 1-3,fever,headache Calcium Carbonate (Calcium Carbonate 750 Mg Tab.Chew) 750 mg PO Q4H PRN PRN Reason: Heartburn Enoxaparin Sodium (Enoxaparin Sodium 40 Mg/0.4 Ml Syringe) 40 mg SUBCUT Q24H [facility] Lactated Ringer's (Lr) 1,000 mls @ 999 mls/hr IV .Q1H1M [facility] Stop: 04/19/25 01:30 Last Admin: 04/19/25 00:40 Dose: 999 mls/hr Ketorolac Tromethamine (Ketorolac Tromethamine 30 Mg/Ml Vial) 30 mg IVPUSH Q6H [facility] Stop: 04/19/25 06:46 Magnesium Hydroxide (Milk Of Magnesia 30 Ml Oral.Susp) 30 ml PO DAILY PRN PRN Reason: Constipation Melatonin (Melatonin 3 Mg Tablet) 6 mg PO BEDTIME PRN PRN Reason: Insomnia Sodium Chloride (0.9 % Sodium Chloride Flush 3 Ml Syringe) 3 ml IVFLUSH QSHIFT [facility] Home Medications ?Medication ?Instructions ?Recorded ?Confirmed ?Last Taken ?Type diphenhydramine 25 1 tab PO BEDTIME PRN Insomni a 02/08/25 04/14/25 02/07/25 History mg-acetaminophen 500 mg tablet (Tylenol PM Extra Strength) ibuprofen 200 mg tablet 400 mg PO Q6H PRN Pain/Sleep 04/14/25 04/14/25 Unknown History omeprazole 20 mg capsule,delayed 20 mg PO DAILY@0630 0 04/14/25 04/14/25 04/13/25 History release Physical Exam 2 Vital Signs and Narrative: Vital Signs: Last Vital Signs Temp 98.4 F 04/19/25 00:35 Pulse 98 04/18/25 23:09 Resp 16 04/18/25 23:09 BP 133/73 04/18/25 23:09 Pulse Ox 98 04/18/25 23:09 O2 Del Method Room Air 04/18/25 23:09 BMI result Body Mass Index 29.5 Constitutional - Awake and Alert, No apparent distress. Febrile. HEENT- PER, EOMI. Dry oral mucosa. Heart - S1S2, RRR, No edema Lungs - Normal lung expansion, Normal respiratory effort, No respiratory distress, CTA bilaterally Abdomen - Nondistended, left flank/left lower quadrant tenderness to palpation with guarding. Normal bowel sounds. Extremities - no calf tenderness bilaterally, no swelling - left CVA tenderness Musculoskeletal - Normal inspection, normal ROM Skin - Warm/Dry Neurological - Alert & oriented x3. Moving all extremities spontaneously. Normal speech. Psychological - Appropriate affect Results Labs 04/18/25 21:11 04/18/25 21:11 Labs: Laboratory Results - last 24 hr 04/18/25 04/18/25 21:11 22:38 MCV 96.5 MCH 32.2 MCHC 33.3 RDW 12.6 Plt Count 350 D MPV 9.8 Immature Gran % (Auto) 0.5 H Neut % (Auto) 83.1 H Lymph % (Auto) 7.5 L [place] % (Auto) 8.2 Eos % (Auto) 0.3 Baso % (Auto) 0.4 Lymph # (Auto) 1.0 L [place] # (Auto) 1.1 Eos # (Auto) 0.0 Baso # (Auto) 0.1 Abs Immat Gran (auto) 0.07 H Absolute Neuts (auto) 11.1 H Absolute Nucleated RBC 0.000 Nucleated RBC % (auto) 0.0 Anion Gap 14 Estim Creat Clear Calc 70.0 Estimated GFR > 60 Random Glucose 102 Lactic Acid 1.1 Calcium 9.8 D Magnesium 1.8 Total Bilirubin 0.7 AST 36 H ALT 28 Alkaline Phosphatase 230 H Total Protein 6.8 Albumin 3.9 Lipase 19 Beta HCG, Quant < 2 Urine Color Dark Yellow Urine Appearance Cloudy Urine pH 8.0 Ur Specific [place] 1.015 Urine Protein 100 (2+) H Urine Glucose (UA) Negative Urine Ketones Negative Urine Blood Small (1+) H Urine Nitrite Negative Ur Leukocyte Esterase Trace H Urine RBC 6-10 H Urine WBC 6-10 Ur Squamous Epith Cells >20 Urine Bacteria None Seen Hyaline Casts 0-2 Assessment and Plan (1) Pyelonephritis: Status: Acute (2) Left lower lobe pulmonary infiltrate: Status: Acute Plan Deneen Hirsch is a 39 y/o woman with a PMHx significant for polycystic kidney disease who present with: Acute pyelonephritis; partially treated + failed outpatient tx, UC 04/17/25 group E coli pansensitive. Empiric IV antibiotic therapy with ceftriaxone. IV fluids. Pain control with Dilaudid IV. If fever and pain persists with consider repeating abdomen and pelvis CT scan with IV contrast (recent 04/15/2025 CT w/o IV done - mild stranding left kidney) to assess for renal abscesses/infected kidney cysts; for now we want to avoid radiation and IV contrast. Urine and blood cultures repeated -will follow results. LLL infiltrate on CT 04/15/2025. Mid-back pain with deep inspiration. Check CXR. Continue ceftriaxone. Code status: Full DVT prophylaxis: Lovenox Patient will need hospitalization for at least 2 midnights for acute pyelonephritis therapy with IV antibiotics as the patient failed outpatient treatment. Quality Stroke Does the patient have a stroke diagnosis?: No VTE Prior VTE?: No VTE Risk Level:: Medical - moderate - high VTE Device Contraindication: Treatment Not Indicated VTE Drug Contraindication: N/A - Med Ordered
--- NOTE | 2025-04-19 00:56 | PC.NURSE ---
free hanging LR infused early as order changed to LR for 8 hours.
[2025-04-19] MEDS: Lactated Ringers 1,000 ML 125 ML IVCONT (01:12)
--- NOTE | 2025-04-19 06:09 | PC.NURSE ---
pt medicated with PRN pain ed for 10/10 pain in back.
--- NOTE | 2025-04-19 07:59 | PHA.MEDREC ---
Addendum entered by Esther Yanez RPh 04/19/25 08:11: reviewed by [facility] Original Note: Pharmacy Consult ? Medication Reconciliation Pharmacy has completed the medication reconciliation. Spoke with pt and she confirmed her medications. Pt confirmed she started an Amoxicillin-Pot Clavulanate regimen BID for 10 days on Thursday and she confirmed her Oxycodone 10mg tab po Q4h prn pain.
--- NOTE | 2025-04-19 08:37 | HO.PM.IMPN ---
Subjective Subjective Date of Service: 04/19/25 Interval History: conitnues to have L>R CVA tenderness , slightly better since admission Has been afebrile since admission Pain meds being adjusted able to tolerate po intake and meds Review of Systems Review of Systems: Yes all other systems are reviewed and are negative Physical Exam Exam: Exam: General: AOx3, looks very uncomfortable, but reports mild improvement since admission Resp: CTA bilaterally CVS: S1, S2, RRR : GI: +BS, NT, no distention Skin: Warm, dry Neuro: Cranial nerves II-XII grossly intact bilaterally. Motor grossly intact bilaterally Extremities: No edema Psych: Appropriate affect Vital Signs: Vital Signs: Last Vital Signs Temp 97.8 F 04/19/25 08:27 Pulse 85 04/19/25 08:27 Resp 18 04/19/25 08:27 BP 125/72 04/19/25 08:27 Pulse Ox 99 04/19/25 08:27 O2 Del Method Room Air 04/19/25 08:27 BMI result Body Mass Index 29.5 Objective Data Active Medications Acetaminophen (Acetaminophen 325 Mg Tablet) 975 mg PO Q6H PRN PRN Reason: Pain, Mild 1-3,fever,headache Calcium Carbonate (Calcium Carbonate 750 Mg Tab.Chew) 750 mg PO Q4H PRN PRN Reason: Heartburn Ceftriaxone Sodium (Ceftriaxone Sodium 1 Gm Vial) 1 gm IVPUSH Q24H [facility] Enoxaparin Sodium (Enoxaparin Sodium 40 Mg/0.4 Ml Syringe) 40 mg SUBCUT Q24H [facility] Hydromorphone HCl (Hydromorphone Hcl 0.5 Mg/0.5 Ml Syringe) 0.5 mg IVPUSH Q3H PRN; Protocol PRN Reason: Pain, Severe (Pain Scale 7-10) Last Admin: 04/19/25 06:04 Dose: 0.5 mg Documented By: TU Lactated Ringer's (Lr) 1,000 mls @ 125 mls/hr IVCONT .Q8H AB[facility] Stop: 04/19/25 08:44 Last Admin: 04/19/25 01:12 Dose: 125 mls/hr Documented By: TU Magnesium Hydroxide (Milk Of Magnesia 30 Ml Oral.Susp) 30 ml PO DAILY PRN PRN Reason: Constipation Melatonin (Melatonin 3 Mg Tablet) 6 mg PO BEDTIME PRN PRN Reason: Insomnia Ondansetron HCl (Ondansetron Hcl 4 Mg/2 Ml Vial) 4 mg IVPUSH Q6H PRN PRN Reason: Nausea and Vomiting Sodium Chloride (0.9 % Sodium Chloride Flush 3 Ml Syringe) 3 ml IVFLUSH QSHIFT [facility] TO [facility] Labs 04/19/25 14:02 04/19/25 14:02 Labs: Laboratory Results - last 24 hr 04/18/25 04/18/25 21:11 22:38 MCV 96.5 MCH 32.2 MCHC 33.3 RDW 12.6 Plt Count 350 D MPV 9.8 Immature Gran % (Auto) 0.5 H Neut % (Auto) 83.1 H Lymph % (Auto) 7.5 L [place] % (Auto) 8.2 Eos % (Auto) 0.3 Baso % (Auto) 0.4 Lymph # (Auto) 1.0 L [place] # (Auto) 1.1 Eos # (Auto) 0.0 Baso # (Auto) 0.1 Abs Immat Gran (auto) 0.07 H Absolute Neuts (auto) 11.1 H Absolute Nucleated RBC 0.000 Nucleated RBC % (auto) 0.0 Anion Gap 14 Estim Creat Clear Calc 70.0 Estimated GFR > 60 Random Glucose 102 Lactic Acid 1.1 Calcium 9.8 D Magnesium 1.8 Total Bilirubin 0.7 AST 36 H ALT 28 Alkaline Phosphatase 230 H Total Protein 6.8 Albumin 3.9 Lipase 19 Beta HCG, Quant < 2 Urine Color Dark Yellow Urine Appearance Cloudy Urine pH 8.0 Ur Specific Reserve 1.015 Urine Protein 100 (2+) H Urine Glucose (UA) Negative Urine Ketones Negative Urine Blood Small (1+) H Urine Nitrite Negative Ur Leukocyte Esterase Trace H Urine RBC 6-10 H Urine WBC 6-10 Ur Squamous Epith Cells >20 Urine Bacteria None Seen Hyaline Casts 0-2 Assessment and Plan (1) Pyelonephritis: Status: Acute Plan Pt is a 39 yo F with pmh notable for PCKD with recent diagnosis of L Pyelonephritis who left AMA after being worked up and admitted for L pyelonephritis on prior imaging was readmitted <2 days after leaving AMA on 04/16/25 presents with simialr symptoms and is being admitted for E coli sepsis 2/2 L pyelonepritis. E coli sepsis 2/2 L pyelonepritis in a pt with PCKD - failed OP abx and left AMA 2 days ago Recent Ecoli UTI pansensitive - on ceftriaxone PCKD - chronic E coli pansensitive - hence cont on IV ceftriaxone IV fluids - will DC based on response Will rescan CT A/P w con, given concern for development of reginald-nepric abscess given poor response to po OP abx Severe pain - 2/2 Pyelonepritis Pain mx with Abigail tylenol, Oxycontin and prn morphine This note is constructed using voice recognition software. While every effort has been made to ensure accuracy, jazz musician errors may have been included. Pt is at high risk of decompensation 2/2 severe sepsis , decompensation and . Quality Stroke Does the patient have a stroke diagnosis?: No VTE Prior VTE?: No VTE Risk Level:: Medical - moderate - high VTE Device Contraindication: Treatment Not Indicated VTE Drug Contraindication: N/A - Med Ordered
[2025-04-19 14:16] LABS: Hematocrit 34.5 % (37.0-47.0); Hemoglobin 11.5 g/dl (12.0-16.0); Mean Corpuscular HGB Conc 33.3 g/dl (31.0-35.0); Mean Corpuscular Hemoglobin 32.2 pg (27.0-33.0); Mean Corpuscular Volume 96.6 fL (80.0-98.0); NRBC Abs Auto 0.000 X10*3/uL (0.0-0.012); NRBC Pct Auto 0.0 /100WBC (0.0-0.2); Platelet Count 358 X10*3/uL (160-400); Red Blood Count 3.57 X10*6/uL (4.20-5.50); White Blood Count 13.6 X10*3/uL (4.8-10.8)
--- NOTE | 2025-04-19 14:25 | MHC.CM.PN ---
pt lives qwith compae is indepdent has no services dc plan home n/s
[2025-04-19 14:30] LABS: Anion Gap 11 (12-20); Blood Urea Nitrogen 11 mg/dL (9-16); Calcium 9.1 mg/dL (8.4-10.2); Carbon Dioxide 26 mmol/L (22-29); Chloride 103 mmol/L (96-108); Creatinine Clr Calc Pharmacy 70.7; Estimated Glomerular Filt Rate > 60; Potassium 4.0 mmol/L (3.3-5.1); Sodium 136 mmol/L (135-145)
--- NOTE | 2025-04-19 14:33 | HO.NURTONUR ---
Pt has had bilat flank pain since mid-March, was admitted, pt left after 1-2 days pt would leave AMA. After two attempts at admission, pt was last placed on Augment for the past 1-2 prior to coming here yesterday and presented w/ bilat flank pain and low-grade temp. Pt was medicated last w/ dilaudid @ 1300. She also had low grade temp of 100.7 and given APAP
[2025-04-19 14:55] LABS: Atypical Lymph Absolute Manual 0.4 x10*3/uL; Atypical Lymphs Percent Manual 3 % (0-6); Lymphocytes Absolute Manual 1.6 X10*3/uL (1.2-4.9); Lymphocytes Percent Manual 12 % (20-40); Monocytes Absolute Manual 1.0 X10*3/uL (0.1-1.2); Monocytes Percent Manual 7 % (2-11); Neutrophils Percent Manual 78 % (45-73)
[2025-04-19 14:57] LABS: Band Neutrophils Percent 0 % (3-5); Burr Cells 1+ (0-2) /OIF; Neutrophils Absolute Manual 10.6 X10*3/uL (2.0-8.3); RBC Morphology NOTED; Toxic Granulation PRESENT; Toxic Vacuolation PRESENT
[2025-04-19] MEDS: Lidocaine 4 % Patch ADH..PATCH 2 PATCH TRANSDERMA (16:02)
[2025-04-19] MEDS: 0.9 % Sodium Chloride Flush 3 ML SYRINGE IVFLUSH ×2 (16:52→21:14)
[2025-04-19] MEDS: oxyCODONE HCl ER 10 MG TAB.ER.12H PO ×2 (17:39→21:14)
[2025-04-19] MEDS: iohexoL 350 MG/ML 100 ML INFUS..BTL IV (19:37)
[2025-04-19] MEDS: Morphine Sulfate ER 15 MG TABLET.ER PO (19:59)
[2025-04-20 03:23] VITALS: BP 124/77; PULSE 86; RESP 18; TEMP 37.5; O2SAT 99
[2025-04-20] MEDS: Morphine Sulfate ER 15 MG TABLET.ER PO ×2 (05:31→14:59)
[2025-04-20 07:05] LABS: Hematocrit 37.3 % (37.0-47.0); Hemoglobin 12.2 g/dl (12.0-16.0); Imm Gran Abs Auto 0.19 X10*3/uL (0.00-0.03); Imm Gran Pct Auto 1.1 % (0.0-0.4); Lymphocytes Absolute Auto 2.4 X10*3/uL (1.2-4.9); MANUAL DIFF FLAG SCAN; Mean Corpuscular HGB Conc 32.7 g/dl (31.0-35.0); Mean Corpuscular Hemoglobin 31.4 pg (27.0-33.0); Mean Corpuscular Volume 96.1 fL (80.0-98.0); NRBC Abs Auto 0.000 X10*3/uL (0.0-0.012); NRBC Pct Auto 0.0 /100WBC (0.0-0.2); PLT CLUMP 1; Red Blood Count 3.88 X10*6/uL (4.20-5.50); SCAN SMEAR FLAG 1; White Blood Count 16.8 X10*3/uL (4.8-10.8)
--- NOTE | 2025-04-20 07:27 | P.PNIM_ITS ---
Subjective Subjective Date of Service: 04/20/25 Interval History: Patient underwent CT a/P with contrast-no definitive well-defined abscesses noted, redemonstration of multiple renal cysts, similar left upper pole mixed density pyelonephritis redemonstrated However when asked if the patient was feeling better, she reported not feeling well We will continue pain control Leukocytosis slightly up titrating-could be in the setting of stress response, has been afebrile and hemodynamically stable Able to tolerate p.o. We will deescalate to p.o. antibiotics tomorrow Significant bilateral CVA tenderness continues to be redemonstrated Review of Systems Review of Systems: Yes all other systems are reviewed and are negative Physical Exam 2 Exam: Exam: General: AOx3, looks less uncomfortable, but reports mild improvement since admission Resp: CTA bilaterally CVS: S1, S2, RRR GI: +BS, NT, no distention Skin: Warm, dry Neuro: Motor grossly intact bilaterally Extremities: No edema Psych: Appropriate affect Vital Signs: Vital Signs: Last Vital Signs Temp 99.5 F 04/20/25 03:23 Pulse 86 04/20/25 03:23 Resp 18 04/20/25 03:23 BP 124/77 04/20/25 03:23 Pulse Ox 99 04/20/25 03:23 O2 Del Method Room Air 04/20/25 03:23 BMI result Body Mass Index 29.8 Objective Data Active Medications Acetaminophen (Acetaminophen 325 Mg Tablet) 975 mg PO Q6H [facility] Last Admin: 04/20/25 06:25 Dose: Not Given Documented By: FRANKLYN Non-Admin Reason: Patient Refused Calcium Carbonate (Calcium Carbonate 750 Mg Tab.Chew) 750 mg PO Q4H PRN PRN Reason: Heartburn Ceftriaxone Sodium (Ceftriaxone Sodium 1 Gm Vial) 1 gm IVPUSH Q24H [facility] Last Admin: 04/20/25 00:49 Dose: 1 gm Documented By: FRANKLYN Docusate Sodium (Docusate Sodium 100 Mg Capsule) 100 mg PO DAILY PRN PRN Reason: Constipation Enoxaparin Sodium (Enoxaparin Sodium 40 Mg/0.4 Ml Syringe) 40 mg SUBCUT Q24H [facility] Last Admin: 04/19/25 09:05 Dose: 40 mg Documented By: YUSRA Lidocaine (Lidocaine 4 % Patch Adh..Patch) 2 patch TRANSDERMA DAILY [facility]; Protocol Last Admin: 04/19/25 16:02 Dose: 2 patch Documented By: CECILE Magnesium Hydroxide (Milk Of Magnesia 30 Ml Oral.Susp) 30 ml PO DAILY PRN PRN Reason: Constipation Melatonin (Melatonin 3 Mg Tablet) 6 mg PO BEDTIME PRN PRN Reason: Insomnia Methocarbamol (Methocarbamol 500 Mg Tablet) 500 mg PO TID [facility] Last Admin: 04/19/25 21:14 Dose: 500 mg Documented By: FRANKLYN Morphine Sulfate (Morphine Sulfate Er 15 Mg Tablet.Er) 15 mg PO Q8H PRN PRN Reason: Pain, Severe (Pain Scale 7-10) Last Admin: 04/20/25 05:31 Dose: 15 mg Documented By: FRANKLYN Omeprazole (Omeprazole 20 Mg Capsule.Dr) 20 mg PO DAILY@0630 [facility] Last Admin: 04/20/25 05:32 Dose: 20 mg Documented By: FRANKLYN Ondansetron HCl (Ondansetron Hcl 4 Mg/2 Ml Vial) 4 mg IVPUSH Q6H PRN PRN Reason: Nausea and Vomiting Oxycodone HCl (Oxycodone Hcl Er 10 Mg Tab.Er.12h) 10 mg PO BID [facility] Last Admin: 04/19/25 21:14 Dose: 10 mg Documented By: FRANKLYN Senna (Sennosides 8.6 Mg Tablet) 8.6 mg PO BEDTIME PRN PRN Reason: Constipation Sodium Chloride (0.9 % Sodium Chloride Flush 3 Ml Syringe) 3 ml IVFLUSH QSHIFT [facility] Last Admin: 04/19/25 21:14 Dose: 3 ml Documented By: FRANKLYN Labs 04/20/25 05:49 04/20/25 08:55 Labs: Laboratory Results - last 24 hr 04/19/25 04/20/25 14:02 05:49 MCV 96.6 96.1 MCH 32.2 31.4 MCHC 33.3 32.7 RDW 12.8 12.8 Plt Count 358 MPV 9.7 Immature Gran % (Auto) Cancelled Neut % (Auto) Cancelled Lymph % (Auto) Cancelled [place] % (Auto) Cancelled Eos % (Auto) Cancelled Baso % (Auto) Cancelled Lymph # (Auto) Cancelled [place] # (Auto) Cancelled Eos # (Auto) Cancelled Baso # (Auto) Cancelled Abs Immat Gran (auto) Cancelled Absolute Neuts (auto) Cancelled Absolute Nucleated RBC 0.000 Nucleated RBC % (auto) 0.0 Neutrophils % (Manual) 78 H Band Neutrophils % 0 L Lymphocytes % (Manual) 12 L Atypical Lymphs % (Man) 3 Monocytes % (Manual) 7 Abs Neuts (Manual) 10.6 H Lymphocytes # (Manual) 1.6 Atyp Lymphs # (Manual) 0.4 Monocytes # (Manual) 1.0 Toxic Granulation PRESENT Toxic Vacuolation PRESENT Platelet Estimate NORMAL Plt Morphology Comment NORMAL RBC Morphology NOTED Natasha Cells 1+ (0-2) Anion Gap 11 L Estim Creat Clear Calc 70.7 Estimated GFR > 60 Random Glucose 112 Calcium 9.1 D Microbiology Microbiology Results: Microbiology 04/18/25 22:38 Blood Culture - Preliminary Blood - Venous No growth after 24 hours. 04/18/25 21:11 Blood Culture - Preliminary Blood - Venous No growth after 24 hours. Assessment and Plan (1) Pyelonephritis: Status: Acute Plan Pt is a 39 yo F with pmh notable for PCKD with recent diagnosis of L Pyelonephritis who left AMA after being worked up and admitted for L pyelonephritis on prior imaging was readmitted <2 days after leaving AMA on 04/16/25 presents with simialr symptoms and is being admitted for E coli sepsis 2/2 L pyelonepritis. E coli sepsis 2/2 L pyelonepritis in a pt with PCKD - failed OP abx and left AMA 2 days prior to this admission Recent Ecoli UTI pansensitive - we will switch from IV ceftriaxone to p.o. Bactrim PCKD - chronic E coli pansensitive - we will switch to p.o. Bactrim from tomorrow 04/21/2025 Given optimal hemodynamic status, we will stop IV fluids and encourage p.o. intake Repeat scan redemonstrated similar findings as prior admission left upper pole pyelonephritis and redemonstration of chronic Severe pain - 2/2 Pyelonepritis Pain mx with Abigail tylenol, Oxycontin and prn morphine having difficulty weaning as she reports significant pain with no improvement Have initiated lidocaine patches Patient is ambulatory at baseline, does not likely need PTOT or rehab placement This note is constructed using voice recognition software. While every effort has been made to ensure accuracy, radiology transcriptionist errors may have been included. Patient needs continuing admission given need for adjusting antibiotics given persistent pyelonephritis, is at significant risk of decompensation and if not treated Anticipating DC in 2 days Quality Stroke Does the patient have a stroke diagnosis?: No VTE Prior VTE?: No VTE Risk Level:: Medical - moderate - high VTE Device Contraindication: Treatment Not Indicated VTE Drug Contraindication: N/A - Med Ordered
[2025-04-20 08:04] LABS: Platelet Count 392 X10*3/uL (160-400)
[2025-04-20 08:21] VITALS: BP 120/72; PULSE 82; RESP 16; TEMP 37.1; O2SAT 95
[2025-04-20] MEDS: 0.9 % Sodium Chloride Flush 3 ML SYRINGE IVFLUSH ×3 (09:26→20:21)
[2025-04-20] MEDS: oxyCODONE HCl ER 10 MG TAB.ER.12H PO ×2 (09:26→20:20)
[2025-04-20] MEDS: Lidocaine 4 % Patch ADH..PATCH 2 PATCH TRANSDERMA (09:26)
[2025-04-20 10:01] LABS: Alanine Aminotransferase 30 U/L (0-31); Albumin Level 3.5 g/dL (3.5-5.0); Alkaline Phosphatase 264 U/L (39-117); Anion Gap 13 (12-20); Aspartate Amino Transferase 33 U/L (5-31); Blood Urea Nitrogen 10 mg/dL (9-16); Calcium 9.2 mg/dL (8.4-10.2); Carbon Dioxide 24 mmol/L (22-29); Chloride 104 mmol/L (96-108); Creatinine Clr Calc Pharmacy 71.8; Estimated Glomerular Filt Rate > 60; Magnesium 1.9 mg/dL (1.6-2.6); Potassium 3.7 mmol/L (3.3-5.1); Sodium 137 mmol/L (135-145); Total Protein 6.3 g/dL (6.5-8.0)
[2025-04-20 16:04] VITALS: BP 129/64; PULSE 82; RESP 18; TEMP 37.2; O2SAT 97
[2025-04-20 20:00] VITALS: BP 123/78; PULSE 89; RESP 20; TEMP 36.5; O2SAT 98
[2025-04-20] MEDS: Sulfamethox/Trimeth 800/160 TABLET 1 TAB PO (20:20)
[2025-04-20] MEDS: oxyCODONE HCl Immed Release 5 MG TABLET PO (21:14)
[2025-04-21 03:31] VITALS: BP 123/76; PULSE 81; RESP 18; TEMP 36.7; O2SAT 97
[2025-04-21] MEDS: Morphine Sulfate ER 15 MG TABLET.ER PO (03:44)
[2025-04-21 06:03] LABS: MANUAL DIFF FLAG NO
[2025-04-21 06:26] LABS: Hematocrit 35.2 % (37.0-47.0); Hemoglobin 11.5 g/dl (12.0-16.0); Imm Gran Abs Auto 0.09 X10*3/uL (0.00-0.03); Imm Gran Pct Auto 0.7 % (0.0-0.4); Lymphocytes Absolute Auto 1.9 X10*3/uL (1.2-4.9); Mean Corpuscular HGB Conc 32.7 g/dl (31.0-35.0); Mean Corpuscular Hemoglobin 31.8 pg (27.0-33.0); Mean Corpuscular Volume 97.2 fL (80.0-98.0); NRBC Abs Auto 0.000 X10*3/uL (0.0-0.012); NRBC Pct Auto 0.0 /100WBC (0.0-0.2); Platelet Count 487 X10*3/uL (160-400); Red Blood Count 3.62 X10*6/uL (4.20-5.50); White Blood Count 12.9 X10*3/uL (4.8-10.8)
[2025-04-21 06:31] LABS: Alanine Aminotransferase 30 U/L (0-31); Albumin Level 3.4 g/dL (3.5-5.0); Alkaline Phosphatase 250 U/L (39-117); Anion Gap 13 (12-20); Aspartate Amino Transferase 43 U/L (5-31); Blood Urea Nitrogen 10 mg/dL (9-16); Calcium 9.0 mg/dL (8.4-10.2); Carbon Dioxide 26 mmol/L (22-29); Chloride 102 mmol/L (96-108); Creatinine Clr Calc Pharmacy 69.0; Estimated Glomerular Filt Rate 59; Potassium 4.3 mmol/L (3.3-5.1); Sodium 137 mmol/L (135-145); Total Protein 6.4 g/dL (6.5-8.0)
--- NOTE | 2025-04-21 07:15 | P.PNIM_ITS ---
Subjective Subjective Date of Service: 04/21/25 Physical Exam 2 Vital Signs: Vital Signs: Last Vital Signs Temp 98.1 F 04/21/25 03:31 Pulse 81 04/21/25 03:31 Resp 18 04/21/25 03:31 BP 123/76 04/21/25 03:31 Pulse Ox 97 04/21/25 03:31 O2 Del Method Room Air 04/21/25 03:31 BMI result Body Mass Index 29.8 Objective Data Active Medications Acetaminophen (Acetaminophen 325 Mg Tablet) 975 mg PO Q6H [facility] Last Admin: 04/21/25 06:14 Dose: Not Given Documented By: FRANKLYN Non-Admin Reason: Patient Refused Calcium Carbonate (Calcium Carbonate 750 Mg Tab.Chew) 750 mg PO Q4H PRN PRN Reason: Heartburn Docusate Sodium (Docusate Sodium 100 Mg Capsule) 100 mg PO DAILY PRN PRN Reason: Constipation Enoxaparin Sodium (Enoxaparin Sodium 40 Mg/0.4 Ml Syringe) 40 mg SUBCUT Q24H [facility] Last Admin: 04/20/25 09:26 Dose: 40 mg Documented By: RONALD Lidocaine (Lidocaine 4 % Patch Adh..Patch) 2 patch TRANSDERMA DAILY [facility]; Protocol Magnesium Hydroxide (Milk Of Magnesia 30 Ml Oral.Susp) 30 ml PO DAILY PRN PRN Reason: Constipation Melatonin (Melatonin 3 Mg Tablet) 6 mg PO BEDTIME PRN PRN Reason: Insomnia Methocarbamol (Methocarbamol 500 Mg Tablet) 500 mg PO TID [facility] Last Admin: 04/20/25 20:21 Dose: 500 mg Documented By: FRANKLYN Morphine Sulfate (Morphine Sulfate Er 15 Mg Tablet.Er) 15 mg PO Q8H PRN PRN Reason: Pain, Severe (Pain Scale 7-10) Last Admin: 04/21/25 03:44 Dose: 15 mg Documented By: FRANKLYN Omeprazole (Omeprazole 20 Mg Capsule.Dr) 20 mg PO DAILY@0630 [facility] Last Admin: 04/21/25 06:11 Dose: 20 mg Documented By: FRANKLYN Ondansetron HCl (Ondansetron Hcl 4 Mg/2 Ml Vial) 4 mg IVPUSH Q6H PRN PRN Reason: Nausea and Vomiting Oxycodone HCl (Oxycodone Hcl Er 10 Mg Tab.Er.12h) 10 mg PO BID [facility] Last Admin: 04/20/25 20:20 Dose: 10 mg Documented By: FRANKLYN Senna (Sennosides 8.6 Mg Tablet) 8.6 mg PO BEDTIME PRN PRN Reason: Constipation Sodium Chloride (0.9 % Sodium Chloride Flush 3 Ml Syringe) 3 ml IVFLUSH QSHIFT [facility] Last Admin: 04/20/25 20:21 Dose: 3 ml Documented By: FRANKLYN Trimethoprim/Sulfamethoxazole (Sulfamethox/Trimeth 800/160 Tablet) 1 tab PO Q12H [facility] Stop: 04/25/25 19:59 Last Admin: 04/20/25 20:20 Dose: 1 tab Documented By: FRANKLYN Labs 04/21/25 05:24 04/21/25 05:24 Labs: Laboratory Results - last 24 hr 04/20/25 04/20/25 04/21/25 05:49 08:55 05:24 MCV 97.2 MCH 31.8 MCHC 32.7 RDW 12.7 Plt Count 392 487 H MPV 10.8 9.7 Immature Gran % (Auto) 1.1 H 0.7 H Neut % (Auto) 72.6 74.0 H Lymph % (Auto) 14.4 L 14.6 L [place] % (Auto) 11.3 H 10.1 Eos % (Auto) 0.3 0.2 Baso % (Auto) 0.3 0.4 Lymph # (Auto) 2.4 1.9 [place] # (Auto) 1.9 H 1.3 H Eos # (Auto) 0.1 0.0 Baso # (Auto) 0.1 0.1 Abs Immat Gran (auto) 0.19 H 0.09 H Absolute Neuts (auto) 12.2 H 9.6 H Absolute Nucleated RBC 0.000 0.000 Nucleated RBC % (auto) 0.0 0.0 Smear Tech's Comments VERIFIED Anion Gap 13 13 Estim Creat Clear Calc 71.8 69.0 Estimated GFR > 60 59 Random Glucose 92 102 Calcium 9.2 9.0 Magnesium 1.9 Total Bilirubin 0.5 0.3 AST 33 H 43 H ALT 30 30 Alkaline Phosphatase 264 H 250 H Total Protein 6.3 L 6.4 L Albumin 3.5 3.4 L Microbiology Microbiology Results: Microbiology 04/18/25 22:38 Blood Culture - Preliminary Blood - Venous No growth after 48 hours. 04/18/25 21:11 Blood Culture - Preliminary Blood - Venous No growth after 48 hours. 04/18/25 Unknown Urine Culture - Final Urine clean catch - Clean Catch Midstream No growth. Quality Stroke Does the patient have a stroke diagnosis?: No VTE Prior VTE?: No VTE Risk Level:: Medical - moderate - high VTE Device Contraindication: Treatment Not Indicated VTE Drug Contraindication: N/A - Med Ordered
[2025-04-21 07:47] VITALS: BP 117/73; PULSE 72; RESP 16; TEMP 37.4; O2SAT 95
[2025-04-21] MEDS: Sulfamethox/Trimeth 800/160 TABLET 1 TAB PO (08:28)
[2025-04-21] MEDS: Lidocaine 4 % Patch ADH..PATCH 2 PATCH TRANSDERMA (08:29)
[2025-04-21] MEDS: oxyCODONE HCl ER 10 MG TAB.ER.12H PO (08:29)
[2025-04-21] MEDS: 0.9 % Sodium Chloride Flush 3 ML SYRINGE IVFLUSH (08:29)
[2025-04-21 16:00] VITALS: BP 114/66; PULSE 71; RESP 18; TEMP 37; O2SAT 97
--- NOTE | 2025-04-21 16:04 | MHC.CM.PN ---
PT CLEARED TO DC HOME TODAY WITH NO SERVICES VIA PRIVATE TRANSPORT
--- NOTE | 2025-04-21 16:28 | PM.DS ---
DS: Providers Provider Date of Service: 04/21/25 Date of admission: 04/19/25 00:37 Date of discharge: 04/21/25 Primary care physician: None Physician DS: Diagnosis Discharge Diagnosis (1) Pyelonephritis: Status: Acute DS: Summary Hospital Course Hospital Course: E coli sepsis 2/2 L pyelonepritis in a pt with PCKD - failed OP abx and left AMA 2 days prior to this admission Recent Ecoli UTI pansensitive - PCKD - chronic stable Pt is a 39 yo F with pmh notable for PCKD with recent diagnosis of L Pyelonephritis who left AMA after being worked up and admitted for L pyelonephritis on prior imaging was readmitted <2 days after leaving AMA on 04/16/25 presents with simialr symptoms and is being admitted for E coli sepsis 2/2 L pyelonepritis. E coli pansensitive - hence we have switched her IV antibiotics she which she was treated on admission to Bactrim on discharge (was able to tolerate p.o. intake since admission, and has had significant improvement in CVT which she needs to complete for 7 more days to complete a total 10 day course of antibiotics Repeat CT abdomen pelvis with contrast scan redemonstrated similar findings as prior admission left upper pole pyelonephritis and redemonstration of chronic Severe pain - 2/2 Pyelonepritis , was treated with Tylenol, Robaxin, oxycodone home dose, lidocaine patches with good effect Patient is ambulatory at baseline, does not likely need PTOT or rehab placement patient has remained afebrile, hemodynamically stable and able to tolerate p.o. intake hence based on my clinical judgment she is being discharged on Bactrim p.o.. With instructions to return if she does not feel any better. This note is constructed using voice recognition software. While every effort has been made to ensure accuracy, senior commissary agent errors may have been included. Time spent discussing smoking cessation with patient: more than 10 minutes Status at Discharge Functional status at discharge: independent ambulation Overall status at discharge: patient is back to baseline Time Attestation Discharge Coordination Time (in mins): Thirty-five Quality: Safe Use of Opioids Does Pt have an Active Cancer Diagnosis on the Problem List?: No Quality: Stroke Does the patient have a stroke diagnosis?: No Physical Exam Vital Signs: Vital Signs: Last Vital Signs Temp 98.6 F 04/21/25 16:00 Pulse 71 04/21/25 16:00 Resp 18 04/21/25 16:00 BP 114/66 04/21/25 16:00 Pulse Ox 97 04/21/25 16:00 O2 Del Method Room Air 04/21/25 16:00 BMI result Body Mass Index 29.8 DS: Data Data Completed and Pending Labs on day of discharge: Laboratory Results - last 24 hr 04/21/25 05:24 WBC 12.9 H RBC 3.62 L Hgb 11.5 L Hct 35.2 L MCV 97.2 MCH 31.8 MCHC 32.7 RDW 12.7 Plt Count 487 H MPV 9.7 Immature Gran % (Auto) 0.7 H Neut % (Auto) 74.0 H Lymph % (Auto) 14.6 L [place] % (Auto) 10.1 Eos % (Auto) 0.2 Baso % (Auto) 0.4 Lymph # (Auto) 1.9 [place] # (Auto) 1.3 H Eos # (Auto) 0.0 Baso # (Auto) 0.1 Abs Immat Gran (auto) 0.09 H Absolute Neuts (auto) 9.6 H Absolute Nucleated RBC 0.000 Nucleated RBC % (auto) 0.0 Sodium 137 Potassium 4.3 Chloride 102 Carbon Dioxide 26 Anion Gap 13 BUN 10 Creatinine 1.04 Estim Creat Clear Calc 69.0 Estimated GFR 59 Random Glucose 102 Calcium 9.0 Total Bilirubin 0.3 AST 43 H ALT 30 Alkaline Phosphatase 250 H Total Protein 6.4 L Albumin 3.4 L Preliminary micro results at discharge 04/18/25 22:38 Blood Culture - Preliminary Blood - Venous No growth after 48 hours. 04/18/25 21:11 Blood Culture - Preliminary Blood - Venous No growth after 48 hours. Discharge Plan Discharge Anticipated Discharge Date/Time: 04/21/25 15:21 Patient Disposition: Home, Self-Care Discharge Diagnosis: Sepsis secondary to E coli left pyelonephritis in a patient with P CKD pansensitive after failing outpatient antibiotics Referrals: Physician,None [Primary Care Provider, Medical] - 1 Week Discharge Medications: New methocarbamol 500 mg Tablet 500 mg PO TID 10 Days Qty: 30 0RF sulfamethoxazole-trimethoprim 800-160 mg Tablet 1 tab PO Q12H 10 Days Qty: 20 0RF Continued sennosides [Senna Lax] 8.6 mg Tablet 8.6 mg PO BEDTIME PRN (Reason: Constipation) Qty: 60 0RF docusate sodium [Colace] 100 mg capsule 100 mg PO DAILY PRN (Reason: constipation) Qty: 30 0RF acetaminophen 500 mg Tablet 1,000 mg PO Q6H PRN (Reason: Pain) ibuprofen 200 mg Tablet 400 mg PO Q6H PRN (Reason: Pain/Sleep) omeprazole 20 mg capsule,delayed release(DR/EC) 20 mg PO DAILY@0630 oxycodone 10 mg tablet 10 mg PO Q4H PRN (Reason: pain) Qty: 20 0RF Rx Instructions: Partial Fill upon patient request. Discontinued amoxicillin-pot clavulanate 875-125 mg tablet 1 tab PO BID Qty: 20 0RF Patient Comments: Pt started on Monday 04/16. Rx Instructions: 10 day treatment started 04/16 and ends 04/25 Discharge Orders: Discharge Order (Routine); Ordered 04/21/25 Ordered By: Jana Celeste Diet: Low salt diet Activity on Discharge: As tolerated Stand Alone Forms: Patient Portal Discharge page Print Language: Faroese Care Plan Goals: Patient to complete total antibiotic regimen with Bactrim Pain control Patient advised to return to the ED if not improving Health Concerns: See above Plan of Treatment: See above Assessment: See above
[2025-04-21 16:54] VITALS: BP 124/66; PULSE 81; RESP 18; TEMP 36.8; O2SAT 97
== END 2025-04-21 16:57 | disposition home or self-care (01) | DRG 720 ==
LOC: HO.ED 04-19 01:33 → HO.EDOVER 04-19 02:37 → HO.S3 04-19 14:24
PROVIDERS: Emergency Medicine; Admitting Provider Internal Medicine; Emergency Provider Emergency Medicine; Visit Provider Student in an Organized Health Care Education/Training Program
DX: A41.51 Sepsis due to Escherichia coli [E. coli] (principal); F17.210 Nicotine dependence, cigarettes, uncomplicated; N10 Acute pyelonephritis; Q61.3 Polycystic kidney, unspecified; Z71.6 Tobacco abuse counseling; Z79.899 Other long term (current) drug therapy
CPT/HCPCS: 36415; 71045; 74177; 80048; 80053; 81001; 83605; 83690; 83735; 84702; 85007; 85025; 85027; 87040; 87086; 99285; J0696; J1171; J1650; J1885; J2270; J2405; J7120; Q9967

== ENCOUNTER → 2025-04-18 20:49 | Outpatient (BNV) | payer OTHER, SELFPAY | PROVIDERS: Emergency Provider Emergency Medicine; Visit Provider Internal Medicine | DX: N12 Tubulo-interstitial nephritis, not specified as acute or chronic (principal); R91.8 Other nonspecific abnormal finding of lung field | CPT/HCPCS: 99223; 99232; 99239; 99499 ==

== ENCOUNTER 2025-04-19 00:37 | Outpatient (BNV) | payer OTHER, SELFPAY | END 2025-04-19 02:24 | PROVIDERS: Admitting Provider Internal Medicine; Emergency Provider Emergency Medicine; Visit Provider Radiology Neuroradiology | DX: N28.89 Other specified disorders of kidney and ureter (principal); N32.89 Other specified disorders of bladder; N12 Tubulo-interstitial nephritis, not specified as acute or chronic | CPT/HCPCS: 71045; 74177 ==